=== PATIENT | female | born 1975 | race Caucasian/White ===

== ENCOUNTER 2016-11-14 23:04 | Emergency (ER) | payer MEDICAID, OTHER ==
[2016-11-14] MEDS ORDERED: Sodium Chloride 0.9% 10 ML Syringe FLUSH PRN (23:31)
[2016-11-14] MEDS ORDERED: Sodium Chloride 0.9% 1,000 ML IV ONE (23:31)
[2016-11-14] MEDS ORDERED: Ondansetron 4 MG/2 ML SDV IVPUSH ONE (23:31)
--- NOTE | 2016-11-15 00:52 | EDM.PDOC ---
ED HPI GENERAL MEDICAL PROBLEM - General Chief Complaint: Gastrointestinal Problem Stated Complaint: VOMITING Time Seen by Provider: 11/14/16 23:30 Source of Information: Reports: Patient History Limitations: Reports: No Limitations - History of Present Illness INITIAL COMMENTS - FREE TEXT/NARRATIVE: 41 y/o F with hx prior cholecystectomy with vomiting. Has vomited about six times today. No diarrhea. No abd pain. Vomiting started this afternoon after eating. Still feels nauseated. No fever. No known exposure to contaminated food or water. No recent travel. No ill contacts. No dysuria/hematuria. No respiratory symptoms. - Related Data Allergies Allergy/AdvReac Type Severity Reaction Status Date / Time No Known Allergies Allergy Verified 05/17/16 04:24 Home Meds: Home Meds levETIRAcetam [Keppra] 1,000 mg PO QAM 08/19/13 [History] levETIRAcetam [Keppra] 1,500 mg PO BEDTIME 08/19/13 [History] Amoxicillin/Potassium Clav [Augmentin 875-125 Tablet] 1 each PO BID #14 tablet 05/17/16 [Rx] Benzonatate [Tessalon Perles] 100 mg PO TID PRN #21 cap 05/17/16 [Rx] Ondansetron [Zofran ODT] 4 mg PO Q4H PRN #16 tab.dis 11/15/16 [Rx] Past Medical History HEENT History: Reports: Impaired Vision Other HEENT History: Wears glasses Cardiovascular History: Reports: Hypertension Genitourinary History: Reports: UTI, Recurrent Neurological History: Reports: Headaches, Chronic, Migraines, Seizure Dermatologic History: Reports: Eczema - Infectious Disease History Infectious Disease History: Reports: Chicken Pox, Measles, Mumps - Past Surgical History GI Surgical History: Reports: Cholecystectomy Social & Family History - Family History Family Medical History: Noncontributory - Tobacco Use Smoking Status *Q: Never Smoker Second Hand Smoke Exposure: No - Caffeine Use Caffeine Use: Reports: Soda, Tea - Alcohol Use Days Per Week of Alcohol Use: 0 - Recreational Drug Use Recreational Drug Use: No - Living Situation & Occupation Living situation: Reports: Single Occupation: Unemployed ED ROS GENERAL - Review of Systems Review Of Systems: See Below Constitutional: Denies: Fever HEENT: Reports: No Symptoms Respiratory: Denies: Shortness of Breath Cardiovascular: Denies: Chest Pain GI/Abdominal: Reports: Nausea, Vomiting. Denies: Abdominal Pain : Denies: Dysuria, Flank Pain Musculoskeletal: Reports: No Symptoms Skin: Reports: No Symptoms Neurological: Reports: No Symptoms ED EXAM, GI/ABD - Physical Exam Exam: See Below Exam Limited By: No Limitations General Appearance: Alert, WD/WN, No Apparent Distress Eyes: Bilateral: Normal Appearance Ears: Normal External Exam Nose: Normal Inspection Throat/Mouth: Normal Inspection, Normal Voice, No Airway Compromise Head: Atraumatic, Normocephalic Neck: Normal Inspection, Supple, Non-Tender, Full Range of Motion Respiratory/Chest: No Respiratory Distress, Lungs Clear, Normal Breath Sounds, Chest Non-Tender Cardiovascular: Normal Peripheral Pulses, Regular Rate, Rhythm, No Murmur GI/Abdominal Exam: Soft, Non-Tender, No Distention. No: Rebound Back Exam: No: CVA Tenderness (L), CVA Tenderness (R) Extremities: Normal Inspection Course - Vital Signs Last Recorded V/S: Last Vital Signs Temp 36.2 C 11/14/16 23:21 Pulse 64 11/14/16 23:21 Resp 20 11/14/16 23:21 BP 134/79 11/14/16 23:21 Pulse Ox 96 11/14/16 23:21 - Orders/Labs/Meds Orders: Active Orders 24 hr Category Date Time Status Peripheral IV Care [RC] . DIRECTED Care 11/14/16 23:31 Active Peripheral IV Care [RC] . DIRECTED Care 11/14/16 23:31 Active Sodium Chloride 0.9% [Saline Flush] Med 11/14/16 23:31 Active 10 ml FLUSH ASDIRECTED PRN Peripheral IV Insertion Adult [OM.PC] Routine Oth 11/14/16 23:31 Ordered Medication Orders Sodium Chloride (Saline Flush) 10 ml FLUSH ASDIRECTED PRN PRN Reason: Keep Vein Open Last Admin: 11/15/16 00:15 Dose: 10 ml Labs: Laboratory Tests 11/15/16 11/15/16 Range/Units 00:10 00:10 WBC 12.27 H (3.98-10.04) K/mm3 RBC 4.56 (3.98-5.22) M/mm3 Hgb 13.2 (11.2-15.7) gm/L Hct 38.9 (34.1-44.9) % MCV 85.3 (79.4-94.8) fl MCH 28.9 (25.6-32.2) pg MCHC 33.9 (32.2-35.5) g/dl RDW Std Deviation 39.5 (36.4-46.3) fL Plt Count 312 (182-369) K/mm3 MPV 10.4 (9.4-12.3) fl Neut % (Auto) 80.8 H (34.0-71.1) % Lymph % (Auto) 12.1 L (19.3-51.7) % Curry % (Auto) 5.9 (4.7-12.5) % Eos % (Auto) 0.6 L (0.7-5.8) Baso % (Auto) 0.2 (0.1-1.2) % Neut # (Auto) 9.92 H (1.56-6.13) K/mm3 Lymph # (Auto) 1.48 (1.18-3.74) K/mm3 Curry # (Auto) 0.73 H (0.24-0.36) K/mm3 Eos # (Auto) 0.07 (0.04-0.36) K/mm3 Baso # (Auto) 0.02 (0.01-0.08) K/mm3 Sodium 137 (136-145) mEq/L Potassium 3.9 (3.5-5.1) mEq/L Chloride 100 (98-107) mEq/L Carbon Dioxide 25 (21-32) mEq/L Anion Gap 15.9 H (5-15) BUN 13 (7-18) mg/dL Creatinine 0.8 (0.55-1.02) mg/dL Est Cr Clr Drug Dosing 69.83 mL/min Estimated GFR (MDRD) > 60 (>60) mL/min BUN/Creatinine Ratio 16.3 (14-18) Glucose 126 H (74-106) mg/dL Calcium 8.9 (8.5-10.1) mg/dL Total Bilirubin 0.8 (0.2-1.0) mg/dL AST 25 (15-37) U/L ALT 36 (14-59) U/L Alkaline Phosphatase 105 (46-116) U/L Total Protein 7.9 (6.4-8.2) g/dl Albumin 4.0 (3.4-5.0) g/dl Globulin 3.9 gm/dL Albumin/Globulin Ratio 1.0 (1-2) Lipase 115 (73-393) U/L Meds: Medications Generic Name Dose Route Start Last Admin Trade Name Nai PRN Reason Stop Dose Admin Sodium Chloride 10 ml 11/14/16 23:31 11/15/16 00:15 Saline Flush FLUSH 10 ml ASDIRECTED PRN Administration Keep Vein Open Discontinued Medications Generic Name Dose Route Start Last Admin Trade Name Nai PRN Reason Stop Dose Admin Sodium Chloride 1,000 mls @ 1,000 mls/hr 11/14/16 23:31 11/15/16 00:14 Normal Saline IV 11/15/16 00:30 1,000 mls/hr ONETIME ONE Administration Ondansetron HCl 4 mg 11/14/16 23:31 11/15/16 00:15 Zofran IVPUSH 11/14/16 23:32 4 mg ONETIME ONE Administration - Re-Assessments/Exams Free Text/Narrative Re-Assessment/Exam: 11/15/16 00:49 Feels somewhat better after fluids/zofran. Still mildly queasy but hasn't vomited in the ED. Abd continues to be nontender. Possible gastroeteritis. Rx zofran. Discussed return precautions. Departure - Departure Time of Disposition: 01:16 Disposition: Home, Self-Care 01 Clinical Impression: Vomiting Qualifiers: Vomiting type: unspecified Vomiting Intractability: non-intractable Nausea presence: with nausea Qualified Code(s): R11.2 - Nausea with vomiting, unspecified - Discharge Information Prescriptions: Ondansetron [Zofran ODT] 4 mg PO Q4H PRN #16 tab.dis PRN Reason: Nausea Referrals: Tank Ugalde MD [Primary Care Provider] - Forms: ED Department Discharge Additional Instructions: 1. Take zofran as needed for nausea 2. Drink plenty of fluids. Try to drink frequent sips of clear liquids. Once you can tolerate clear liquids and are feeling better, advance your diet to include bland foods. 3. Follow up with your primary doctor as needed for further care. 4. Return to the ED if you have worsening vomiting, abdominal pain, or other concerning symptoms. - My Orders Last 24 Hours: My Active Orders 11/14/16 23:31 Peripheral IV Care [RC] . DIRECTED Peripheral IV Care [RC] . DIRECTED Sodium Chloride 0.9% [Saline Flush] 10 ml FLUSH ASDIRECTED PRN Peripheral IV Insertion Adult [OM.PC] Routine - Assessment/Plan Last 24 Hours: My Active Orders 11/14/16 23:31 Peripheral IV Care [RC] . DIRECTED Peripheral IV Care [RC] . DIRECTED Sodium Chloride 0.9% [Saline Flush] 10 ml FLUSH ASDIRECTED PRN Peripheral IV Insertion Adult [OM.PC] Routine
[2016-11-15 01:34] VITALS: BP 124/82
== END 2016-11-15 01:28 | disposition home or self-care (01) ==
LOC: JD.ED 23:04
DX: R11.2 Nausea with vomiting, unspecified (principal); I10 Essential (primary) hypertension; Z87.440 Personal history of urinary (tract) infections; Z90.49 Acquired absence of other specified parts of digestive tract
CPT/HCPCS: 36415; 80053; 83690; 85025; 96361; 96374; 99284; J2405; J7040; J7050

== ENCOUNTER 2018-07-25 23:32 | Emergency (ER) | payer MEDICAID ==
[2018-07-25 23:47] VITALS: BP 133/89
--- NOTE | 2018-07-26 00:07 | EDM.PDOC ---
ED HPI GENERAL MEDICAL PROBLEM - General Chief Complaint: Abdominal Pain Stated Complaint: VOMITING/DIARRHEA Time Seen by Provider: 07/26/18 00:02 Source of Information: Reports: Patient History Limitations: Reports: No Limitations - History of Present Illness INITIAL COMMENTS - FREE TEXT/NARRATIVE: 43-year-old female presents the ED with acute onset of diarrhea first about 12 hours before she started to have nausea and vomiting. Diarrhea has been prolific almost every 20-30 minutes. She reports a large volume stool losses of yellowish fluid. No blood. Started vomiting about 1800 hrs. and has continued to vomit almost every half hour. This includes dry heaves with bilious emesis and no blood. Learning large quantities of bilious material when I was in the examining room. Her's is stool smells of rotavirus type infection. No nose at home is ill. Denies fever or chills. Diffuse lower abdominal cramping pain. Onset: Today Onset Date: 07/25/18 Onset Time: 08:00 (Chest with abdominal pain cramping and diarrhea about 8:00 this morning.) Duration: Hour(s):, Getting Worse, Other (Vomiting about 1800 hrs. today. Nothing his stay down) Location: Reports: Abdomen (Nausea vomiting and diarrhea. Diffuse lower abdominal cramping pain), Generalized (Weakness) Quality: Reports: Other Severity: Moderate (Intermittent upper and lower abdominal cramping pain) Improves with: Reports: None ( did attend) Worsens with: Reports: Eating Context: Reports: Other (Continuous occurrence). Denies: Activity, Exercise, Lifting, Sick Contact, Trauma Associated Symptoms: Reports: Loss of Appetite, Malaise, Nausea/Vomiting, Weakness (Generalized.). Denies: Confusion, Chest Pain, Cough, cough w sputum, Diaphoresis, Fever/Chills, Headaches, Rash, Seizure, Shortness of Breath, Syncope Treatments CAR CHASER: Reports: Other (see below) (Nothing will stay down) Abdominal Pain Score (Numeric/FACES): 7 - Related Data Allergies Allergy/AdvReac Type Severity Reaction Status Date / Time No Known Allergies Allergy Verified 07/25/18 23:47 Home Meds: Home Meds levETIRAcetam [Keppra] 1,000 mg PO QAM 08/19/13 [History] levETIRAcetam [Keppra] 1,500 mg PO BEDTIME 08/19/13 [History] Dicyclomine [Bentyl] 20 mg PO Q6H PRN #5 tablet 07/26/18 [Rx] Ondansetron [Zofran] 4 mg BUCCAL Q6H PRN #10 tab 07/26/18 [Rx] Past Medical History HEENT History: Reports: Impaired Vision Other HEENT History: Wears glasses Cardiovascular History: Reports: Hypertension Genitourinary History: Reports: UTI, Recurrent Neurological History: Reports: Headaches, Chronic, Migraines, Seizure Dermatologic History: Reports: Eczema - Infectious Disease History Infectious Disease History: Reports: Chicken Pox, Measles, Mumps - Past Surgical History GI Surgical History: Reports: Cholecystectomy Social & Family History - Family History Family Medical History: Noncontributory - Tobacco Use Smoking Status *Q: Never Smoker - Caffeine Use Caffeine Use: Reports: None - Recreational Drug Use Recreational Drug Use: No - Living Situation & Occupation Living situation: Reports: Single Occupation: Unemployed ED ROS GENERAL - Review of Systems Review Of Systems: See Below Constitutional: Reports: Malaise, Weakness, Fatigue, Decreased Appetite. Denies : Fever, Chills HEENT: Reports: Glasses Respiratory: Reports: No Symptoms Cardiovascular: Reports: No Symptoms Endocrine: Reports: Fatigue GI/Abdominal: Reports: Abdominal Pain (Both upper abdominal pain in epigastrium and lower abdominal cramping pain.), Diarrhea (Fairly large volume yellowish stool.), Nausea, Vomiting (Has vomited about 8 times since 1800 hrs. today. She estimates diarrhea greater than 20 times. Small possibility of foodborne poisoning or toxin exposure by eating out at [facility] 2 days ago) : Reports: Other (Decreased urinary output) Musculoskeletal: Reports: No Symptoms Skin: Reports: No Symptoms Neurological: Reports: No Symptoms, Seizure Psychiatric: Reports: Anxiety Hematologic/Lymphatic: Reports: No Symptoms (Has a seizure disorder taking 1000 mg of Keppra in the morning and 1500 mg at bedtime.) Immunologic: Reports: No Symptoms ED EXAM, GI/ABD - Physical Exam Exam: See Below Exam Limited By: No Limitations General Appearance: Alert, Moderate Distress (She has vomiting large quantities of bilious material him in the room.) Eyes: Bilateral: Normal Appearance (No scleral icterus) Head: Atraumatic, Normocephalic Neck: Normal Inspection, Supple, Non-Tender, Full Range of Motion. No: Lymphadenopathy (L), Lymphadenopathy (R) Respiratory/Chest: No Respiratory Distress, Lungs Clear, Normal Breath Sounds, No Accessory Muscle Use Cardiovascular: Normal Peripheral Pulses, Regular Rate, Rhythm, No Edema, No Gallop, No Murmur, No Rub GI/Abdominal Exam: Tender (Mildly tender to palpation in the epigastrium which appears to be muscular.), Abnormal Bowel Sounds (I'll sounds are hyperactive in all 4 quadrants). No: Guarding, Rigid, Rebound Extremities: Normal Inspection, Normal Range of Motion, Non-Tender Neurological: Alert, Oriented, CN II-XII Intact, Normal Cognition Psychiatric: Anxious Skin Exam: Warm, Dry, Intact, Normal Color, No Rash, Other (Does feel mildly warm to palpation) Course - Vital Signs Last Recorded V/S: Last Vital Signs Temp 37.1 C 07/25/18 23:44 Pulse 88 07/25/18 23:44 Resp 16 07/25/18 23:44 BP 133/89 07/25/18 23:44 Pulse Ox 95 07/25/18 23:44 - Orders/Labs/Meds Orders: Active Orders 24 hr Category Date Time Status C DIFFICILE BY PCR W/NAP1 [MOLEC] Stat Lab 07/26/18 02:06 Received CULTURE STOOL + SHIGATOX [RM] Stat Lab 07/26/18 02:06 Received Dextrose 5%-Lactated Ringers 1,000 ml Med 07/26/18 00:15 Active IV ASDIRECTED Ketorolac [Toradol] Med 07/26/18 00:15 Active 30 mg IVPUSH ONETIME Isolation [COMM] Stat Oth 07/26/18 00:10 Ordered Medication Orders Dextrose/Lactated Ringer's (Dextrose 5%-Lactated Ringers) 1,000 mls @ 999 mls/ hr IV ASDIRECTED ZENA Last Admin: 07/26/18 00:22 Dose: 999 mls/hr Ketorolac Tromethamine (Toradol) 30 mg IVPUSH ONETIME ZENA Last Admin: 07/26/18 00:24 Dose: 30 mg Labs: Laboratory Tests 07/26/18 07/26/18 Range/Units 00:35 00:35 WBC 12.46 H (3.98-10.04) K/mm3 RBC 4.54 (3.98-5.22) M/mm3 Hgb 12.8 (11.2-15.7) gm/L Hct 39.4 (34.1-44.9) % MCV 86.8 (79.4-94.8) fl MCH 28.2 (25.6-32.2) pg MCHC 32.5 (32.2-35.5) g/dl RDW Std Deviation 40.9 (36.4-46.3) fL Plt Count 298 (182-369) K/mm3 MPV 10.5 (9.4-12.3) fl Neutrophils % (Manual) 87 H (40-60) % Band Neutrophils % 4 (0-10) % Lymphocytes % (Manual) 7 L (20-40) % Atypical Lymphs % 0 % Monocytes % (Manual) 1 L (2-10) % Eosinophils % (Manual) 1 (0.7-5.8) % Basophils % (Manual) 0 L (0.1-1.2) Toxic Granulation 1+ slight Platelet Estimate Adequate Plt Morphology Comment Normal RBC Morph Comment Normal Sodium 137 (136-145) mEq/L Potassium 3.8 (3.5-5.1) mEq/L Chloride 102 (98-107) mEq/L Carbon Dioxide 25 (21-32) mEq/L Anion Gap 13.8 (5-15) BUN 11 (7-18) mg/dL Creatinine 0.9 (0.55-1.02) mg/dL Est Cr Clr Drug Dosing 60.82 mL/min Estimated GFR (MDRD) > 60 (>60) mL/min BUN/Creatinine Ratio 12.2 L (14-18) Glucose 189 H (74-106) mg/dL Calcium 9.3 (8.5-10.1) mg/dL Total Bilirubin 0.9 (0.2-1.0) mg/dL AST 22 (15-37) U/L ALT 30 (14-59) U/L Alkaline Phosphatase 100 (46-116) U/L C-Reactive Protein 2.0 H* (<1.0) mg/dL Total Protein 7.3 (6.4-8.2) g/dl Albumin 3.4 (3.4-5.0) g/dl Globulin 3.9 gm/dL Albumin/Globulin Ratio 0.9 L (1-2) Lipase 85 (73-393) U/L Meds: Medications Generic Name Dose Route Start Last Admin Trade Name Freq PRN Reason Stop Dose Admin Dextrose/Lactated Ringer's 1,000 mls @ 999 mls/hr 07/26/18 00:15 07/26/18 00: 22 Dextrose 5%-Lactated Ringers IV 999 mls/hr ASDIRECTED ZENA Administration Ketorolac Tromethamine 30 mg 07/26/18 00:15 07/26/18 00:24 Toradol IVPUSH 30 mg ONETIME ZENA Administration Discontinued Medications Generic Name Dose Route Start Last Admin Trade Name Nai PRN Reason Stop Dose Admin Dicyclomine HCl 20 mg 07/26/18 03:02 07/26/18 03:18 Bentyl PO 07/26/18 03:03 20 mg ONETIME ONE Administration Diphenhydramine HCl 25 mg 07/26/18 00:08 07/26/18 00:23 Benadryl IVPUSH 07/26/18 00:09 25 mg ONETIME ONE Administration Metoclopramide HCl 10 mg 07/26/18 00:08 07/26/18 00:20 Reglan IVPUSH 07/26/18 00:09 10 mg ONETIME ONE Administration Ondansetron HCl 4 mg 07/26/18 03:01 07/26/18 03:18 Zofran IVPUSH 07/26/18 03:02 4 mg ONETIME ONE Administration - Radiology Interpretation Free Text/Narrative:: 43-year-old female presents to the ED with acute onset of nausea vomiting and severe diarrhea. Diarrhea started this morning upon awakening loose watery and yellow large quantities almost every 20 minutes. She denies being on any antibiotics in the last 6 weeks. Small possibility of foodborne illness associated [facility] 2 days ago. She has prolific diarrhea and started vomiting about 1800 hrs. Tends to vomit while in the ED. Grade fever clinically. Plan stool if one becomes available will be checked for C. difficile since her diarrhea so prolific and also for white blood cells. She smells like rotavirus infection however. Plan IV D5 Ringer's lactate at open. Reglan 10 mg IV with Benadryl 25 mg IV for nausea relief. Toradol 30 mg IV for abdominal cramping pain relief. Routine labs ordered. - Re-Assessments/Exams Free Text/Narrative Re-Assessment/Exam: 07/26/18 01:49 Patient reports feeling much better with no further nausea or vomiting. She's had no diarrhea since she's been in the department. Labs are back. White count is elevated at 12.46 with 87 neutrophils and 4% band cells reported. Hemoglobin is 12.8. Hematocrit is 39.4 .Platlet Count 298,000.. Sodium is 137 with a potassium of 3.8. Chloride 102 with a bicarbonate 25. Anion gap is 13.8. BUN is 11 with a creatinine of 0.9. GFR is greater than 60. Glucose is 189. Calcium is 9.3 bilirubin 0.9 with remainder liver function normal C-reactive protein is 2.0. Total protein is 7.3 with an albumin fraction of 3.4. Lipase is normal at 85 07/26/18 02:00 I am going to wait for a stool sample to identify whether or not there is a bacterial component of her illness due to elevated CRP at 2.0 and elevated white count with left shift. 07/26/18 02:53 patient has been able to provide a stool sample and were waiting for the results of this test before discharging her. 07/26/18 03:02 starting to feel mildly nauseated again. We'll give her Zofran 4 mg IV. Will also give her Bentyl 20 mg by mouth. Still awaiting the results of the stool analysis. 07/26/18 03:42 initial stool sample came back negative for any white blood cells. This suggests a viral etiology. Will therefore be discharged to home using Zofran 4 mg every 4 hours when necessary for nausea relief and Bentyl 20 mg every 6 hours needed for control of vomiting and abdominal cramping. Clear fluid diet to slowly be advanced to full fluids over the next day and a half. Departure - Departure Time of Disposition: 03:43 Disposition: Home, Self-Care 01 Condition: Fair Clinical Impression: Gastroenteritis, Vomiting - Discharge Information *PRESCRIPTION DRUG MONITORING PROGRAM REVIEWED*: Not Applicable *COPY OF PRESCRIPTION DRUG MONITORING REPORT IN PATIENT HERMINIA: Not Applicable Prescriptions: Dicyclomine [Bentyl] 20 mg PO Q6H PRN #5 tablet PRN Reason: Abdominal cramps/diarrhea Ondansetron [Zofran] 4 mg BUCCAL Q6H PRN #10 tab PRN Reason: nausea or vomiting Referrals: Tank Ugalde MD [Primary Care Provider] - Forms: ED Department Discharge Additional Instructions: Evaluation the emergency room this morning in regards to development of severe gastroenteritis with nausea vomiting and excessive amount of diarrhea. You're treated in the ER with medications to stop vomiting and intravenous fluid replacement therapy. Tests are suggestive of a possible bacterial source of illness and therefore you're kept in the ED until stool cultures and sampling could be obtained. Treatment at home is clear fluids such as Gatorade/Powerade 5 -6 ounces sipped per hour to maintain hydration. We try soda crackers first that this is tolerated may have Jell-O at any time. Suggest a trial of toast with jam only on it or bread with jam. If this is tolerated may advance to broth soup or turkey rice last chicken noodle soup. Avoid all dairy products and no apple juice or grape juice until stools are formed backup which will usually be 4 days after the diarrhea stops. He was sent home with a prescription for Zofran 4 mg to be taken under the tongue every 4-6 hours necessary to prevent any further nausea or vomiting so that she can keep fluids down. Suggest use of Bentyl 20 mg every 6 hours for 3 doses and then only as needed if you have further diarrhea. - My Orders Last 24 Hours: My Active Orders 07/26/18 00:10 Isolation [COMM] Stat 07/26/18 00:15 Dextrose 5%-Lactated Ringers 1,000 ml IV ASDIRECTED Ketorolac [Toradol] 30 mg IVPUSH ONETIME 07/26/18 02:06 C DIFFICILE BY PCR W/NAP1 [MOLEC] Stat CULTURE STOOL + SHIGATOX [RM] Stat - Assessment/Plan Last 24 Hours: My Active Orders 07/26/18 00:10 Isolation [COMM] Stat 07/26/18 00:15 Dextrose 5%-Lactated Ringers 1,000 ml IV ASDIRECTED Ketorolac [Toradol] 30 mg IVPUSH ONETIME 07/26/18 02:06 C DIFFICILE BY PCR W/NAP1 [MOLEC] Stat CULTURE STOOL + SHIGATOX [RM] Stat
[2018-07-26] MEDS ORDERED: Metoclopramide 10 MG/2 ML SDV IVPUSH ONE (00:08)
[2018-07-26] MEDS ORDERED: diphenhydrAMINE 50 MG/ML SDV IVPUSH ONE (00:08)
[2018-07-26] MEDS ORDERED: Dextrose 5%-Lactated Ringers 1,000 ML IV SCH (00:15)
[2018-07-26] MEDS ORDERED: Ketorolac 30 MG/ML SDV IVPUSH SCH (00:15)
[2018-07-26] MEDS ORDERED: Ondansetron 4 MG/2 ML SDV IVPUSH ONE (03:01)
[2018-07-26] MEDS ORDERED: Dicyclomine 10 MG Cap PO ONE (03:02)
[2018-07-26] MEDS ORDERED: Ondansetron 4 MG Tab.DIS PO ONE (03:53)
== END 2018-07-26 03:58 | disposition home or self-care (01) ==
LOC: JD.ED 23:32
DX: K52.9 Noninfective gastroenteritis and colitis, unspecified (principal); I10 Essential (primary) hypertension; Z79.899 Other long term (current) drug therapy
CPT/HCPCS: 36415; 80053; 83690; 85007; 85027; 86140; 87046; 87427; 87493; 89055; 96361; 96374; 96375; 99284; A9270; J1200; J1885; J2405; J2765; J7042

== ENCOUNTER 2019-01-09 08:53 | Emergency (ER) | payer MEDICAID ==
[2019-01-09 09:10] VITALS: BP 159/107; PULSE 87
--- NOTE | 2019-01-09 10:36 | CR ---
Left shoulder: Three views of the left shoulder were obtained. Comparison: No prior left shoulder exam is available. Small calcifications are seen off the lateral humeral head likely representing changes of calcific tendinitis. Acromioclavicular joint appears within normal limits. No acute fracture or other abnormality is seen. Impression: 1. Calcifications which are felt compatible with calcific tendinitis. Diagnostic code #3
--- NOTE | 2019-01-09 12:11 | EDM.PDOC ---
ED HPI GENERAL MEDICAL PROBLEM - General Chief Complaint: Upper Extremity Injury/Pain Stated Complaint: LT ARM PAIN Time Seen by Provider: 01/09/19 09:27 Source of Information: Reports: Patient, RN Notes Reviewed - History of Present Illness INITIAL COMMENTS - FREE TEXT/NARRATIVE: 43-year-old lady comes in the left shoulder pain. He states the left shoulder started hurting her about 10 days ago. Not aware of any particular injury. Fallen. Eyes history of prior problems with the left shoulder. No other joints giving her trouble at this time. No fever or chills. Left Shoulder Pain Score (Numeric/FACES): 10 - Related Data Allergies Allergy/AdvReac Type Severity Reaction Status Date / Time No Known Allergies Allergy Verified 01/09/19 09:11 Home Meds: Home Meds levETIRAcetam [Keppra] 1,000 mg PO QAM 08/19/13 [History] levETIRAcetam [Keppra] 1,500 mg PO BEDTIME 08/19/13 [History] Naproxen [Naprosyn] 500 mg PO Q12HR #14 tab 01/09/19 [Rx] Past Medical History HEENT History: Reports: Impaired Vision Other HEENT History: Wears glasses Cardiovascular History: Reports: Hypertension Genitourinary History: Reports: UTI, Recurrent Neurological History: Reports: Headaches, Chronic, Migraines, Seizure Dermatologic History: Reports: Eczema - Infectious Disease History Infectious Disease History: Reports: Chicken Pox, Measles, Mumps - Past Surgical History GI Surgical History: Reports: Cholecystectomy Social & Family History - Family History Family Medical History: Noncontributory - Tobacco Use Smoking Status *Q: Never Smoker - Caffeine Use Caffeine Use: Reports: Coffee, Soda - Living Situation & Occupation Living situation: Reports: Single Occupation: Unemployed Review of Systems - Review of Systems Review Of Systems: See Below Constitutional: Denies: Chills, Fever Mouth/Throat: Reports: No Symptoms Respiratory: Denies: Shortness of Breath, Wheezing Cardiovascular: Denies: Chest Pain GI/Abdominal: Denies: Abdominal Pain, Nausea, Vomiting Musculoskeletal: Reports: Shoulder Pain, Other (The pain does have time radiate to her left wrist and hand, the pain is worse with motion). Denies: Neck Pain, Back Pain Skin: Reports: No Symptoms Neurological: Denies: Numbness, Tingling, Weakness ED EXAM, GENERAL - Physical Exam Exam: See Below General Appearance: Alert, Mild Distress Head: Atraumatic Neck: Supple, Non-Tender, Full Range of Motion Respiratory/Chest: No Respiratory Distress, Lungs Clear, Normal Breath Sounds Cardiovascular: Regular Rate, Rhythm Extremities: Other (There is moderate localized tenderness anterior left shoulder, lateral superior posterior shoulder nontender. She does have pain with motion and every direction including abduction. No effusion, no warmth or erythema.) Neurological: Alert, Oriented Skin Exam: Warm, Dry, Normal Color Course - Vital Signs Last Recorded V/S: Last Vital Signs Temp 97.9 F 01/09/19 09:06 Pulse 87 01/09/19 09:06 Resp 18 01/09/19 09:06 BP 159/107 H 01/09/19 09:06 Pulse Ox 97 01/09/19 09:06 - Re-Assessments/Exams Free Text/Narrative Re-Assessment/Exam: 01/09/19 12:21 X-rays of the shoulder do not show acute fracture but do show larger calcification and a couple of smaller calcifications also right off of the proximal humerus. awaiting radiology report. Discharge instructions as documented. Departure - Departure Time of Disposition: 12:09 Disposition: Home, Self-Care 01 Condition: Fair Clinical Impression: Shoulder pain, left Qualifiers: Chronicity: acute Qualified Code(s): M25.512 - Pain in left shoulder - Discharge Information Prescriptions: Naproxen [Naprosyn] 500 mg PO Q12HR #14 tab Instructions: Shoulder Pain, [id number] Referrals: Tank Ugalde MD [Primary Care Provider] - Forms: ED Department Discharge Additional Instructions: Rest left arm and shoulder, alternate ice and heat as needed. Naprosyn 500 mg twice daily for pain and inflammation, see Dr. La, Orthopedist next available appointment.
== END 2019-01-09 12:20 | disposition home or self-care (01) ==
LOC: JD.ED 08:53
DX: M25.512 Pain in left shoulder (principal); I10 Essential (primary) hypertension; Z90.49 Acquired absence of other specified parts of digestive tract
CPT/HCPCS: 73030-26-LT; 73030-LT; 99283; 99283-25

== ENCOUNTER 2019-01-10 19:31 | Emergency (ER) | payer MEDICAID ==
[2019-01-10 20:03] VITALS: BP 157/116; PULSE 86
[2019-01-10] MEDS ORDERED: Ketorolac 60 MG/2 ML SDV IM ONE (22:08)
[2019-01-10] MEDS ORDERED: Ondansetron 4 MG Tab.DIS PO ONE (22:08)
--- NOTE | 2019-01-10 22:22 | EDM.PDOC ---
ED HPI GENERAL MEDICAL PROBLEM - General Chief Complaint: Upper Extremity Injury/Pain Stated Complaint: LEFT SHOULDER PAIN/UPPER ARM Time Seen by Provider: 01/10/19 21:52 Source of Information: Reports: Patient, Old Records, RN Notes Reviewed History Limitations: Reports: No Limitations - History of Present Illness INITIAL COMMENTS - FREE TEXT/NARRATIVE: Patient is a 43-year-old female who presents to the ED for evaluation of left shoulder pain. The patient was evaluated here yesterday by Dr. Perera, and was found to not have any started fracture or bony abnormality in her left shoulder joint. Patient states that she was given naproxen for pain relief, and she did take 2 doses as prescribed however this has not provided much relief. Patient states that she feels quite nervous having to see Dr. La tomorrow, and she is having some subsequent nausea with this. She states that today while she was at a friend's house playing cards she started thinking about seeing the orthopedist, and began to feel hot, nauseous and felt a small headache. Patient states she is not gotten much sleep last night due to the pain in her shoulder. Left Arm Pain Score (Numeric/FACES): 8 - Related Data Allergies Allergy/AdvReac Type Severity Reaction Status Date / Time No Known Allergies Allergy Verified 01/10/19 20:03 Home Meds: Home Meds levETIRAcetam [Keppra] 1,000 mg PO QAM 08/19/13 [History] levETIRAcetam [Keppra] 1,500 mg PO BEDTIME 08/19/13 [History] Naproxen [Naprosyn] 500 mg PO Q12HR #14 tab 01/09/19 [Rx] Ondansetron [Zofran ODT] 4 mg PO Q8H PRN #10 tab.dis 01/10/19 [Rx] Past Medical History HEENT History: Reports: Impaired Vision Other HEENT History: Wears glasses Cardiovascular History: Reports: Hypertension Respiratory History: Reports: None Genitourinary History: Reports: UTI, Recurrent 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 Musculoskeletal History: Reports: Arthritis Neurological History: Reports: Headaches, Chronic, Migraines, Seizure Psychiatric History: Reports: None Endocrine/Metabolic History: Reports: Obesity/BMI 30+ Hematologic History: Reports: None Immunologic History: Reports: None Oncologic (Cancer) History: Reports: None Dermatologic History: Reports: Eczema - Infectious Disease History Infectious Disease History: Reports: Chicken Pox, Measles, Mumps - Past Surgical History Head Surgeries/Procedures: Reports: None GI Surgical History: Reports: Cholecystectomy Social & Family History - Family History Family Medical History: Noncontributory - Tobacco Use Smoking Status *Q: Never Smoker - Caffeine Use Caffeine Use: Reports: Coffee, Soda - Recreational Drug Use Recreational Drug Use: No - Living Situation & Occupation Living situation: Reports: Single Occupation: Unemployed Review of Systems - Review of Systems Review Of Systems: See Below Constitutional: Reports: No Symptoms Eyes: Reports: No Symptoms Ears: Reports: No Symptoms Nose: Reports: No Symptoms Mouth/Throat: Reports: No Symptoms Respiratory: Reports: No Symptoms Cardiovascular: Reports: No Symptoms GI/Abdominal: Reports: Nausea. Denies: Vomiting Genitourinary: Reports: No Symptoms Musculoskeletal: Reports: Shoulder Pain (Left) Skin: Reports: No Symptoms Neurological: Denies: Numbness, Pre-Existing Deficit, Tingling Psychiatric: Reports: No Symptoms ED EXAM, GENERAL - Physical Exam Exam: See Below Exam Limited By: No Limitations General Appearance: Alert, WD/WN, No Apparent Distress, Anxious Throat/Mouth: Normal Inspection, Normal Lips, Normal Teeth, Normal Gums, Normal Oropharynx, Normal Voice, No Airway Compromise Head: Atraumatic, Normocephalic Respiratory/Chest: No Respiratory Distress, Lungs Clear, Normal Breath Sounds, No Accessory Muscle Use, Chest Non-Tender Cardiovascular: Normal Peripheral Pulses, Regular Rate, Rhythm, No Murmur Peripheral Pulses: 3+: Radial (L), Radial (R) GI/Abdominal: Normal Bowel Sounds, Soft, Non-Tender, No Distention, No Mass Extremities: Normal Inspection, Normal Capillary Refill, Limited Range of Motion (of left shoulder d/t pain) Neurological: Alert, Oriented, Normal Cognition, No Motor/Sensory Deficits Psychiatric: Normal Affect, Normal Mood, Anxious Skin Exam: Warm, Dry, Intact, Normal Color, No Rash Course - Vital Signs Last Recorded V/S: Last Vital Signs Temp 98.3 F 01/10/19 20:00 Pulse 86 01/10/19 20:00 Resp 16 01/10/19 20:00 BP 157/116 H 01/10/19 20:00 Pulse Ox 97 01/10/19 20:00 - Orders/Labs/Meds Orders: Active Orders 24 hr Category Date Time Status levETIRAcetam [Keppra] Med 01/11/19 22:08 Once 1,500 mg PO ONETIME ONE Medication Orders Levetiracetam (Keppra) 1,500 mg PO ONETIME ONE Stop: 01/11/19 22:09 Meds: Medications Generic Name Dose Route Start Last Admin Trade Name Freq PRN Reason Stop Dose Admin Levetiracetam 1,500 mg 01/11/19 22:08 Keppra PO 01/11/19 22:09 ONETIME ONE Discontinued Medications Generic Name Dose Route Start Last Admin Trade Name Freq PRN Reason Stop Dose Admin Ketorolac Tromethamine 60 mg 01/10/19 22:08 Toradol IM 01/10/19 22:09 ONETIME ONE Ondansetron HCl 4 mg 01/10/19 22:08 Zofran Odt PO 01/10/19 22:09 ONETIME ONE - Re-Assessments/Exams Free Text/Narrative Re-Assessment/Exam: 01/10/19 22:20 Patient presents to the ED for evaluation of shoulder pain. The patient's last dose approximately this morning, this is not providing much benefit I will give her a injection of Toradol, for milligrams Zofran for nausea relief in the ER, the patient will see Dr. La tomorrow, and they will come up with an appropriate pain control plan. Patient states that she normally takes 1500 mg of Keppra at 9 PM, however due to the long wait time in the ER tonight she was unable to take her home dose, I did order 1 dose of this as well. We'll discharge the patient home with general recommendations Departure - Departure Time of Disposition: 22:20 Disposition: Home, Self-Care 01 Condition: Fair Clinical Impression: Left shoulder pain Qualifiers: Chronicity: acute Qualified Code(s): M25.512 - Pain in left shoulder - Discharge Information *PRESCRIPTION DRUG MONITORING PROGRAM REVIEWED*: No *COPY OF PRESCRIPTION DRUG MONITORING REPORT IN PATIENT HERMINIA: No Prescriptions: Ondansetron [Zofran ODT] 4 mg PO Q8H PRN #10 tab.dis PRN Reason: Nausea Instructions: Shoulder Range of Motion Exercises, Shoulder Pain, [id number] Referrals: Tank Ugalde MD [Primary Care Provider] - Additional Instructions: You have been evaluated in the ED for your left shoulder pain. Please use ice as tolerated to the affected area. You were given a dose of antinausea medication, and an anti-inflammatory injection in management of your pain relief and nausea at [facility]'s ER visit. Follow-up with Dr. La tomorrow for your scheduled appointment for further management of your shoulder pain. Please return to ED if your symptoms should change or worsen. - My Orders Last 24 Hours: My Active Orders 01/11/19 22:08 levETIRAcetam [Keppra] 1,500 mg PO ONETIME ONE - Assessment/Plan Last 24 Hours: My Active Orders 01/11/19 22:08 levETIRAcetam [Keppra] 1,500 mg PO ONETIME ONE
[2019-01-10] MEDS ORDERED: levETIRAcetam 500 MG Tab ONE (22:26)
[2019-01-11] MEDS ORDERED: levETIRAcetam 500 MG Tab PO ONE (22:08)
== END 2019-01-10 22:40 | disposition home or self-care (01) ==
LOC: JD.ED 19:31
DX: M25.512 Pain in left shoulder (principal); I10 Essential (primary) hypertension; E66.9 Obesity, unspecified; Z90.49 Acquired absence of other specified parts of digestive tract; Z68.42 Body mass index [BMI] 45.0-49.9, adult
CPT/HCPCS: 96372; 99282; A9270; J1885; 99283

== ENCOUNTER 2019-05-30 13:14 | Emergency (ER) | payer MEDICAID ==
--- NOTE | 2019-05-30 13:59 | EDM.PDOC ---
<Karley Carrera - Last Filed: 05/30/19 13:51> ED HPI GENERAL MEDICAL PROBLEM - General Chief Complaint: Abdominal Pain Stated Complaint: L SIDE PAIN Time Seen by Provider: 05/30/19 13:35 Source of Information: Reports: Patient History Limitations: Reports: No Limitations - History of Present Illness INITIAL COMMENTS - FREE TEXT/NARRATIVE: Patient is a pleasant 44-year-old female who has a history of epilepsy presents to the ED for intermittent left lower abdominal pain, constipation, and a decreased appetite. She reports the pain started a week ago, lasted for three days, then resolved, where she had no pain for a day, then the pain started again on Wednesday. Today is Wednesday. The pain is intermittent and ranges from a cramping pain to a sharp pain at times. With rest the pain is about a 2/10 but with movement or palpation the pain increases to an 8/10. She occasionally will feel nauseous when the pain comes on. She has not felt like eating for the past week, but has been trying to stay on top of fluids. Normally the patient reports she has a bowel movement 2-3 times per day, but for the past few days she has only gone once each day and it is a small amount of hard stool. She took Ex-Lax and 2 cups of prune juice last night. No results until arrival in the ED today. She reports when she arrived in the ED her lower abdomen cramped and she had two small bowel movements. The first movement was a small amount of hard stool and the second movement was a small amount of watery stool. Denies noting blood in any bowel movements in the past week. Denies nausea, vomiting, shortness of breath, or chest pain. Left Lower Abdominal Pain Score (Numeric/FACES): 2 - Related Data Allergies Allergy/AdvReac Type Severity Reaction Status Date / Time No Known Allergies Allergy Verified 05/30/19 14:50 Home Meds: Home Meds levETIRAcetam [Keppra] 1,000 mg PO QAM 08/19/13 [History] levETIRAcetam [Keppra] 1,500 mg PO BEDTIME 08/19/13 [History] Ondansetron [Zofran ODT] 4 mg PO Q8H PRN #10 tab.dis 01/10/19 [Rx] Amoxicillin/Clavulanate K [Augmentin 875-125 MG] 1 tab PO BID #20 tablet [Rx] Naproxen [Naprosyn] 500 mg PO Q12HR PRN 05/30/19 [History] Past Medical History HEENT History: Reports: Impaired Vision Other HEENT History: Wears glasses Cardiovascular History: Reports: Hypertension Respiratory History: Reports: None Genitourinary History: Reports: UTI, Recurrent 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 Musculoskeletal History: Reports: Arthritis Neurological History: Reports: Headaches, Chronic, Migraines, Seizure Psychiatric History: Reports: None Endocrine/Metabolic History: Reports: Obesity/BMI 30+ Hematologic History: Reports: None Immunologic History: Reports: None Oncologic (Cancer) History: Reports: None Dermatologic History: Reports: Eczema - Infectious Disease History Infectious Disease History: Reports: Chicken Pox, Measles, Mumps - Past Surgical History Head Surgeries/Procedures: Reports: None GI Surgical History: Reports: Cholecystectomy Social & Family History - Family History Family Medical History: Noncontributory - Tobacco Use Smoking Status *Q: Never Smoker Second Hand Smoke Exposure: No - Caffeine Use Caffeine Use: Reports: None - Recreational Drug Use Recreational Drug Use: No - Living Situation & Occupation Living situation: Reports: Single Occupation: Unemployed ED ROS GENERAL - Review of Systems Review Of Systems: See Below Constitutional: Reports: Decreased Appetite. Denies: Fever, Chills, Weakness Respiratory: Reports: No Symptoms. Denies: Shortness of Breath, Cough Cardiovascular: Reports: No Symptoms. Denies: Chest Pain, Edema, Syncope GI/Abdominal: Reports: Abdominal Pain (left lower quadrant that radiates to lower back), Constipation, Decreased Appetite, Nausea (intermittent). Denies: Black Stool, Bloody Stool, Diarrhea, Vomiting : Reports: No Symptoms. Denies: Dysuria Musculoskeletal: Reports: No Symptoms. Denies: Neck Pain, Back Pain Skin: Reports: No Symptoms. Denies: Rash Neurological: Reports: No Symptoms. Denies: Dizziness, Headache, Syncope Psychiatric: Reports: No Symptoms ED EXAM, GI/ABD - Physical Exam Exam: See Below Exam Limited By: No Limitations General Appearance: Alert, WD/WN, No Apparent Distress Head: Atraumatic, Normocephalic Neck: Normal Inspection, Supple, Non-Tender, Full Range of Motion Respiratory/Chest: No Respiratory Distress, Lungs Clear, Normal Breath Sounds, No Accessory Muscle Use, Chest Non-Tender Cardiovascular: Normal Peripheral Pulses, Regular Rate, Rhythm, No Edema, No Gallop, No Murmur, No Rub GI/Abdominal Exam: Soft, No Organomegaly, No Distention, No Mass, Abnormal Bowel Sounds (decreased in all four quadrants), Other (tender with palpation over LUQ ) Back Exam: Normal Inspection, Full Range of Motion, NT Extremities: Normal Inspection, Normal Range of Motion, Non-Tender, Normal Capillary Refill, No Pedal Edema Neurological: Alert, Oriented, Normal Cognition, Normal Gait, No Motor/Sensory Deficits Psychiatric: Normal Affect, Normal Mood Skin Exam: Warm, Dry, Intact, Normal Color, No Rash Course - Vital Signs Last Recorded V/S: Last Vital Signs Temp 97.9 F 05/30/19 13:29 Pulse 80 05/30/19 13:29 Resp 18 05/30/19 13:29 BP 133/85 05/30/19 13:29 Pulse Ox 95 05/30/19 13:29 - Orders/Labs/Meds Orders: Active Orders 24 hr Category Date Time Status Peripheral IV Care [RC] . DIRECTED Care 05/30/19 15:37 Active Sodium Chloride 0.9% [Saline Flush] Med 05/30/19 15:36 Active 10 ml FLUSH ASDIRECTED PRN Peripheral IV Insertion Adult [OM.PC] Routine Oth 05/30/19 15:36 Ordered Medication Orders Sodium Chloride (Saline Flush) 10 ml FLUSH ASDIRECTED PRN PRN Reason: Keep Vein Open Last Admin: 05/30/19 17:22 Dose: 10 ml Admin: 05/30/19 16:04 Dose: 10 ml Labs: Laboratory Tests 05/30/19 05/30/19 05/30/19 Range/Units 14:43 14:43 16:55 WBC 11.74 H (3.98-10.04) K/mm3 RBC 4.62 (3.98-5.22) M/mm3 Hgb 13.0 (11.2-15.7) gm/dl Hct 40.5 (34.1-44.9) % MCV 87.7 (79.4-94.8) fl MCH 28.1 (25.6-32.2) pg MCHC 32.1 L (32.2-35.5) g/dl RDW Std Deviation 41.5 (36.4-46.3) fL Plt Count 363 (182-369) K/mm3 MPV 10.4 (9.4-12.3) fl Neut % (Auto) 81.0 H (34.0-71.1) % Lymph % (Auto) 11.4 L (19.3-51.7) % [place] % (Auto) 6.6 (4.7-12.5) % Eos % (Auto) 0.5 L (0.7-5.8) Baso % (Auto) 0.2 (0.1-1.2) % Neut # (Auto) 9.51 H (1.56-6.13) K/mm3 Lymph # (Auto) 1.34 (1.18-3.74) K/mm3 [place] # (Auto) 0.77 H (0.24-0.36) K/mm3 Eos # (Auto) 0.06 (0.04-0.36) K/mm3 Baso # (Auto) 0.02 (0.01-0.08) K/mm3 Manual Slide Review Normal smear Sodium 138 (136-145) mEq/L Potassium 3.9 (3.5-5.1) mEq/L Chloride 102 (98-107) mEq/L Carbon Dioxide 26 (21-32) mEq/L Anion Gap 13.9 (5-15) BUN 7 (7-18) mg/dL Creatinine 0.8 (0.55-1.02) mg/dL Est Cr Clr Drug Dosing 67.72 mL/min Estimated GFR (MDRD) > 60 (>60) mL/min BUN/Creatinine Ratio 8.8 L (14-18) Glucose 101 (74-106) mg/dL Calcium 9.1 (8.5-10.1) mg/dL Total Bilirubin 1.3 H (0.2-1.0) mg/dL AST 14 L (15-37) U/L ALT 29 (14-59) U/L Alkaline Phosphatase 122 H (46-116) U/L Total Protein 8.0 (6.4-8.2) g/dl Albumin 3.5 (3.4-5.0) g/dl Globulin 4.5 gm/dL Albumin/Globulin Ratio 0.8 L (1-2) Lipase 57 L (73-393) U/L Urine Color Yellow (Yellow) Urine Appearance Slt cloudy H (Clear) Urine pH 6.0 (5.0-8.0) Ur Specific [place] 1.020 (1.005-1.030) Urine Protein Negative (Negative) Urine Glucose (UA) Negative (Negative) Urine Ketones Negative (Negative) Urine Occult Blood Negative (Negative) Urine Nitrite Negative (Negative) Urine Bilirubin Negative (Negative) Urine Urobilinogen 0.2 (0.2-1.0) Ur Leukocyte Esterase Negative (Negative) Meds: Medications Generic Name Dose Route Start Last Admin Trade Name Freq PRN Reason Stop Dose Admin Sodium Chloride 10 ml 05/30/19 15:36 05/30/19 17:22 Saline Flush FLUSH 10 ml ASDIRECTED PRN Administration Keep Vein Open Discontinued Medications Generic Name Dose Route Start Last Admin Trade Name Freq PRN Reason Stop Dose Admin Diatrizoate Meglum/Diatrizoate Sod 120 ml 05/30/19 16:50 05/30/19 17:22 Gastrografin 37% PO 05/30/19 16:51 120 ml ONETIME ONE Administration Sodium Chloride 1,000 mls @ 1,000 mls/hr 05/30/19 15:37 05/30/19 16:04 Normal Saline IV 05/30/19 16:36 1,000 mls/hr ONETIME ONE Administration Iopamidol 100 ml 05/30/19 16:48 05/30/19 17:22 Isovue-300 (61%) IVPUSH 05/30/19 16:49 100 ml ONETIME ONE Administration Departure - Departure Disposition: Home, Self-Care 01 Clinical Impression: Diverticulitis - Discharge Information Prescriptions: Amoxicillin/Clavulanate K [Augmentin 875-125 MG] 1 tab PO BID #20 tablet Referrals: Tank Ugalde MD [Primary Care Provider] - 1 Week Forms: ED Department Discharge Additional Instructions: Drink plenty of fluids. Take tylenol or motrin as needed for pain. Take the Augmenting 2 times per day for 10 days. Please return if you are worse. Sepsis Event Note - Evaluation Sepsis Screening Result: No Definite Risk - Focused Exam Vital Signs: Vital Signs Temp Pulse Resp BP Pulse Ox 05/30/19 13:29 97.9 F 80 18 133/85 95 Date Exam was Performed: 05/30/19 Time Exam was Performed: 13:51 - My Orders Last 24 Hours: My Active Orders 05/30/19 15:36 Sodium Chloride 0.9% [Saline Flush] 10 ml FLUSH ASDIRECTED PRN Peripheral IV Insertion Adult [OM.PC] Routine 05/30/19 15:37 Peripheral IV Care [RC] . DIRECTED - Assessment/Plan Last 24 Hours: My Active Orders 05/30/19 15:36 Sodium Chloride 0.9% [Saline Flush] 10 ml FLUSH ASDIRECTED PRN Peripheral IV Insertion Adult [OM.PC] Routine 05/30/19 15:37 Peripheral IV Care [RC] . DIRECTED <Shelton Anderson - Last Filed: 05/30/19 18:25> Course - Re-Assessments/Exams Free Text/Narrative Re-Assessment/Exam: 05/30/19 18:02 I examined the patient myself and I agree with Karley's assessment and plan. I ordered labs and an x-ray. Her WBC was elevated at 11.74. Her total bilis is elevated at 1.3. Her alk phos is elevated at 122. Her lipase is low. Her UA shows no UTI. Her x-ray shows no constipation. I am worried she has diverticulitis. I ordered an IV saline lock and a CT of her abdomen and pelvis. 05/30/19 18:[address] shows inflammatory change around the sigmoid colon with bowel wall thickening. Findings most likely represent moderately severe diverticulitis. No other acute finding is seen on CT study of the abdomen and pelvis. I will discharge the patient on some augmentin. Departure - Departure Time of Disposition: 18:30 Condition: Good - Discharge Information *PRESCRIPTION DRUG MONITORING PROGRAM REVIEWED*: Not Applicable *COPY OF PRESCRIPTION DRUG MONITORING REPORT IN PATIENT HERMINIA: Not Applicable Sepsis Event Note - Focused Exam Date Exam was Performed: 05/30/19 Time Exam was Performed: 18:22
--- NOTE | 2019-05-30 14:52 | CR ---
Abdomen: Upright views of the abdomen was obtained. Comparison: Prior abdominal x-ray of 08/05/13. Surgical clips are noted from prior cholecystectomy. Bowel gas pattern is normal. No free air is seen. Bony structures appear within normal limits for the patient's age. Impression: 1. Nothing acute is seen on upright abdominal x-ray. Diagnostic code #2 Study was dictated in [place] Standard Time
[2019-05-30] MEDS ORDERED: Sodium Chloride 0.9% 1,000 ML IV ONE (15:37)
[2019-05-30] MEDS: Sodium Chloride 0.9% 10 ML Syringe FLUSH PRN ×2 (16:04→17:22)
[2019-05-30] MEDS ORDERED: Iopamidol 612 MG/ML 100 ML Bottle IVPUSH ONE (16:48)
[2019-05-30] MEDS ORDERED: Diatrizoate Meglumine/Diatrizoate Sodium 37% 120 ML Bottle PO ONE (16:50)
--- NOTE | 2019-05-30 17:49 | CT ---
CT abdomen and pelvis Technique: Multiple axial sections were obtained from above the dome of the diaphragm inferiorly through the pubic symphysis. Intravenous and oral contrast was utilized. Delayed images were obtained through the bladder. Findings: Diffuse inflammatory change is seen around the sigmoid colon. Diffuse bowel wall thickening is noted within the sigmoid colon. Diverticuli are noted within the sigmoid colon which appears to be be the epicenter for the inflammatory change. Findings most likely represent diverticulitis. Visualized lung bases show nothing acute. Liver contains no focal abnormality. Spleen appears within normal limits. Adrenal glands show no nodule. Pancreas is within normal limits. Surgical clips are seen from prior cholecystectomy. Kidneys show symmetric contrast enhancement without hydronephrosis or mass. Aorta shows no aneurysm. No retroperitoneal adenopathy is seen. Appendix is seen which is normal in size. No pelvic mass or adenopathy is seen. Small cyst is noted within the right ovary believed to be physiologic. Delayed images shows contrast within the left ureter as well as contrast within the bladder. Impression: 1. Inflammatory change around the sigmoid colon with bowel wall thickening. Findings most likely represent moderately severe diverticulitis. 2. No other acute finding is seen on CT study of the abdomen and pelvis. Diagnostic code #3 This report was dictated in [place] Standard Time
[2019-05-30 20:22] VITALS: BP 135/85; PULSE 91
== END 2019-05-30 19:05 | disposition home or self-care (01) ==
LOC: JD.ED 13:14
DX: K57.92 Diverticulitis of intestine, part unspecified, without perforation or abscess without bleeding (principal); G40.909 Epilepsy, unspecified, not intractable, without status epilepticus; I10 Essential (primary) hypertension; M19.90 Unspecified osteoarthritis, unspecified site; E66.9 Obesity, unspecified; Z68.41 Body mass index [BMI] 40.0-44.9, adult; Z79.899 Other long term (current) drug therapy
CPT/HCPCS: 36415; 74018; 74177; 80053; 81003; 83690; 85025; 96360; 99284; J7030; Q9963; Q9967

== ENCOUNTER 2019-07-21 09:08 | Emergency (ER) | payer MEDICAID ==
[2019-07-21] MEDS ORDERED: Sodium Chloride 0.9% 10 ML Syringe FLUSH PRN ×2 (09:42→10:10)
[2019-07-21] MEDS ORDERED: Ondansetron 4 MG/2 ML SDV IVPUSH ONE (09:42)
[2019-07-21] MEDS ORDERED: Sodium Chloride 0.9% 1,000 ML IV STA (09:42)
[2019-07-21] MEDS ORDERED: HYDROmorphone 0.5 MG/0.5 ML Syringe IVPUSH ONE (09:43)
[2019-07-21 09:44] VITALS: BP 147/99; PULSE 70
[2019-07-21] MEDS ORDERED: Iopamidol 612 MG/ML 50 ML SDV IVPUSH ONE (10:10)
[2019-07-21] MEDS ORDERED: Iopamidol 612 MG/ML 100 ML Bottle IVPUSH ONE (10:10)
[2019-07-21] MEDS ORDERED: Diatrizoate Meglumine/Diatrizoate Sodium 37% 120 ML Bottle PO ONE (10:10)
--- NOTE | 2019-07-21 10:44 | EDM.PDOC ---
ED HPI GENERAL MEDICAL PROBLEM - General Chief Complaint: Abdominal Pain Stated Complaint: ABDOMINAL PAIN Time Seen by Provider: 07/21/19 09:38 Source of Information: Reports: Patient History Limitations: Reports: No Limitations - History of Present Illness INITIAL COMMENTS - FREE TEXT/NARRATIVE: The patient presents with abdominal pain and nausea. This started about 1 week ago. She did see her doctor Dr Ugalde and he ordered a CT for next week. She says the pain is a little worse. She has no fever, chills, cough, congestion, runny nose, chest pain, or shortness of breath. She has no gallbladder. She still has her appendix. Two months ago she had diverticulitis. Onset: Gradual Duration: Week(s): (1) Location: Reports: Abdomen Quality: Reports: Sharp Severity: Moderate Improves with: Reports: None Worsens with: Reports: None Associated Symptoms: Reports: Nausea/Vomiting. Denies: Chest Pain, Cough, Fever /Chills, Headaches, Shortness of Breath Abdomen Pain Score (Numeric/FACES): 5 - Related Data Allergies Allergy/AdvReac Type Severity Reaction Status Date / Time No Known Allergies Allergy Verified 07/21/19 09:44 Home Meds: Home Meds levETIRAcetam [Keppra] 1,000 mg PO QAM 08/19/13 [History] levETIRAcetam [Keppra] 1,500 mg PO BEDTIME 08/19/13 [History] Ondansetron [Zofran ODT] 4 mg PO Q8H PRN #10 tab.dis 01/10/19 [Rx] Ciprofloxacin HCl [Cipro] 500 mg PO BID #14 tablet 07/21/19 [Rx] metroNIDAZOLE [Flagyl] 500 mg PO Q8H #21 tab 07/21/19 [Rx] Past Medical History HEENT History: Reports: Impaired Vision Other HEENT History: Wears glasses Cardiovascular History: Reports: Hypertension Respiratory History: Reports: None Gastrointestinal History: Reports: Diverticulosis, Other (See Below) Other Gastrointestinal History: diverticulitis Genitourinary History: Reports: UTI, Recurrent C[employer] BU[employer]ER History: Reports: None Musculoskeletal History: Reports: Arthritis, Other (See Below) Other Musculoskeletal History: "calcification tendonitis." Neurological History: Reports: Headaches, Chronic, Migraines, Seizure Psychiatric History: Reports: None Endocrine/Metabolic History: Reports: Obesity/BMI 30+ Hematologic History: Reports: None Immunologic History: Reports: None Oncologic (Cancer) History: Reports: None Dermatologic History: Reports: Eczema - Infectious Disease History Infectious Disease History: Reports: Chicken Pox, Measles, Mumps - Past Surgical History GI Surgical History: Reports: Cholecystectomy Social & Family History - Family History Family Medical History: Noncontributory - Tobacco Use Smoking Status *Q: Never Smoker Second Hand Smoke Exposure: No - Caffeine Use Caffeine Use: Reports: Soda - Recreational Drug Use Recreational Drug Use: No - Living Situation & Occupation Living situation: Reports: Single Occupation: Unemployed ED ROS GENERAL - Review of Systems Review Of Systems: See Below Constitutional: Reports: No Symptoms HEENT: Reports: No Symptoms Respiratory: Reports: No Symptoms Cardiovascular: Reports: No Symptoms Endocrine: Reports: No Symptoms GI/Abdominal: Reports: Abdominal Pain, Nausea. Denies: Diarrhea, Vomiting : Reports: No Symptoms Musculoskeletal: Reports: No Symptoms ED EXAM, GI/ABD - Physical Exam Exam: See Below Exam Limited By: No Limitations General Appearance: Alert, No Apparent Distress Ears: Normal External Exam Nose: Normal Inspection Head: Atraumatic, Normocephalic Neck: Normal Inspection Respiratory/Chest: No Respiratory Distress, Lungs Clear, Normal Breath Sounds Cardiovascular: Regular Rate, Rhythm, No Edema, No Murmur GI/Abdominal Exam: Soft, No Organomegaly, No Mass, Tender (Moderate tenderness to the LLQ) Course - Vital Signs Last Recorded V/S: Last Vital Signs Temp 98.5 F 07/21/19 09:30 Pulse 70 07/21/19 09:30 Resp 18 07/21/19 09:30 BP 147/99 H 07/21/19 09:30 Pulse Ox 97 07/21/19 09:30 - Orders/Labs/Meds Orders: Active Orders 24 hr Category Date Time Status Peripheral IV Care [RC] . DIRECTED Care 07/21/19 09:42 Active Sodium Chloride 0.9% [Saline Flush] Med 07/21/19 09:42 Active 10 ml FLUSH ASDIRECTED PRN Sodium Chloride 0.9% [Saline Flush] Med 07/21/19 10:10 Active 10 ml FLUSH ONETIME PRN ED Antiemetic Medication Reflex [OM.PC] Stat Oth 07/21/19 09:42 Ordered Peripheral IV Insertion Adult [OM.PC] Stat Oth 07/21/19 09:42 Ordered Medication Orders Sodium Chloride (Saline Flush) 10 ml FLUSH ASDIRECTED PRN PRN Reason: Keep Vein Open Last Admin: 07/21/19 10:10 Dose: 10 ml Sodium Chloride (Saline Flush) 10 ml FLUSH ONETIME PRN PRN Reason: IV FLUSH Last Admin: 07/21/19 11:48 Dose: 10 ml Labs: Laboratory Tests 07/21/19 07/21/19 07/21/19 Range/Units 10:08 10:08 10:08 WBC 10.18 H (3.98-10.04) K/mm3 RBC 4.48 (3.98-5.22) M/mm3 Hgb 12.5 (11.2-15.7) gm/dl Hct 38.6 (34.1-44.9) % MCV 86.2 (79.4-94.8) fl MCH 27.9 (25.6-32.2) pg MCHC 32.4 (32.2-35.5) g/dl RDW Std Deviation 41.0 (36.4-46.3) fL Plt Count 381 H (182-369) K/mm3 MPV 10.2 (9.4-12.3) fl Neut % (Auto) 73.8 H (34.0-71.1) % Lymph % (Auto) 18.0 L (19.3-51.7) % [place] % (Auto) 6.4 (4.7-12.5) % Eos % (Auto) 1.2 (0.7-5.8) Baso % (Auto) 0.2 (0.1-1.2) % Neut # (Auto) 7.52 H (1.56-6.13) K/mm3 Lymph # (Auto) 1.83 (1.18-3.74) K/mm3 [place] # (Auto) 0.65 H (0.24-0.36) K/mm3 Eos # (Auto) 0.12 (0.04-0.36) K/mm3 Baso # (Auto) 0.02 (0.01-0.08) K/mm3 Sodium 139 (136-145) mEq/L Potassium 4.4 (3.5-5.1) mEq/L Chloride 104 (98-107) mEq/L Carbon Dioxide 26 (21-32) mEq/L Anion Gap 13.4 (5-15) BUN 9 (7-18) mg/dL Creatinine 0.7 (0.55-1.02) mg/dL Est Cr Clr Drug Dosing 77.39 mL/min Estimated GFR (MDRD) > 60 (>60) mL/min BUN/Creatinine Ratio 12.9 L (14-18) Glucose 109 H (74-106) mg/dL Calcium 8.7 (8.5-10.1) mg/dL Total Bilirubin 0.5 (0.2-1.0) mg/dL AST 19 (15-37) U/L ALT 35 (14-59) U/L Alkaline Phosphatase 118 H (46-116) U/L Total Protein 7.6 (6.4-8.2) g/dl Albumin 3.4 (3.4-5.0) g/dl Globulin 4.2 gm/dL Albumin/Globulin Ratio 0.8 L (1-2) Lipase 107 (73-393) U/L HCG, Qual (NEGATIVE) Urine Color Yellow (Yellow) Urine Appearance Slt cloudy H (Clear) Urine pH 6.5 (5.0-8.0) Ur Specific [place] 1.025 (1.005-1.030) Urine Protein Negative (Negative) Urine Glucose (UA) Negative (Negative) Urine Ketones Negative (Negative) Urine Occult Blood 3+ H (Negative) Urine Nitrite Negative (Negative) Urine Bilirubin Negative (Negative) Urine Urobilinogen 0.2 (0.2-1.0) Ur Leukocyte Esterase 1+ H (Negative) Urine RBC >100 H (0-5) /hpf Urine WBC 5-10 H (0-5) /hpf Ur Squamous Epith Cells 0-5 (0-5) /hpf Urine Bacteria Few (FEW) /hpf Urine Mucus Not seen (FEW) /hpf 07/21/19 Range/Units 10:08 WBC (3.98-10.04) K/mm3 RBC (3.98-5.22) M/mm3 Hgb (11.2-15.7) gm/dl Hct (34.1-44.9) % MCV (79.4-94.8) fl MCH (25.6-32.2) pg MCHC (32.2-35.5) g/dl RDW Std Deviation (36.4-46.3) fL Plt Count (182-369) K/mm3 MPV (9.4-12.3) fl Neut % (Auto) (34.0-71.1) % Lymph % (Auto) (19.3-51.7) % [place] % (Auto) (4.7-12.5) % Eos % (Auto) (0.7-5.8) Baso % (Auto) (0.1-1.2) % Neut # (Auto) (1.56-6.13) K/mm3 Lymph # (Auto) (1.18-3.74) K/mm3 [place] # (Auto) (0.24-0.36) K/mm3 Eos # (Auto) (0.04-0.36) K/mm3 Baso # (Auto) (0.01-0.08) K/mm3 Sodium (136-145) mEq/L Potassium (3.5-5.1) mEq/L Chloride (98-107) mEq/L Carbon Dioxide (21-32) mEq/L Anion Gap (5-15) BUN (7-18) mg/dL Creatinine (0.55-1.02) mg/dL Est Cr Clr Drug Dosing mL/min Estimated GFR (MDRD) (>60) mL/min BUN/Creatinine Ratio (14-18) Glucose (74-106) mg/dL Calcium (8.5-10.1) mg/dL Total Bilirubin (0.2-1.0) mg/dL AST (15-37) U/L ALT (14-59) U/L Alkaline Phosphatase (46-116) U/L Total Protein (6.4-8.2) g/dl Albumin (3.4-5.0) g/dl Globulin gm/dL Albumin/Globulin Ratio (1-2) Lipase (73-393) U/L HCG, Qual Negative (NEGATIVE) Urine Color (Yellow) Urine Appearance (Clear) Urine pH (5.0-8.0) Ur Specific [place] (1.005-1.030) Urine Protein (Negative) Urine Glucose (UA) (Negative) Urine Ketones (Negative) Urine Occult Blood (Negative) Urine Nitrite (Negative) Urine Bilirubin (Negative) Urine Urobilinogen (0.2-1.0) Ur Leukocyte Esterase (Negative) Urine RBC (0-5) /hpf Urine WBC (0-5) /hpf Ur Squamous Epith Cells (0-5) /hpf Urine Bacteria (FEW) /hpf Urine Mucus (FEW) /hpf Meds: Medications Generic Name Dose Route Start Last Admin Trade Name Freq PRN Reason Stop Dose Admin Sodium Chloride 10 ml 07/21/19 09:42 07/21/19 10:10 Saline Flush FLUSH 10 ml ASDIRECTED PRN Administration Keep Vein Open Sodium Chloride 10 ml 07/21/19 10:10 07/21/19 11:48 Saline Flush FLUSH 10 ml ONETIME PRN Administration IV FLUSH Discontinued Medications Generic Name Dose Route Start Last Admin Trade Name Freq PRN Reason Stop Dose Admin Diatrizoate Meglum/Diatrizoate Sod 120 ml 07/21/19 10:10 07/21/19 11:46 Gastrografin 37% PO 07/21/19 10:11 90 ml ONETIME ONE Administration Hydromorphone HCl 0.5 mg 07/21/19 09:43 07/21/19 10:11 Dilaudid IVPUSH 07/21/19 09:44 0.5 mg ONETIME ONE Administration Sodium Chloride 1,000 mls @ 1,000 mls/hr 07/21/19 09:42 07/21/19 10:15 Normal Saline IV 07/21/19 10:41 1,000 mls/hr .BOLUS STA Administration Iopamidol 100 ml 07/21/19 10:10 07/21/19 11:48 Isovue-300 (61%) IVPUSH 07/21/19 10:11 100 ml ONETIME ONE Administration Iopamidol 50 ml 07/21/19 10:10 07/21/19 11:48 Isovue-300 (61%) IVPUSH 07/21/19 10:11 50 ml ONETIME ONE Administration Ondansetron HCl 4 mg 07/21/19 09:42 07/21/19 10:09 Zofran IVPUSH 07/21/19 09:43 4 mg ONETIME ONE Administration - Re-Assessments/Exams Free Text/Narrative Re-Assessment/Exam: 07/21/19 10:43 I ordered an IV NS 1L bolus, zofran 4mg IV, dilaudid 0.5mg IV, labs, UA and a CT of her abdomen and pelvis. 07/21/19 12:26 Her WBC was elevated slightly at 10.18. Her CMP is negative. Her lipase is normal. Her UA shows no UTI. Her CT shows bowel wall thickening with mild surrounding inflammatory change within the sigmoid colon. Uncertain if this represents slowly resolving diverticulitis from prior study or represents recurrence of mild diverticulitis in similar location as previous diverticulitis. No other acute finding is appreciated. She was on augmentin last time. I will put her on come cipro and flagyl. Departure - Departure Time of Disposition: 12:30 Disposition: Home, Self-Care 01 Condition: Good Clinical Impression: Diverticulitis - Discharge Information *PRESCRIPTION DRUG MONITORING PROGRAM REVIEWED*: Not Applicable *COPY OF PRESCRIPTION DRUG MONITORING REPORT IN PATIENT HERMINIA: Not Applicable Prescriptions: Ciprofloxacin HCl [Cipro] 500 mg PO BID #14 tablet metroNIDAZOLE [Flagyl] 500 mg PO Q8H #21 tab Referrals: Tank Ugalde MD [Primary Care Provider] - 1 Week Forms: ED Department Discharge Additional Instructions: Take cipro 2 times per day for 7 days. Take flagyl 3 times per day for 7 days. Drink plenty of fluids. Take motrin or tylenol for pain. Please return if you are worse. Sepsis Event Note - Evaluation Sepsis Screening Result: No Definite Risk - Focused Exam Vital Signs: Vital Signs Temp Pulse Resp BP Pulse Ox 07/21/19 09:30 98.5 F 70 18 147/99 H 97 Date Exam was Performed: 07/21/19 Time Exam was Performed: 12:26 - My Orders Last 24 Hours: My Active Orders 07/21/19 09:42 Peripheral IV Care [RC] . DIRECTED Sodium Chloride 0.9% [Saline Flush] 10 ml FLUSH ASDIRECTED PRN ED Antiemetic Medication Reflex [OM.PC] Stat Peripheral IV Insertion Adult [OM.PC] Stat 07/21/19 10:10 Sodium Chloride 0.9% [Saline Flush] 10 ml FLUSH ONETIME PRN - Assessment/Plan Last 24 Hours: My Active Orders 07/21/19 09:42 Peripheral IV Care [RC] . DIRECTED Sodium Chloride 0.9% [Saline Flush] 10 ml FLUSH ASDIRECTED PRN ED Antiemetic Medication Reflex [OM.PC] Stat Peripheral IV Insertion Adult [OM.PC] Stat 07/21/19 10:10 Sodium Chloride 0.9% [Saline Flush] 10 ml FLUSH ONETIME PRN
--- NOTE | 2019-07-21 12:07 | CT ---
CT abdomen and pelvis Technique: Multiple axial sections were obtained from above the dome of the diaphragm inferiorly through the pubic symphysis. Intravenous contrast was given. Oral contrast is also seen. Delayed images were obtained through the bladder. Comparison: Prior CT abdomen and pelvis exam of 05/30/19. Findings: Bowel wall thickening is seen within the sigmoid colon with mild surrounding inflammatory change. This is the same area of previous diverticulitis on prior CT exam. Uncertain if findings represent slowly improving diverticulitis from prior study or represent mild recurrence of diverticulitis. Visualized lung bases show nothing acute. Liver contains no focal parenchymal abnormality. Spleen appears normal. Surgical clips are seen from prior cholecystectomy. Adrenal glands show no nodule. Kidneys show symmetric contrast enhancement without hydronephrosis or mass. Pancreas is within normal limits. Aorta shows no aneurysm. No retroperitoneal adenopathy or mesenteric abnormalities are seen. Appendix is seen which is normal in size. No pelvic mass or adenopathy is seen. No free fluid is appreciated. Delayed images shows contrast within the distal ureters and within the bladder. Bone window settings were reviewed which shows no acute osseous finding. Impression: 1. Bowel wall thickening with mild surrounding inflammatory change within the sigmoid colon. As mentioned above, uncertain if this represents slowly resolving diverticulitis from prior study or represents recurrence of mild diverticulitis in similar location as previous diverticulitis. 2. No other acute finding is appreciated. Diagnostic code #3 This report was dictated in MDT
== END 2019-07-21 12:51 | disposition home or self-care (01) ==
LOC: JD.ED 09:08
DX: K57.32 Diverticulitis of large intestine without perforation or abscess without bleeding (principal); I10 Essential (primary) hypertension; R56.9 Unspecified convulsions; E66.9 Obesity, unspecified; Z68.41 Body mass index [BMI] 40.0-44.9, adult; Z79.899 Other long term (current) drug therapy
CPT/HCPCS: 36415; 74177; 80053; 81001; 83690; 84703; 85025; 96361; 96374; 96375; 99284; J1170; J2405; J7030; Q9963; Q9967; 99283

== ENCOUNTER 2019-09-18 15:39 | Emergency (ER) | payer MEDICAID ==
[2019-09-18 15:49] VITALS: BP 145/96; PULSE 79
[2019-09-18] MEDS ORDERED: Sodium Chloride 0.9% 10 ML Syringe FLUSH PRN (16:19)
--- NOTE | 2019-09-18 16:21 | EDM.PDOC ---
ED HPI GENERAL MEDICAL PROBLEM - General Chief Complaint: Abdominal Pain Stated Complaint: LOW ABDOMINAL PAIN Time Seen by Provider: 09/18/19 16:08 Source of Information: Reports: Patient History Limitations: Reports: No Limitations - History of Present Illness INITIAL COMMENTS - FREE TEXT/NARRATIVE: 44-year-old female presents to the ED with diffuse left panda-abdominal pain starting about 0400 hrs. this morning. She states it is gradually gotten worse as the day is gone on. She believes she did have a normal bowel movement this morning that contain no blood. She has a history of diverticulitis. Last bout was in July of this year. No associated fever or chills. She has not yet eaten today. Only previous surgery has been that of a laparoscopic cholecystectomy. She is just finishing up her last period which lasted 5 days. Denies any genitourinary complaints. Yin this seem to be a colicky component to the pain but she reports now it is constant worse with movement coughing and certain movements. Onset: Today, Sudden Onset Date: 09/18/19 Onset Time: 04:00 Duration: Hour(s): Location: Reports: Abdomen (Left mid and lower abdomen.). Denies: Radiates to Quality: Reports: Ache Severity: Moderate Improves with: Reports: Rest Worsens with: Reports: Other (Coughing deep breathing laughing) Context: Reports: Other (Spontaneous occurrence). Denies: Activity ( and certain movements make it worse.), Exercise, Lifting, Sick Contact, Trauma Associated Symptoms: Reports: Loss of Appetite, Malaise. Denies: Fever/Chills, Nausea/Vomiting, Rash, Seizure, Shortness of Breath, Syncope, Weakness, Other Treatments CRANK HAND: Reports: Other (see below) (None.) Left Lower Abdominal Pain Score (Numeric/FACES): 8 - Related Data Allergies Allergy/AdvReac Type Severity Reaction Status Date / Time No Known Allergies Allergy Verified 09/18/19 15:49 Home Meds: Home Meds levETIRAcetam [Keppra] 1,000 mg PO QAM 08/19/13 [History] levETIRAcetam [Keppra] 1,500 mg PO BEDTIME 08/19/13 [History] Ciprofloxacin HCl [Cipro] 500 mg PO BID #20 tablet 09/18/19 [Rx] Clindamycin HCl 300 mg PO TID #21 capsule 09/18/19 [Rx] Dicyclomine [Bentyl] 20 mg PO Q6H PRN #8 tablet 09/18/19 [Rx] Past Medical History HEENT History: Reports: Impaired Vision Other HEENT History: Wears glasses Cardiovascular History: Reports: Hypertension Respiratory History: Reports: None Gastrointestinal History: Reports: Diverticulosis, Other (See Below) Other Gastrointestinal History: diverticulitis Genitourinary History: Reports: UTI, Recurrent 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 Musculoskeletal History: Reports: Arthritis, Other (See Below) Other Musculoskeletal History: "calcification tendonitis." Neurological History: Reports: Headaches, Chronic, Migraines, Seizure Psychiatric History: Reports: None Endocrine/Metabolic History: Reports: Obesity/BMI 30+ Hematologic History: Reports: None Immunologic History: Reports: None Oncologic (Cancer) History: Reports: None Dermatologic History: Reports: Eczema - Infectious Disease History Infectious Disease History: Reports: Chicken Pox, Measles, Mumps - Past Surgical History Head Surgeries/Procedures: Reports: None GI Surgical History: Reports: Cholecystectomy Social & Family History - Family History Family Medical History: Noncontributory - Tobacco Use Smoking Status *Q: Never Smoker - Caffeine Use Caffeine Use: Reports: Soda - Recreational Drug Use Recreational Drug Use: No - Living Situation & Occupation Living situation: Reports: Single Occupation: Disabled ED ROS GENERAL - Review of Systems Review Of Systems: See Below Constitutional: Reports: Decreased Appetite. Denies: Fever, Chills, Malaise, Weakness, Fatigue, Weight Loss HEENT: Reports: Glasses Respiratory: Reports: No Symptoms Cardiovascular: Reports: No Symptoms Endocrine: Reports: No Symptoms GI/Abdominal: Reports: Abdominal Pain (See history of present illness.). Denies : Constipation, Diarrhea, Flatus, Hematemesis, Hematochezia, Nausea, Stool Incontinence, Vomiting : Reports: No Symptoms, Other (Just finishing up her..) Musculoskeletal: Reports: No Symptoms Skin: Reports: No Symptoms Neurological: Reports: Dizziness, Other. Denies: Headache, Numbness, Paresthesia (Recent seizures. She is on antiseizure medication.), Pre-Existing Deficit, Seizure, Syncope, Tingling, Tremors, Trouble Speaking, Difficulty Walking, Weakness Psychiatric: Reports: No Symptoms Hematologic/Lymphatic: Reports: No Symptoms Immunologic: Reports: No Symptoms ED EXAM, GI/ABD - Physical Exam Exam: See Below Exam Limited By: No Limitations General Appearance: Alert, WD/WN, No Apparent Distress, Other (Temperature is 37.1 with a heart rate of 79. Respiratory to 16 with O2 sats of 97% on room air BP is 145/96.) Eyes: Bilateral: Normal Appearance (No scleral icterus or blepharal pallor.) Throat/Mouth: Other Head: Atraumatic, Normocephalic (Tongue is mildly dry and coated) Neck: Normal Inspection, Supple, Non-Tender, Full Range of Motion. No: Lymphadenopathy (L), Lymphadenopathy (R) Respiratory/Chest: No Respiratory Distress, Lungs Clear, Normal Breath Sounds, No Accessory Muscle Use Cardiovascular: Normal Peripheral Pulses, Regular Rate, Rhythm, No Edema, No Gallop, No Murmur, No Rub GI/Abdominal Exam: No Organomegaly, No Abnormal Bruit, No Mass, Pelvis Stable, Guarding, Tender (Throughout the distribution of the descending and sigmoid colon.), Abnormal Bowel Sounds (Bowel sounds are fairly quiesced sent in all 4 quadrants.), Other (Scars from laparoscopic cholecystectomy.). No: Rigid, Rebound Back Exam: Normal Inspection, Full Range of Motion. No: CVA Tenderness (L), CVA Tenderness (R) Extremities: Normal Inspection, Normal Range of Motion, Non-Tender Neurological: Alert, Oriented, CN II-XII Intact, Normal Cognition Psychiatric: Normal Affect, Normal Mood Skin Exam: Warm, Dry, Intact, Normal Color, No Rash Course - Vital Signs Last Recorded V/S: Last Vital Signs Temp 37.1 C 09/18/19 15:47 Pulse 79 09/18/19 15:47 Resp 16 09/18/19 15:47 BP 145/96 H 09/18/19 15:47 Pulse Ox 97 09/18/19 15:47 - Orders/Labs/Meds Orders: Active Orders 24 hr Category Date Time Status Peripheral IV Care [RC] . DIRECTED Care 09/18/19 16:19 Active Sodium Chloride 0.9% [Saline Flush] Med 09/18/19 16:19 Active 10 ml FLUSH ASDIRECTED PRN Peripheral IV Insertion Adult [OM.PC] Stat Oth 09/18/19 16:19 Ordered Medication Orders Sodium Chloride (Saline Flush) 10 ml FLUSH ASDIRECTED PRN PRN Reason: Keep Vein Open Last Admin: 09/18/19 16:58 Dose: 10 ml Labs: Laboratory Tests 09/18/19 09/18/19 09/18/19 Range/Units 15:50 15:50 15:58 WBC 12.68 H (3.98-10.04) K/mm3 RBC 4.75 (3.98-5.22) M/mm3 Hgb 13.1 (11.2-15.7) gm/dl Hct 40.3 (34.1-44.9) % MCV 84.8 (79.4-94.8) fl MCH 27.6 (25.6-32.2) pg MCHC 32.5 (32.2-35.5) g/dl RDW Std Deviation 41.8 (36.4-46.3) fL Plt Count 372 H (182-369) K/mm3 MPV 10.4 (9.4-12.3) fl Neut % (Auto) 81.3 H (34.0-71.1) % Lymph % (Auto) 12.2 L (19.3-51.7) % Pendleton % (Auto) 5.6 (4.7-12.5) % Eos % (Auto) 0.5 L (0.7-5.8) Baso % (Auto) 0.2 (0.1-1.2) % Neut # (Auto) 10.31 H (1.56-6.13) K/mm3 Lymph # (Auto) 1.55 (1.18-3.74) K/mm3 Pend[place] # (Auto) 0.71 H (0.24-0.36) K/mm3 Eos # (Auto) 0.06 (0.04-0.36) K/mm3 Baso # (Auto) 0.02 (0.01-0.08) K/mm3 Manual Slide Review Normal smear Sodium (136-145) mEq/L Potassium (3.5-5.1) mEq/L Chloride (98-107) mEq/L Carbon Dioxide (21-32) mEq/L Anion Gap (5-15) BUN (7-18) mg/dL Creatinine (0.55-1.02) mg/dL Est Cr Clr Drug Dosing mL/min Estimated GFR (MDRD) (>60) mL/min BUN/Creatinine Ratio (14-18) Glucose (74-106) mg/dL Calcium (8.5-10.1) mg/dL Total Bilirubin (0.2-1.0) mg/dL AST (15-37) U/L ALT (14-59) U/L Alkaline Phosphatase (46-116) U/L C-Reactive Protein (<1.0) mg/dL Total Protein (6.4-8.2) g/dl Albumin (3.4-5.0) g/dl Globulin gm/dL Albumin/Globulin Ratio (1-2) HCG, Qual (NEGATIVE) Urine Color Cancelled Yellow Urine Appearance Cancelled Clear Urine pH Cancelled 6.0 Ur Specific Dalton Cancelled > or = 1.030 Urine Protein Cancelled Negative Urine Glucose (UA) Cancelled Negative Urine Ketones Cancelled Negative Urine Occult Blood Cancelled 1+ H Urine Nitrite Cancelled Negative Urine Bilirubin Cancelled Negative Urine Urobilinogen Cancelled 0.2 Ur Leukocyte Esterase Cancelled Negative U Hyaline Cast (Auto) Cancelled Urine RBC Cancelled 0-5 Urine WBC Cancelled 0-5 Urine WBC Clumps Cancelled Ur Epithelial Cells Cancelled Ur Squamous Epith Cells Cancelled 5-10 H Ur Transition Epith Cell Cancelled Ur Renal Epithelial Cell Cancelled Bison Biurate Crystals Cancelled Calcium Carbonate Cryst Cancelled Calcium Phosphate Cryst Cancelled Calcium Oxalate Crystal Cancelled Leucine Crystals Cancelled Cystine Crystals Cancelled Uric Acid Crystals Cancelled Triple Phos Crystals Cancelled Sodium Urate Crystals Cancelled Tyrosine Crystals Cancelled Other Crystals Cancelled Amorphous Sediment Cancelled Urine Bacteria Cancelled Rare Epithelial Casts Cancelled Fatty Casts Cancelled Fine Granular Casts Cancelled Coarse Granular Casts Cancelled Waxy Casts Cancelled Broad Casts Cancelled RBC Casts Cancelled WBC Casts Cancelled Urine Mucus Cancelled Few Urine Other Cancelled Urine Trichomonas Cancelled Urine Yeast Cancelled Ur Yeast w Hyphae Cancelled Urine Yeast (Budding) Cancelled Ur Oval Fat Bodies Cancelled Urinalysis Comment Cancelled 09/18/19 09/18/19 Range/Units 15:58 15:58 WBC (3.98-10.04) K/mm3 RBC (3.98-5.22) M/mm3 Hgb (11.2-15.7) gm/dl Hct (34.1-44.9) % MCV (79.4-94.8) fl MCH (25.6-32.2) pg MCHC (32.2-35.5) g/dl RDW Std Deviation (36.4-46.3) fL Plt Count (182-369) K/mm3 MPV (9.4-12.3) fl Neut % (Auto) (34.0-71.1) % Lymph % (Auto) (19.3-51.7) % Pendleton % (Auto) (4.7-12.5) % Eos % (Auto) (0.7-5.8) Baso % (Auto) (0.1-1.2) % Neut # (Auto) (1.56-6.13) K/mm3 Lymph # (Auto) (1.18-3.74) K/mm3 P[place]leton # (Auto) (0.24-0.36) K/mm3 Eos # (Auto) (0.04-0.36) K/mm3 Baso # (Auto) (0.01-0.08) K/mm3 Manual Slide Review Sodium 140 (136-145) mEq/L Potassium 3.6 (3.5-5.1) mEq/L Chloride 102 (98-107) mEq/L Carbon Dioxide 27 (21-32) mEq/L Anion Gap 14.6 (5-15) BUN 9 (7-18) mg/dL Creatinine 0.8 (0.55-1.02) mg/dL Est Cr Clr Drug Dosing 67.72 mL/min Estimated GFR (MDRD) > 60 (>60) mL/min BUN/Creatinine Ratio 11.3 L (14-18) Glucose 108 H (74-106) mg/dL Calcium 8.8 (8.5-10.1) mg/dL Total Bilirubin 1.0 (0.2-1.0) mg/dL AST 17 (15-37) U/L ALT 25 (14-59) U/L Alkaline Phosphatase 111 (46-116) U/L C-Reactive Protein 3.0 H* (<1.0) mg/dL Total Protein 8.0 (6.4-8.2) g/dl Albumin 3.7 (3.4-5.0) g/dl Globulin 4.3 gm/dL Albumin/Globulin Ratio 0.9 L (1-2) HCG, Qual Negative (NEGATIVE) Urine Color Urine Appearance Urine pH Ur Specific Dalton Urine Protein Urine Glucose (UA) Urine Ketones Urine Occult Blood Urine Nitrite Urine Bilirubin Urine Urobilinogen Ur Leukocyte Esterase U Hyaline Cast (Auto) Urine RBC Urine WBC Urine WBC Clumps Ur Epithelial Cells Ur Squamous Epith Cells Ur Transition Epith Cell Ur Renal Epithelial Cell Bison Biurate Crystals Calcium Carbonate Cryst Calcium Phosphate Cryst Calcium Oxalate Crystal Leucine Crystals Cystine Crystals Uric Acid Crystals Triple Phos Crystals Sodium Urate Crystals Tyrosine Crystals Other Crystals Amorphous Sediment Urine Bacteria Epithelial Casts Fatty Casts Fine Granular Casts Coarse Granular Casts Waxy Casts Broad Casts RBC Casts WBC Casts Urine Mucus Urine Other Urine Trichomonas Urine Yeast Ur Yeast w Hyphae Urine Yeast (Budding) Ur Oval Fat Bodies Urinalysis Comment Meds: Medications Generic Name Dose Route Start Last Admin Trade Name Freq PRN Reason Stop Dose Admin Sodium Chloride 10 ml 09/18/19 16:19 09/18/19 16:58 Saline Flush FLUSH 10 ml ASDIRECTED PRN Administration Keep Vein Open - Radiology Interpretation Free Text/Narrative:: 44-year-old female presents to the ED for evaluation of diffuse left lower quadrant abdominal pain that started about 4:00 this morning. Seems to be gradually getting worse as the day is gone on. She is reported history of 3 or 4 bouts of diverticulitis in the past with the last attack being in July of this year. At present she has no associated fever or chills. She does have a problem with intermittent constipation but did have a normal bowel move this morning without blood. She has no associated fever or chills. No genitourinary complaints. On examination she is very tender throughout the distribution of the lower descending and sigmoid colon with guarding. Bowel sounds are fairly quiesced sent throughout the abdomen on exam. Plan KUB. Routine labs to include a manual CBC CMP CRP and a lipase. Urinalysis to be collected. - Re-Assessments/Exams Free Text/Narrative Re-Assessment/Exam: 09/18/19 17:27 White count is elevated at 12.68. Auto differential shows 81% neutrophils. Hemoglobin is 13.1 with hematocrit of 40.3. Platelet count is 372 ,000. No bands cells on the smear. Chemistry shows a sodium 140 with a potassium of 3.6. Chloride is 102 with a bicarb of 27. Anion gap is 14.6. BUN is 9 with a creatinine of 0.8 and GFR greater than 60. Leukos 108 with a calcium of 8.8. Liver function is normal C-reactive protein is mildly elevated at 3.0. Total protein is 8.0 with an albumin fraction of 3.7. hCG was negative. The urinalysis shows 1+ occult blood negative leukocyte esterase. 5- 10 squamous epithelial cells on the slide. He will be reveals increased stool at the hepatic flexure and parts of the transverse colon. However the descending colon and rectal vault are empty of stool. No signs of bowel obstruction no free air. 09/18/19 17:32 discussed the findings with the patient. She is having quite a bit of gas pains. He really did not want anything for pain however. She is feeling nauseated from the intensity of the pain. We will give her Zofran 4 mg IV. Plan will be to discharge her on Bentyl 20 mg by mouth every 6 hours on a as needed basis for pain. She will be started on Cipro 500 twice daily for 10 days and clindamycin 300 mg 3 times daily for 7 days. She cannot tolerate Flagyl. Expect gradual improvement over the next 3 days. If not she needs to return to medical care. Departure - Departure Time of Disposition: 17:33 Disposition: Home, Self-Care 01 Condition: Fair Clinical Impression: Abdominal pain Qualifiers: Abdominal location: left lower quadrant Qualified Code(s): R10.32 - Left lower quadrant pain Diverticulitis large intestine Qualifiers: Diverticulitis bleeding: without bleeding Diverticulitis complication: without perforation or abscess Qualified Code(s): K57.32 - Diverticulitis of large intestine without perforation or abscess without bleeding - Discharge Information *PRESCRIPTION DRUG MONITORING PROGRAM REVIEWED*: Not Applicable *COPY OF PRESCRIPTION DRUG MONITORING REPORT IN PATIENT HERMINIA: Not Applicable Prescriptions: Ciprofloxacin HCl [Cipro] 500 mg PO BID #20 tablet Clindamycin HCl 300 mg PO TID #21 capsule Dicyclomine [Bentyl] 20 mg PO Q6H PRN #8 tablet PRN Reason: Abdominal cramps/diarrhea Instructions: Diverticulitis, [id number] Referrals: Tank Ugalde MD [Primary Care Provider] - Forms: ED Department Discharge Additional Instructions: Evaluation in the emergency room today in regards to sudden onset of development of left lower quadrant nominal pain. As you stated it feels like the diverticulitis that you have had 3 or 4 times in the past. Bowel movements have been normal. No associated fever or chills as of yet. X-ray of the abdomen reveals some increased stool in the right hemicolon along the liver but the left side is empty. Lab markers are positive for elevated white blood cell count and signs of infection. Urinalysis was normal. It therefore does appear clinically that you have diverticulitis recurrence. Treatment is to be antibiotic Cipro 500 mg twice daily for the next 10 days. Use clindamycin 300 mg 3 times daily for 7 days to also clear up diverticulitis. May use Bentyl 20 mg tablet every 6 hours as needed for relief of abdominal cramping pain. Of course it is okay to use Motrin or Tylenol for pain relief as well. Expect gradual improvement over the next 3 days and marked improvement over the next 5 days. You would need to return to medical care if you develop high fever chills or worsening of abdominal pain in the next 72 hours instead of getting better. At some point time you need follow-up with colonoscopy or repeat CT of the abdomen to discern how severe the diverticulitis is since you are young and you have had recurrent bouts in the last year and a half. This may mean that you have to have a section of your bowel removed to prevent recurrence of disease. Suggest follow-up with your personal care physician in this regard. Sepsis Event Note - Evaluation Sepsis Screening Result: No Definite Risk - Focused Exam Vital Signs: Vital Signs Temp Pulse Resp BP Pulse Ox 09/18/19 15:47 37.1 C 79 16 145/96 H 97 Date Exam was Performed: 09/18/19 Time Exam was Performed: 17:48 - My Orders Last 24 Hours: My Active Orders 09/18/19 16:19 Peripheral IV Care [RC] . DIRECTED Sodium Chloride 0.9% [Saline Flush] 10 ml FLUSH ASDIRECTED PRN Peripheral IV Insertion Adult [OM.PC] Stat - Assessment/Plan Last 24 Hours: My Active Orders 09/18/19 16:19 Peripheral IV Care [RC] . DIRECTED Sodium Chloride 0.9% [Saline Flush] 10 ml FLUSH ASDIRECTED PRN Peripheral IV Insertion Adult [OM.PC] Stat
--- NOTE | 2019-09-18 16:37 | CR ---
Abdomen: Supine view of the abdomen was obtained. Comparison: Prior abdominal x-ray of 05/30/19. Bowel gas pattern appears normal. Surgical clips are seen from prior cholecystectomy. Bony structures are unremarkable. Impression: 1. Nothing acute is appreciated on supine abdominal x-ray. Diagnostic code #1 This report was dictated in MDT
[2019-09-18] MEDS ORDERED: Ondansetron 4 MG/2 ML SDV IVPUSH ONE (17:53)
== END 2019-09-18 17:58 | disposition home or self-care (01) ==
LOC: JD.ED 15:39
DX: K57.32 Diverticulitis of large intestine without perforation or abscess without bleeding (principal); I10 Essential (primary) hypertension; R56.9 Unspecified convulsions; Z79.899 Other long term (current) drug therapy; E66.9 Obesity, unspecified; Z68.42 Body mass index [BMI] 45.0-49.9, adult
CPT/HCPCS: 36415; 74018; 80053; 81001; 84703; 85025; 86140; 96374; 99284; J2405; 99283

== ENCOUNTER 2019-09-24 14:49 | Emergency (ER) | payer MEDICAID ==
--- NOTE | 2019-09-24 15:09 | EDM.PDOC ---
ED HPI GENERAL MEDICAL PROBLEM - General Chief Complaint: Abdominal Pain Stated Complaint: LOW ABD PAIN Time Seen by Provider: 09/24/19 15:09 Source of Information: Reports: Patient History Limitations: Reports: No Limitations - History of Present Illness INITIAL COMMENTS - FREE TEXT/NARRATIVE: 44-year-old female presents to the ED with persistent left mid lower abdominal pain. She was seen on 17 September by me and diagnosis was suspect recurrent diverticulitis. This is was confirmed on September [address] Ugalde with CT scan. Had a scheduled appointment with him at that time. It usually takes at least 3 days for the antibiotics to become effective and the pain does start to ease up. Her antibiotics were changed at that time and she still having discomfort and now having diarrhea. She was previously placed on Levaquin 500 twice daily for 10 days and clindamycin 300 mg 3 times daily for 7 days. Currently on Augmentin 875/125mg tabs .She has no fever or chills. She reports her appetite is not all that great. Having about 3 loose stools per day. Being intermittent lower abdominal cramps that spread across to the right lower quadrant of the abdomen. These seem to be worse if she tries to eat solids. Onset Date: 09/16/19 Duration: Day(s):, Waxing/Waning Location: Reports: Abdomen Quality: Reports: Ache (Left lower quadrant abdomen radiating across to the right lower quadrant of the abdomen.), Sharp (Constant mild pain that is worse with deep pushing on the area), Stabbing Severity: Moderate (with occasional colicky component.) Improves with: Reports: None Worsens with: Reports: Eating (Is to make it worse.) Context: Denies: Activity, Exercise, Lifting, Sick Contact, Trauma, Other Associated Symptoms: Reports: Loss of Appetite. 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: Other (see below) Left Lower Abdominal Pain Score (Numeric/FACES): 2 - Related Data Allergies Allergy/AdvReac Type Severity Reaction Status Date / Time No Known Allergies Allergy Verified 09/24/19 15:06 Home Meds: Home Meds levETIRAcetam [Keppra] 1,000 mg PO QAM 08/19/13 [History] levETIRAcetam [Keppra] 1,500 mg PO BEDTIME 08/19/13 [History] Dicyclomine [Bentyl] 20 mg PO Q6H PRN #8 tablet 09/18/19 [Rx] Amoxicillin/Potassium Clav [Augmentin 875-125 Tablet] 1 tab PO BID 09/24/19 [ History] Past Medical History HEENT History: Reports: Impaired Vision Other HEENT History: Wears glasses Cardiovascular History: Reports: Hypertension Respiratory History: Reports: None Gastrointestinal History: Reports: Diverticulosis, Other (See Below) Other Gastrointestinal History: diverticulitis Genitourinary History: Reports: UTI, Recurrent 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 Musculoskeletal History: Reports: Arthritis, Other (See Below) Other Musculoskeletal History: "calcification tendonitis." Neurological History: Reports: Headaches, Chronic, Migraines, Seizure Psychiatric History: Reports: None Endocrine/Metabolic History: Reports: Obesity/BMI 30+ Hematologic History: Reports: None Immunologic History: Reports: None Oncologic (Cancer) History: Reports: None Dermatologic History: Reports: Eczema - Infectious Disease History Infectious Disease History: Reports: Chicken Pox, Measles, Mumps - Past Surgical History Head Surgeries/Procedures: Reports: None GI Surgical History: Reports: Cholecystectomy Social & Family History - Family History Family Medical History: Noncontributory - Tobacco Use Smoking Status *Q: Never Smoker - Caffeine Use Caffeine Use: Reports: Soda, Tea - Recreational Drug Use Recreational Drug Use: No - Living Situation & Occupation Living situation: Reports: Single Occupation: Disabled ED [facility] GENERAL - Review of Systems Review Of Systems: See Below Constitutional: Reports: Fatigue, Decreased Appetite. Denies: Fever, Chills, Malaise, Weakness, Weight Loss HEENT: Reports: Glasses Respiratory: Reports: No Symptoms Cardiovascular: Reports: No Symptoms Endocrine: Reports: No Symptoms GI/Abdominal: Reports: Abdominal Pain, Diarrhea (See history of present illness) , Decreased Appetite ( loose stools 3 times daily). Denies: Hematemesis, Hematochezia, Melena, Stool Incontinence : Reports: No Symptoms Musculoskeletal: Reports: No Symptoms Skin: Reports: No Symptoms Neurological: Reports: Seizure Psychiatric: Reports: No Symptoms Hematologic/Lymphatic: Reports: No Symptoms Immunologic: Reports: No Symptoms ED EXAM, GI/ABD - Physical Exam Exam: See Below Exam Limited By: No Limitations General Appearance: Alert, WD/WN, No Apparent Distress, Other (Temperature is 36.9 with a heart rate of 90 and sinus. Respiratory is 18 with a pulse ox of 96 %.) Eyes: Bilateral: Normal Appearance (No blepharal pallor or scleral icterus.) Throat/Mouth: Normal Inspection, Normal Lips, Other Respiratory/Chest: No Respiratory Distress, Lungs Clear, Normal Breath Sounds, No Accessory Muscle Use (Is moist), Chest Non-Tender Cardiovascular: Normal Peripheral Pulses, Regular Rate, Rhythm, No Edema, No Gallop, No Murmur, No Rub GI/Abdominal Exam: Tender (Very mildly tender and localized to one spot in the mid left lateral abdomen over the distribution of the descending colon.), Abnormal Bowel Sounds (Bowel sounds are slightly hyperactive in all 4 quadrants. ), Other (No peritoneal signs.). No: No Distention, Guarding, Rigid, Rebound Back Exam: Normal Inspection, Full Range of Motion. No: CVA Tenderness (L), CVA Tenderness (R) Extremities: Normal Inspection, Normal Range of Motion, Non-Tender Neurological: Alert, Oriented, CN II-XII Intact, Normal Cognition, Normal Gait, Sensory/Motor Deficit Psychiatric: Normal Affect Skin Exam: Warm, Dry, Intact, Normal Color, No Rash Course - Vital Signs Last Recorded V/S: Last Vital Signs Temp 36.9 C 09/24/19 15:01 Pulse 83 09/24/19 17:00 Resp 18 09/24/19 17:00 BP 139/98 H 09/24/19 17:00 Pulse Ox 95 09/24/19 17:00 - Orders/Labs/Meds Labs: Laboratory Tests 09/24/19 09/24/19 Range/Units 15:40 15:40 WBC 11.10 H (3.98-10.04) K/mm3 RBC 4.34 (3.98-5.22) M/mm3 Hgb 11.9 (11.2-15.7) gm/dl Hct 36.8 (34.1-44.9) % MCV 84.8 (79.4-94.8) fl MCH 27.4 (25.6-32.2) pg MCHC 32.3 (32.2-35.5) g/dl RDW Std Deviation 40.7 (36.4-46.3) fL Plt Count 412 H (182-369) K/mm3 MPV 10.0 (9.4-12.3) fl Neutrophils % (Manual) 83 H (40-60) % Band Neutrophils % 0 (0-10) % Lymphocytes % (Manual) 11 L (20-40) % Atypical Lymphs % 0 % Monocytes % (Manual) 4 (2-10) % Eosinophils % (Manual) 2 (0.7-5.8) % Basophils % (Manual) 0 L (0.1-1.2) Platelet Estimate Increased RBC Morph Comment Normal C-Reactive Protein 8.3 H* (<1.0) mg/dL Meds: Medications Discontinued Medications Generic Name Dose Route Start Last Admin Trade Name Freq PRN Reason Stop Dose Admin Dicyclomine HCl 20 mg 09/24/19 15:16 09/24/19 15:36 Bentyl PO 09/24/19 15:17 20 mg ONETIME ONE Administration - Radiology Interpretation Free Text/Narrative:: 44-year-old female presents to the ED for reevaluation of left lower quadrant left mid abdominal pain that is now radiating across to the right lower quadrant. I had seen her on September 17 after a 2-day history of gradually worsening left lower quadrant abdominal pain and she has a history of diverticulitis. Lab work revealed a mildly elevated white count with left shift and a mildly elevated CRP at 3.1. Suspect diagnosis was diverticulitis as her pain was well localized to the left lower colon. She was treated with clindamycin 300 mg 3 times daily for 7 days and Levaquin 500 mg twice daily for 10 days. She followed up with Dr. Ugalde in the clinic 3 days later as she had an appointment at that time. She is complaining that she was still having pain in the left lower quadrant of the abdomen which would not be on an expected since it takes about 3 days for the antibiotics become effective and start to relieve the discomfort. Apparently her lab work done at that time revealed a lower white count and a CT of the abdomen did confirm a diagnosis of diverticulitis. There was no abscess. Subsequently her antibiotics were changed to Augmentin 8 7 5/125 mg twice daily and now she is developed some loose stools 3 or 4 times daily with increased colicky component pain rating across to the right lower quadrant of the abdomen. Examination of the abdomen shows well localized pain to the mid left colon at the junction of the descending sigmoid colon clinically. There is no peritoneal signs. And a KUB will be done to make sure there is no free air. Repeat white count to be done and a CRP. Given Bentyl 20 mg p.o. at this time - Re-Assessments/Exams Free Text/Narrative Re-Assessment/Exam: 09/24/19 16:00 Count is 11.10. Differential pending. Hemoglobin is 11.9 with hematocrit of 36.8. Platelet count slightly elevated 412,000. 09/24/19 16:17 White Count is 11.10 with 83% neutrophils and no band cells reported. Hemoglobin is 11.9 with hematocrit of 36.8. Platelet count is elevated at 412,000. C-reactive protein is elevated at 8.3. It was previously 3.0 suggesting the infection is not coming under good control bleed due to an underlying anaerobe infection as well. Difficult to manage in terms that she is at high risk of developing C. difficile enteritis after being on so many different antibiotics. She is intolerant to Flagyl as it causes intractable nausea and vomiting. Therefore I made the decision to return her to the clindamycin 300 mg 3 times daily for 4 more days and the Levaquin 500 mg once daily for another 5 days to clear up infection. Continue Bentyl 20 mg every 6 hours as necessary for spastic pain relief. She will be following up with Dr. Ugalde within the next 10 days as we had discussed the possibility of having a lower GI endoscopy performed to see how extensive her diverticular disease is and whether she would benefit from partial colon resection since she seems to be getting so many recurrent infections in this area. Departure - Departure Time of Disposition: 16:30 Disposition: Home, Self-Care 01 Condition: Fair Clinical Impression: Diverticulitis large intestine Qualifiers: Diverticulitis bleeding: without bleeding Diverticulitis complication: without perforation or abscess Qualified Code(s): K57.32 - Diverticulitis of large intestine without perforation or abscess without bleeding - Discharge Information *PRESCRIPTION DRUG MONITORING PROGRAM REVIEWED*: Not Applicable *COPY OF PRESCRIPTION DRUG MONITORING REPORT IN PATIENT HERMINIA: Not Applicable Instructions: Diverticulitis, [id number] Referrals: Tank Ugalde MD [Primary Care Provider] - Forms: ED Department Discharge Additional Instructions: Evaluation in the emergency room today in regards to persistent pain left hemiabdomen where we had diagnosed diverticulitis 6 days ago. History of recurrent diverticulitis. Apparently diverticulitis was proven by CT scan of the colon on with Dr. Bang September 20. However you are finding you are getting increasing abdominal pain with loose stools 3 or 4 times daily on the current Augmentin therapy and the pain is not getting better. Work-up reveals an elevation of your white count up to 11.1 and an elevation of the CRP at 8.3 suggesting the infection is not coming under good control with current antibiotic therapy. Since you already have the antibiotics I am going to suggest she discontinue the Augmentin and return to clindamycin 300 mg 3 times daily to kill anaerobic infection for the next 4 days and the Levaquin 500 mg once daily for another 6 days or what ever days you have left. Gradual improvement over the next 3 days. The back is that changing antibiotics places you at high risk of developing antibiotic induced colitis. This would mean you would develop significant diarrhea such as 10-14 loose stools per day which would demand immediate follow-up with either Dr. Ugalde or return to the ED. Continue use Bentyl 20 mg every 6 hours necessary for relief of strong cramping abdominal pain. Sepsis Event Note (ED) - Evaluation Sepsis Screening Result: No Definite Risk - Focused Exam Vital Signs: Vital Signs Temp Pulse Resp BP Pulse Ox 09/24/19 17:00 83 18 139/98 H 95 09/24/19 15:01 36.9 C 90 18 95
[2019-09-24] MEDS ORDERED: Dicyclomine 10 MG Cap PO ONE (15:16)
--- NOTE | 2019-09-24 15:36 | CR ---
Abdomen: Upright view of the abdomen was obtained. Comparison: Prior abdominal x-ray of 09/18/[address] abdomen and pelvis exam of 09/21/19. Surgical clips are seen from previous cholecystectomy. Bowel gas pattern appears normal. No free air is seen. Bony structures appear within normal limits for the patient's age. Impression: 1. Nothing acute is appreciated on upright abdominal x-ray. Diagnostic code #2 Study was dictated in MDT
[2019-09-24 17:28] VITALS: BP 139/98; PULSE 83
== END 2019-09-24 17:00 | disposition home or self-care (01) ==
LOC: JD.ED 14:49
DX: K57.32 Diverticulitis of large intestine without perforation or abscess without bleeding (principal); I10 Essential (primary) hypertension; E66.9 Obesity, unspecified; Z68.42 Body mass index [BMI] 45.0-49.9, adult
CPT/HCPCS: 36415; 74018; 85007; 85027; 86140; 99284; A9270; 99283

== ENCOUNTER 2019-10-16 16:17 | Emergency (ER) | payer MEDICAID ==
[2019-10-16 16:28] VITALS: BP 103/77; PULSE 71
[2019-10-16] MEDS ORDERED: Sodium Chloride 0.9% 10 ML Syringe FLUSH PRN ×2 (16:32→17:51)
[2019-10-16] MEDS ORDERED: Sodium Chloride 0.9% 1,000 ML IV ONE (16:32)
--- NOTE | 2019-10-16 16:34 | EDM.PDOC ---
ED HPI GENERAL MEDICAL PROBLEM - General Chief Complaint: General Stated Complaint: DIZZY AND HOT FLASHES Time Seen by Provider: 10/16/19 16:31 Source of Information: Reports: Patient History Limitations: Reports: No Limitations - History of Present Illness INITIAL COMMENTS - FREE TEXT/NARRATIVE: Patient is an unfortunate 44-year-old morbidly obese female who presents emergency department today with complaint of dizziness and lightheadedness and feeling hot all over. The patient reports that she was at the chiropractor and the chiropractor was manipulating her neck when she started having symptoms. She reports that she started having numbness and hotness on the right side of her body she did not suffer any visual disturbance has no hemiplegia at this time denies any increase in neck pain she reports that she had sat down for a little while and the symptoms improved so he went to manipulate her neck again the symptoms return so they became concerned and were instructed to come to the emergency department for evaluation - Related Data Allergies Allergy/AdvReac Type Severity Reaction Status Date / Time No Known Allergies Allergy Verified 10/16/19 16:28 Home Meds: Home Meds levETIRAcetam [Keppra] 1,000 mg PO QAM 08/19/13 [History] levETIRAcetam [Keppra] 1,500 mg PO BEDTIME 08/19/13 [History] Dicyclomine [Bentyl] 20 mg PO Q6H PRN #8 tablet 09/18/19 [Rx] Amoxicillin/Potassium Clav [Augmentin 875-125 Tablet] 1 tab PO BID 09/24/19 [History] Past Medical History HEENT History: Reports: Impaired Vision Other HEENT History: Wears glasses Cardiovascular History: Reports: Hypertension Respiratory History: Reports: None Gastrointestinal History: Reports: Diverticulosis, Other (See Below) Other Gastrointestinal History: diverticulitis Genitourinary History: Reports: UTI, Recurrent 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 Musculoskeletal History: Reports: Arthritis, Other (See Below) Other Musculoskeletal History: "calcification tendonitis." Neurological History: Reports: Headaches, Chronic, Migraines, Seizure Psychiatric History: Reports: None Endocrine/Metabolic History: Reports: Obesity/BMI 30+ Hematologic History: Reports: None Immunologic History: Reports: None Oncologic (Cancer) History: Reports: None Dermatologic History: Reports: Eczema - Infectious Disease History Infectious Disease History: Reports: Chicken Pox, Measles, Mumps - Past Surgical History Head Surgeries/Procedures: Reports: None GI Surgical History: Reports: Cholecystectomy Social & Family History - Family History Family Medical History: Noncontributory - Tobacco Use Smoking Status *Q: Never Smoker - Caffeine Use Caffeine Use: Reports: None - Recreational Drug Use Recreational Drug Use: No - Living Situation & Occupation Living situation: Reports: Single Occupation: Disabled ED ROS GENERAL - Review of Systems Review Of Systems: See Below Constitutional: Denies: Fever, Diaphoresis Neurological: Reports: Dizziness, Numbness, Paresthesia, Tingling ED EXAM, GENERAL - Physical Exam Exam: See Below Exam Limited By: No Limitations General Appearance: Alert, WD/WN, Anxious, Mild Distress, Obese Eye Exam: Bilateral Eye: PERRL Throat/Mouth: Normal Inspection, Normal Lips, Normal Teeth, Normal Gums, Normal Oropharynx, Normal Voice, No Airway Compromise Head: Atraumatic, Normocephalic Neck: Normal Inspection, Supple, Non-Tender, Full Range of Motion Respiratory/Chest: No Respiratory Distress, Lungs Clear, Normal Breath Sounds, No Accessory Muscle Use, Chest Non-Tender Cardiovascular: Normal Peripheral Pulses, Regular Rate, Rhythm, No Edema, No Gallop, No JVD, No Murmur, No Rub GI/Abdominal: Normal Bowel Sounds, Soft, Non-Tender, No Organomegaly, No Distention, No Abnormal Bruit, No Mass Back Exam: Normal Inspection, Full Range of Motion, NT Extremities: Normal Inspection, Normal Range of Motion, Non-Tender, Normal Capillary Refill, No Pedal Edema Neurological: Alert, Oriented, CN II-XII Intact, Normal Cognition, Normal Gait, Normal Reflexes, No Motor/Sensory Deficits Skin Exam: Warm, Dry Course - Vital Signs Text/Narrative:: CTA of neck shows "impression: No stenosis. No acute dissection." Last Recorded V/S: Last Vital Signs Temp 97.5 F 10/16/19 16:24 Pulse 71 10/16/19 16:24 Resp 16 10/16/19 16:24 BP 103/77 10/16/19 16:24 Pulse Ox 96 10/16/19 16:24 - Orders/Labs/Meds Orders: Active Orders 24 hr Category Date Time Status CTA Neck W & W/O Contrast [Ang Neck] [CT] Stat Exams 10/16/19 16:32 Taken Sodium Chloride 0.9% [Normal Saline] 100 ml Med 10/16/19 18:00 Active IV ASDIRECTED Sodium Chloride 0.9% [Saline Flush] Med 10/16/19 16:32 Active 10 ml FLUSH ASDIRECTED PRN Sodium Chloride 0.9% [Saline Flush] Med 10/16/19 17:51 Active 10 ml FLUSH ONETIME PRN Saline Lock Insert [OM.PC] Stat Oth 10/16/19 16:32 Ordered Medication Orders Sodium Chloride (Normal Saline) 100 mls @ 75 mls/hr IV ASDIRECTED ZENA Last Admin: 10/16/19 18:11 Dose: 75 mls/hr Documented by: VIOLETA Sodium Chloride (Saline Flush) 10 ml FLUSH ASDIRECTED PRN PRN Reason: Keep Vein Open Last Admin: 10/16/19 16:48 Dose: 10 ml Documented by: JONAS Sodium Chloride (Saline Flush) 10 ml FLUSH ONETIME PRN PRN Reason: IV FLUSH Last Admin: 10/16/19 18:11 Dose: 10 ml Documented by: VIOLETA Labs: Laboratory Tests 10/16/19 10/16/19 10/16/19 Range/Units 16:45 16:50 16:50 WBC 10.45 H (3.98-10.04) K/mm3 RBC 4.75 (3.98-5.22) M/mm3 Hgb 12.9 (11.2-15.7) gm/dl Hct 40.6 (34.1-44.9) % MCV 85.5 (79.4-94.8) fl MCH 27.2 (25.6-32.2) pg MCHC 31.8 L (32.2-35.5) g/dl RDW Std Deviation 43.7 (36.4-46.3) fL Plt Count 337 D (182-369) K/mm3 MPV 10.4 (9.4-12.3) fl Neut % (Auto) 76.9 H (34.0-71.1) % Lymph % (Auto) 15.6 L (19.3-51.7) % Overton % (Auto) 6.0 (4.7-12.5) % Eos % (Auto) 0.9 (0.7-5.8) Baso % (Auto) 0.4 (0.1-1.2) % Neut # (Auto) 8.04 H (1.56-6.13) K/mm3 Lymph # (Auto) 1.63 (1.18-3.74) K/mm3 Overton # (Auto) 0.63 H (0.24-0.36) K/mm3 Eos # (Auto) 0.09 (0.04-0.36) K/mm3 Baso # (Auto) 0.04 (0.01-0.08) K/mm3 Manual Slide Review Abnormal smear Sodium 139 (136-145) mEq/L Potassium 4.2 (3.5-5.1) mEq/L Chloride 101 (98-107) mEq/L Carbon Dioxide 27 (21-32) mEq/L Anion Gap 15.2 H (5-15) BUN 10 (7-18) mg/dL Creatinine 0.8 (0.55-1.02) mg/dL Est Cr Clr Drug Dosing 67.72 mL/min Estimated GFR (MDRD) > 60 (>60) mL/min BUN/Creatinine Ratio 12.5 L (14-18) Glucose 101 (74-106) mg/dL Calcium 9.1 (8.5-10.1) mg/dL Total Bilirubin 1.1 H (0.2-1.0) mg/dL AST 28 (15-37) U/L ALT 35 (14-59) U/L Alkaline Phosphatase 95 (46-116) U/L Total Protein 8.3 H (6.4-8.2) g/dl Albumin 3.8 (3.4-5.0) g/dl Globulin 4.5 gm/dL Albumin/Globulin Ratio 0.8 L (1-2) Urine Color Dark yellow (Yellow) Urine Appearance Clear (Clear) Urine pH 6.5 (5.0-8.0) Ur Specific Russell 1.025 (1.005-1.030) Urine Protein 1+ H (Negative) Urine Glucose (UA) Negative (Negative) Urine Ketones Negative (Negative) Urine Occult Blood Trace-intact H (Negative) Urine Nitrite Negative (Negative) Urine Bilirubin Negative (Negative) Urine Urobilinogen 0.2 (0.2-1.0) Ur Leukocyte Esterase Negative (Negative) U Hyaline Cast (Auto) 30-40 H (0-5) /lpf Urine RBC 5-10 H (0-5) /hpf Urine WBC 5-10 H (0-5) /hpf Ur Squamous Epith Cells 5-10 H (0-5) /hpf Amorphous Sediment Few H (NOT SEEN) /hpf Urine Bacteria Many H (FEW) /hpf Urine Mucus Many H (FEW) /hpf Meds: Medications Generic Name Dose Route Start Last Admin Trade Name Freq PRN Reason Stop Dose Admin Sodium Chloride 100 mls @ 75 mls/hr 10/16/19 18:00 10/16/19 18:11 Normal Saline IV 75 mls/hr ASDIRECTED ZENA Administration Sodium Chloride 10 ml 10/16/19 16:32 10/16/19 16:48 Saline Flush FLUSH 10 ml ASDIRECTED PRN Administration Keep Vein Open Sodium Chloride 10 ml 10/16/19 17:51 10/16/19 18:11 Saline Flush FLUSH 10 ml ONETIME PRN Administration IV FLUSH Discontinued Medications Generic Name Dose Route Start Last Admin Trade Name Darnellq PRN Reason Stop Dose Admin Sodium Chloride 1,000 mls @ 1,000 mls/hr 10/16/19 16:32 10/16/19 16:49 Normal Saline IV 10/16/19 17:31 1,000 mls/hr ONETIME ONE Administration Iopamidol 100 ml 10/16/19 17:51 10/16/19 18:11 [id number] (76%) IVPUSH 10/16/19 17:52 100 ml ONETIME ONE Administration Departure - Departure Time of Disposition: 19:10 Disposition: Home, Self-Care 01 Clinical Impression: Dizziness - Discharge Information Referrals: Tank Ugalde MD [Primary Care Provider] - Forms: ED Department Discharge Additional Instructions: Home, rest, return as needed for worsening condition Sepsis Event Note (ED) - Evaluation Sepsis Screening Result: No Definite Risk - Focused Exam Vital Signs: Vital Signs Temp Pulse Resp BP Pulse Ox 10/16/19 16:24 97.5 F 71 16 103/77 96 - My Orders Last 24 Hours: My Active Orders 10/16/19 16:32 CTA Neck W & W/O Contrast [Ang Neck] [CT] Stat Sodium Chloride 0.9% [Saline Flush] 10 ml FLUSH ASDIRECTED PRN Saline Lock Insert [OM.PC] Stat 10/16/19 17:51 Sodium Chloride 0.9% [Saline Flush] 10 ml FLUSH ONETIME PRN 10/16/19 18:00 Sodium Chloride 0.9% [Normal Saline] 100 ml IV ASDIRECTED - Assessment/Plan Last 24 Hours: My Active Orders 10/16/19 16:32 CTA Neck W & W/O Contrast [Ang Neck] [CT] Stat Sodium Chloride 0.9% [Saline Flush] 10 ml FLUSH ASDIRECTED PRN Saline Lock Insert [OM.PC] Stat 10/16/19 17:51 Sodium Chloride 0.9% [Saline Flush] 10 ml FLUSH ONETIME PRN 10/16/19 18:00 Sodium Chloride 0.9% [Normal Saline] 100 ml IV ASDIRECTED
[2019-10-16] MEDS ORDERED: Iopamidol 755 Mg/ML 100 ML Bottle IVPUSH ONE (17:51)
[2019-10-16] MEDS ORDERED: Sodium Chloride 0.9% 100 ML IV SCH (18:00)
--- NOTE | 2019-10-17 06:38 | CT ---
CT angiogram of neck Technique: Multiple axial sections through the neck were obtained. Intravenous contrast initially not utilized. Intravenous contrast then given an image obtained during the arterial phase. Multiple MIP images were obtained. Comparison: No prior neck arterial imaging is available. Findings: Aberrant right subclavian artery is seen which extends posterior to the esophagus which is usually considered a normal variant. Vertebral arteries are patent into the basilar artery. Common carotid arteries are patent. Proximal external carotid arteries are patent. Internal arteries appear patent. No occlusion or dissection is appreciated. Impression: 1. Aberrant right subclavian artery which is considered a normal variant. 2. CT angiogram of the neck is otherwise unremarkable. No arterial occlusion or stenosis is seen. Diagnostic code #2 This report was dictated in MDT I agree with preliminary report from [facility], finalized on 10/16/19, 7:29 PM Central Daylight Time
== END 2019-10-16 19:25 | disposition home or self-care (01) ==
LOC: JD.ED 16:17
DX: R42 Dizziness and giddiness (principal); I10 Essential (primary) hypertension; E66.9 Obesity, unspecified; Z68.41 Body mass index [BMI] 40.0-44.9, adult
CPT/HCPCS: 36415; 70498; 80053; 81001; 85025; 96360; 99284; J7030; J7050; Q9967; 99283

== ENCOUNTER 2019-10-16 21:40 | Observation (INO) | payer MEDICAID ==
--- NOTE | 2019-10-16 22:31 | EDM.PDOC ---
ED HPI GENERAL MEDICAL PROBLEM - General Chief Complaint: Syncope Stated Complaint: [facility] Time Seen by Provider: 10/16/19 21:54 Source of Information: Reports: Patient, Family (Brother) History Limitations: Reports: No Limitations - History of Present Illness INITIAL COMMENTS - FREE TEXT/NARRATIVE: Ms. Morrell is a very pleasant 44-year-old woman with a past medical history significant for epileptic seizures, who, medical records indicate, was seen in this ED earlier this afternoon with a complaint at that time of lightheadedness and feeling hot all over. She reported that she had been at the chiropractor, and when he was adjusting her neck, she developed the hot feeling all over as well as some numbness to the right side of her body. She went and sat down for a little while, her symptoms resolved, so her chiropractor resumed the adjustment, causing the symptoms to return. She was therefore sent to the ED for evaluation. Here in the ED, she was found to be hemodynamically stable, afebrile, saturating 96% on room air. No abnormalities were found on physical exam. A work-up included a CBC, CMP, a urinalysis, and a CT angiogram of her neck. Her work-up was negative, with the exception of a possible UTI. She was discharged home. She now returns to the ED stating that after she left the ED, she went to [facility], but again started feeling hot all over. She went home, but as she was looking for her keys to open her front door, she again felt hot and suffered a syncopal episode, finding herself on the ground. She had abraded her face and l ower lip and injured one of her teeth. No seizure-like activity was observed by her family, and paramedics reported that she was not postictal. The patient expressly denies that she had any preceding chest pain or palpitations. Here in the ED, the patient's initial BP is found to be slightly elevated at 125/93, otherwise, she is hemodynamically stable, afebrile, saturating 95% on room air. Other than today's symptoms, the patient reports that she suffered an episode of diverticulitis about 2 to 3 weeks ago, successfully treated with antibiotics. Other than that, however, the patient denies recent fever, chills, sore throat, ear pain, nasal or sinus congestion, cough, dyspnea, chest pain, palpitations, nausea, vomiting, constipation, diarrhea, urinary symptoms, recent weight gain or weight loss, recent bloody bowel movements or black bowel movements, recent joint aches, headaches, or rashes. The patient states that the last imaging of her head was more than 3 years ago. The patient's PCP is Dr. Tank Ugalde. Oral/Mouth Pain Score (Numeric/FACES): 2 - Related Data Allergies Allergy/AdvReac Type Severity Reaction Status Date / Time No Known Allergies Allergy Verified 10/16/19 21:49 Home Meds: Home Meds levETIRAcetam [Keppra] 1,000 mg PO QAM 08/19/13 [History] levETIRAcetam [Keppra] 1,500 mg PO BEDTIME 08/19/13 [History] Dicyclomine [Bentyl] 20 mg PO Q6H PRN #8 tablet 09/18/19 [Rx] Amoxicillin/Potassium Clav [Augmentin 875-125 Tablet] 1 tab PO BID 09/24/19 [History] Past Medical History HEENT History: Reports: Impaired Vision (wears glasses) Cardiovascular History: Reports: Hypertension Gastrointestinal History: Reports: Diverticulosis (diverticulitis) Musculoskeletal History: Reports: Arthritis Neurological History: Reports: Seizure Endocrine/Metabolic History: Reports: Obesity/BMI 30+ Dermatologic History: Reports: Eczema - Infectious Disease History Infectious Disease History: Reports: Chicken Pox, Measles, Mumps - Past Surgical History HEENT Surgical History: Reports: Oral Surgery (wisdom teeth extraction) GI Surgical History: Reports: Cholecystectomy (around 2002) Social & Family History - Family History Family Medical History: Noncontributory - Tobacco Use Smoking Status *Q: Never Smoker Second Hand Smoke Exposure: No - Caffeine Use Caffeine Use: Reports: None - Alcohol Use Alcohol Use History: No - Recreational Drug Use Recreational Drug Use: No - Living Situation & Occupation Living situation: Reports: Single, with Family (Mother) Occupation: Disabled ED ROS GENERAL - Review of Systems Review Of Systems: Comprehensive ROS is negative, except as noted in HPI. Neurological: Reports: Headache (frequent) - Physical Exam Exam: See Below Exam Limited By: No Limitations General Appearance: Alert, WD/WN, No Apparent Distress Eye Exam: Bilateral Eye: EOMI, Normal Inspection, PERRL Ears: Normal External Exam, Normal Canal, Hearing Grossly Normal, Normal TMs Nose: Normal Inspection, Normal Mucosa, No Blood Throat/Mouth: Normal Inspection, Normal Gums, Normal Oropharynx, Normal Voice, No Airway Compromise, Other (Abrasions to the patient's lower lip, and her tooth #9 appears to be angled inward) Head Exam: Normocephalic, Other (Left facial abrasion) Neck: Normal Inspection, Limited Range of Motion, Other (The patient reports the same neck pain that prompted her to go to the chiropractor earlier today) Respiratory/Chest: No Respiratory Distress, Lungs Clear, Normal Breath Sounds, No Accessory Muscle Use Cardiovascular: Normal Peripheral Pulses, Regular Rate, Rhythm, No Edema, No Gallop, No JVD, No Murmur, No Rub GI/Abdominal: Normal Bowel Sounds, Soft, Non-Tender, No Organomegaly, No Distention, No Abnormal Bruit, No Mass (Female) Exam: Deferred Rectal (Female) Exam: Deferred Neuro Exam (Abbreviated): Alert, Oriented, CN II-XII Intact, Normal Cognition, No Motor/Sensory Deficits Back Exam: Normal Inspection, Full Range of Motion, NT Extremities: Normal Inspection, Normal Range of Motion, No Pedal Edema, Normal Capillary Refill Psychiatric: Normal Affect Skin Exam: Warm, Dry, Intact, Normal Color, No Rash EKG INTERPRETATION EKG Date: 10/16/19 Time: 22:37 Rhythm: NSR Rate (Beats/Min): 77 Kimball: Normal P-Wave: Enlarged (LAE) QRS: Other (Late transition) ST-T: Normal QT: Normal Comparison: No Change (08/20/2013) Course - Vital Signs Last Recorded V/S: Last Vital Signs Temp 36.9 C 10/17/19 01:37 Pulse 75 10/17/19 01:37 Resp 20 10/17/19 01:37 BP 117/68 10/17/19 01:37 Pulse Ox 97 10/17/19 01:37 Orthostatic Blood Pressure [ 161/101 Standing] Orthostatic Blood Pressure [ 168/125 Sitting] Orthostatic Blood Pressure [ 150/101 Supine] - Orders/Labs/Meds Orders: Active Orders 24 hr Category Date Time Status EKG Documentation Completion [RC] STAT Care 10/16/19 22:21 Active Orthostatic Vital Signs [RC] STAT Care 10/16/19 22:22 Active Ang Chest [CT] Stat Exams 10/17/19 00:06 Taken Head wo Cont [CT] Stat Exams 10/16/19 22:21 Taken CULTURE URINE [RM] Stat Lab 10/16/19 16:45 Received Sodium Chloride 0.9% [Normal Saline] 1,000 ml Med 10/17/19 00:15 Active IV ASDIRECTED Medication Orders Sodium Chloride (Normal Saline) 1,000 mls @ 150 mls/hr IV ASDIRECTED ZENA Last Admin: 10/17/19 01:34 Dose: 150 mls/hr Documented by: IBETH Labs: Laboratory Tests 10/16/19 10/16/19 Range/Units 23:15 23:15 D-Dimer, Quantitative 0.85 H (0.19-0.50) mg/L Magnesium 2.0 (1.8-2.4) mg/dl Troponin I < 0.017 (0.00-0.056) ng/mL Meds: Medications Generic Name Dose Route Start Last Admin Trade Name Freq PRN Reason Stop Dose Admin Sodium Chloride 1,000 mls @ 150 mls/hr 10/17/19 00:15 10/17/19 01:34 Normal Saline IV 150 mls/hr ASDIRECTED ZENA Administration Discontinued Medications Generic Name Dose Route Start Last Admin Trade Name Freq PRN Reason Stop Dose Admin Sodium Chloride 100 mls @ 4 mls/sec 10/17/19 01:46 10/17/19 01:47 Normal Saline IV 10/17/19 01:47 4 mls/sec ONETIME ONE Administration Iopamidol 100 ml 10/17/19 01:46 10/17/19 01:48 Isovue-370 (76%) IVPUSH 10/17/19 01:47 100 ml ONETIME ONE Administration Nitrofurantoin Macrocrystals 100 mg 10/16/19 23:33 10/16/19 23:41 Macrobid PO 10/16/19 23:34 100 mg ONETIME STA Administration - Re-Assessments/Exams Free Text/Narrative Re-Assessment/Exam: 10/16/19 22:24 As above, the patient was seen in this ED this afternoon for lightheadedness and feeling hot all over, and now returns to the ED after suffering a syncopal episode at home. No seizure-like activity was witnessed, and the patient was not postictal for EMS. We do not need to repeat a CBC or CMP, since they were just completed a few hours ago, however, I have added a magnesium level, a troponin, and a D-dimer. In addition, I have ordered orthostatics, a CT scan of her head without contrast, and an ECG. As I was examining the patient, her brother entered the room. When I explained to the patient what I intended to order, he stated that he wanted the patient to be transferred. I attempted to explain that before I can transfer her, I need a medical reason to do so, that I cannot simply put her into an ambulance and send her to [facility], at which point he got onto his cellphone and complained to someone on the other end that I was not willing to transfer the patient because I needed a medical reason to do so, which is not an accurate reflection of what I said; I did not refuse to transfer the patient, but before I attempt to do so, I need to find a medical reason to do so. 10/16/19 22:35 The patient is not orthostatic. 10/16/19 23:49 The patient's magnesium is within normal limits at 2.0. Her troponin is undetectably low. Her D-dimer is mildly elevated at 0.85. Note that the patient's BUN/Cr were normal at 10/0.8 this afternoon. 10/17/19 00:01 CT of the head without contrast is read by [facility] as "No acute intracranial process." 10/17/19 00:06 Test results discussed with the patient and her mother. As above, today's work- up is unremarkable, with exception of a mildly elevated D-dimer. I explained that I doubt that a D-dimer of 0.85 is consistent with a PE, particularly one large enough to cause the patient to have a syncopal episode, however, if the patient wanted to be more certain, then a CT angiogram of the chest would need to be performed. I did not push for the study, and I explained to the patient t lisa that the study would require an additional dose of iodinated contrast, as well as an additional dose of radiation. Both the patient and her mother would like us to proceed with that CT. The patient also mentioned that she would like to be admitted to this hospital, if possible. She does not want to be transferred to [facility]. 10/17/19 02:14 CT angiogram of the chest is read by [facility] as: 1. No acute abnormality. 2. No evidence for pulmonary embolic disease. 10/17/19 02:20 CT results discussed with the patient and her mother. I will place the patient into observation with a diagnosis of syncope, and allow Dr. Whiting to evaluate her in the morning. The patient is aware that there is a good chance that he will discharge her after she is seen. In order to allow Dr. Whiting to get some rest, I will notify him in the morning of the patient's admission. I will write some bridge orders at this time. Departure - Departure Time of Disposition: 02:21 Disposition: Refer to Observation Condition: Good Clinical Impression: Syncope - Discharge Information *PRESCRIPTION DRUG MONITORING PROGRAM REVIEWED*: Not Applicable *COPY OF PRESCRIPTION DRUG MONITORING REPORT IN PATIENT HERMINIA: Not Applicable Referrals: Tank Ugalde MD [Primary Care Provider] - Forms: ED Department Discharge Sepsis Event Note (ED) - Evaluation Sepsis Screening Result: No Definite Risk - Focused Exam Vital Signs: Vital Signs Temp Pulse Resp BP Pulse Ox 10/17/19 01:37 36.9 C 75 20 117/68 97 10/16/19 21:46 36.3 C 80 16 125/93 H 95 - My Orders Last 24 Hours: My Active Orders 10/16/19 16:45 CULTURE URINE [RM] Stat 10/16/19 22:21 EKG Documentation Completion [RC] STAT Head wo Cont [CT] Stat 10/16/19 22:22 Orthostatic Vital Signs [RC] STAT 10/17/19 00:06 Ang Chest [CT] Stat 10/17/19 00:15 Sodium Chloride 0.9% [Normal Saline] 1,000 ml IV ASDIRECTED - Assessment/Plan Last 24 Hours: My Active Orders 10/16/19 16:45 CULTURE URINE [RM] Stat 10/16/19 22:21 EKG Documentation Completion [RC] STAT Head wo Cont [CT] Stat 10/16/19 22:22 Orthostatic Vital Signs [RC] STAT 10/17/19 00:06 Ang Chest [CT] Stat 10/17/19 00:15 Sodium Chloride 0.9% [Normal Saline] 1,000 ml IV ASDIRECTED
[2019-10-16] MEDS ORDERED: Nitrofurantoin Monohydrate/Macrocrystalline 100 MG Cap PO STA (23:33)
[2019-10-17] MEDS ORDERED: Sodium Chloride 0.9% 1,000 ML IV SCH (00:15)
[2019-10-17] MEDS ORDERED: Sodium Chloride 0.9% 100 ML IV ONE (01:46)
[2019-10-17] MEDS ORDERED: Iopamidol 755 Mg/ML 100 ML Bottle IVPUSH ONE (01:46)
[2019-10-17] MEDS ORDERED: Ondansetron 4 MG/2 ML SDV IVPUSH PRN (04:41)
--- NOTE | 2019-10-17 06:40 | CT ---
Head CT Technique: Multiple axial sections through the brain were obtained. Intravenous contrast was not utilized. Comparison: Prior head CT study of 06/01/13 is available. Findings: Ventricles along with basal cisterns and sulci over the convexities are within normal limits for the patient's age. No abnormal parenchymal densities are seen. No evidence of intracranial hemorrhage. No midline shift or mass-effect is seen. Bone window settings were reviewed. Visualized paranasal sinuses and visualized mastoid sinuses show nothing acute. No acute calvarial finding is seen. Impression: 1. Nothing acute is identified on noncontrast head CT exam. Diagnostic code #1 This report was dictated in MDT I agree with preliminary report from [facility], finalized on 10/17/19, 12:44 AM Central Daylight Time
--- NOTE | 2019-10-17 06:41 | CT ---
CT chest Technique: Multiple axial sections through the chest were obtained. Intravenous contrast was utilized. Study performed as a pulmonary angiogram protocol. Comparison: No prior chest imaging is available. Findings: Pulmonary arteries are moderately well opacified. No filling defects are seen to indicate pulmonary embolism. Aorta shows no aneurysm. No mediastinal mass or adenopathy is seen. No axillary adenopathy is seen. Visualized upper abdominal structures shows previous cholecystectomy. Small hiatal hernia is noted. Lungs are clear with no acute parenchymal change. Bone window settings were reviewed. Minimal degenerative endplate spurring scattered within the spine. No acute osseous finding is appreciated. Impression: 1. No findings of pulmonary embolism. Other findings believed to be incidental as noted above. 2. Nothing acute is seen on CT study of the chest. Diagnostic code #1 This report was dictated in MDT I agree with preliminary report from [facility], finalized on 10/17/19, 3:12 AM Central Daylight Time
[2019-10-17 08:12] VITALS: BP 134/78; PULSE 81
[2019-10-17] MEDS ORDERED: LEVETIRACETAM 1000 MG PO SCH ×2 (09:15→21:00)
--- NOTE | 2019-10-17 09:50 | PCM.HP.2 ---
H&P History of Present Illness - General Date of Service: 10/17/19 Admit Problem/Dx: Admission Diagnosis/Problem Admission Diagnosis/Problem Syncope Source of Information: Patient, Provider, RN, RN Notes Reviewed History Limitations: Reports: No Limitations - History of Present Illness Initial Comments - Free Text/Narative: Farideh Morrell is a 44 yo female who presents to ED in the evening of 10/16/2019 via [facility] after a syncopal event. She had been seen in the ED earlier in the afternoon for "lightheadedness and a hot feeling all over." Reports her symptoms had started earlier in the day she went to her chiropractor who attempted to adjust her neck. She continued to have symptoms and now reported a numbness the right side of her body. Her chiropractor sent her to the emergency room. CT angiogram of the neck was performed and was negative. UA was obtained and look like it was contaminated. At that time her work-up was unremarkable and she was discharged. She reports she went to [facility] and then came home. She reports she was not feeling well on the ride home and while attempting to find her keys and her door she passed out. This led to her knocking a tooth out of place and a facial abrasion. Family summoned an ambulance. No seizure-like activity was noted by family or paramedics. Denied any chest pain or palpitations. Denies any recent fever, chills, sore throat, ear pain, nasal pain, sinus congestion, cough, dyspnea, nausea, vomiting, constipation, diarrhea, urinary symptoms, recent weight gain or recent weight loss, joint aches, headache, or rashes. She reports she had a episode of diverticulitis about 2 or 3 weeks ago and was prescribed antibiotics, which led to its resolution. In the ED she was afebrile with a pulse of 75 respirations were 20. Blood pressure 117/68. Twelve-lead EKG was obtained showing sinus rhythm at 77 bpm with enlarged P waves and late transition noted. There is no significant change from 08/20/2013. She is not orthostatic. D-dimer was obtained and was elevated at 0.85. Magnesium was 2.0. Troponin was negative. Labs from prior visit were reviewed. CT of the head was obtained and showed no acute intracranial process. Due to the elevated d-dimer a CTA of the chest was obtained showing no's findings of pulmonary embolism. Other incidental findings were noted. Patient was in agreement to be admitted overnight for observation. She was given a dose of nitrofurantoin for a questionable UTI. She was started on IV fluids. She carries a history of hypertension, diverticulosis, arthritis, seizure, obesity, eczema. She is on Keppra for her seizures and reports that her dosing was changed about 3 weeks ago. PCP is Dr. Ugalde. She does not see a neurologist. She is a full code. She subsequently admitted to the medical floor observation status for syncopal work-up. Oral/Mouth Pain Score (Numeric/FACES): 2 - Related Data Allergies/Adverse Reactions: Allergies Allergy/AdvReac Type Severity Reaction Status Date / Time No Known Allergies Allergy Verified 10/16/19 21:49 Home Medications: Home Meds levETIRAcetam [Keppra] 1,000 mg PO QAM 08/19/13 [History] levETIRAcetam [Keppra] 1,500 mg PO BEDTIME 08/19/13 [History] Sennosides [Senna] 2 tab PO DAILY PRN #10 tab 10/17/19 [Rx] Past Medical History HEENT History: Reports: Impaired Vision (wears glasses) Other HEENT History: Wears glasses Cardiovascular History: Reports: Hypertension Respiratory History: Reports: None Gastrointestinal History: Reports: Diverticulosis (diverticulitis) Other Gastrointestinal History: diverticulitis Genitourinary History: Reports: UTI, Recurrent [employer] History: Reports: None Musculoskeletal History: Reports: Arthritis Other Musculoskeletal History: "calcification tendonitis." Neurological History: Reports: Seizure Other Neuro History: Seizure-2 weeks ago. Psychiatric History: Reports: None Endocrine/Metabolic History: Reports: Obesity/BMI 30+ Hematologic History: Reports: None Immunologic History: Reports: None Oncologic (Cancer) History: Reports: None Dermatologic History: Reports: Eczema - Infectious Disease History Infectious Disease History: Reports: Chicken Pox, Measles, Mumps - Past Surgical History HEENT Surgical History: Reports: Oral Surgery (wisdom teeth extraction) GI Surgical History: Reports: Cholecystectomy (around 2002) Social & Family History - Family History Family Medical History: Noncontributory - Tobacco Use Smoking Status *Q: Never Smoker Second Hand Smoke Exposure: No - Caffeine Use Caffeine Use: Reports: None - Recreational Drug Use Recreational Drug Use: No - Living Situation & Occupation Living situation: Reports: Single, with Family (Mother) Occupation: Disabled H&P Review of Systems - Review of Systems: Review Of Systems: See Below General: Reports: No Symptoms. Denies: Fever, Chills, Malaise, Weakness, Fatigue HEENT: Reports: No Symptoms, Other (Tooth pain with crooked tooth from fall. Abrasion to lip and chin. ). Denies: Headaches, Sore Throat Pulmonary: Reports: No Symptoms. Denies: Shortness of Breath, Wheezing, Pleuritic Chest Pain, Cough, Sputum Cardiovascular: Reports: No Symptoms. Denies: Chest Pain, Palpitations, Edema Gastrointestinal: Reports: Constipation. Denies: Abdominal Pain, Diarrhea, Nausea, Vomiting Genitourinary: Reports: No Symptoms. Denies: Dysuria, Frequency, Burning, Pain, Urgency, Incontinence Musculoskeletal: Reports: No Symptoms Skin: Reports: No Symptoms. Denies: Cyanosis Psychiatric: Reports: No Symptoms. Denies: Confusion Neurological: Reports: Syncope. Denies: Confusion, Dizziness, Headache, Numbness, Tingling, Difficulty Walking, Weakness, Gait Disturbance Hematologic/Lymphatic: Reports: No Symptoms Immunologic: Reports: No Symptoms Exam - Exam Exam: See Below - Vital Signs Vital Signs: Last Vital Signs Temp 96.6 F L 10/17/19 07:33 Pulse 81 10/17/19 07:33 Resp 18 10/17/19 07:33 BP 134/78 10/17/19 07:33 Pulse Ox 94 L 10/17/19 07:33 Orthostatic Blood Pressure [ 161/101 Standing] Orthostatic Blood Pressure [ 168/125 Sitting] Orthostatic Blood Pressure [ 150/101 Supine] Weight: 235 lb 12.8 oz - Exam Quality Assessment: DVT Prophylaxis. No: Supplemental Oxygen, Urinary Catheter General: Alert, Oriented, Cooperative. No: Mild Distress HEENT: Conjunctiva Clear, EACs Clear, Posterior Pharynx Clear, PERRLA. No: Mucosa Moist & [place] (Looks dry) Neck: Supple, Trachea Midline Lungs: Clear to Auscultation, Normal Respiratory Effort Cardiovascular: Regular Rate, Regular Rhythm GI/Abdominal Exam: Normal Bowel Sounds, Soft, Non-Tender, No Distention (Female) Exam: Deferred Rectal (Female) Exam: Deferred Back Exam: Normal Inspection, Full Range of Motion Extremities: Normal Inspection, Normal Range of Motion, Non-Tender, No Pedal Edema, Normal Capillary Refill Peripheral Pulses: 2+: Dorsalis Pedis (L), Dorsalis Pedis (R), 3+: Radial (L), Radial (R) Skin: Warm, Dry, Intact Neurological: Cranial Nerves Intact Neuro Extensive - Mental Status: Alert, Oriented x3, Normal Mood/Affect - Patient Data Lab Results Last 24 hrs: Laboratory Results - last 24 hr 10/16/19 10/16/19 10/17/19 Range/Units 23:15 23:15 02:45 D-Dimer, Quantitative 0.85 H (0.19-0.50) mg/L Magnesium 2.0 (1.8-2.4) mg/dl Troponin I < 0.017 (0.00-0.056) ng/mL COVID-19 (ARMANDO) Negative (NEGATIVE) Sepsis Event Note - Evaluation Sepsis Screening Result: No Definite Risk - Focused Exam Vital Signs: Vital Signs Temp Temp Pulse Pulse Resp BP BP 10/17/19 07:33 96.6 F L 81 18 134/78 10/17/19 03:38 97.5 F 78 18 120/88 10/17/19 02:32 97.9 F 77 17 125/74 10/17/19 01:37 98.5 F 75 20 117/68 Pulse Ox 10/17/19 07:33 94 L 10/17/19 03:38 96 10/17/19 02:32 95 10/17/19 01:37 97 Date Exam was Performed: 10/17/19 Time Exam was Performed: 11:51 - Problem List (1) Syncope SNOMED Code(s): 776075367 ICD Code: R55 - SYNCOPE AND COLLAPSE Status: Acute Priority: High Current Visit: Yes Qualifiers: Syncope type: unspecified Qualified Code(s): R55 - Syncope and collapse (2) Status post fall SNOMED Code(s): 924061799 ICD Code: Z91.81 - HISTORY OF FALLING Status: Acute Priority: High Current Visit: Yes (3) HTN (hypertension) SNOMED Code(s): 28385990 ICD Code: I10 - ESSENTIAL (PRIMARY) HYPERTENSION Status: Chronic Priority: Low Current Visit: No Qualifiers: Hypertension type: unspecified Qualified Code(s): I10 - Essential (primary) hypertension (4) Diverticulosis SNOMED Code(s): 562899035 ICD Code: K57.90 - DVRTCLOS OF INTEST, PART UNSP, W/O PERF OR ABSCESS W/O BLEED Status: Chronic Priority: Low Current Visit: No (5) History of seizures SNOMED Code(s): 969142955 ICD Code: Z87.898 - PERSONAL HISTORY OF OTHER SPECIFIED CONDITIONS Status: Chronic Priority: Medium Current Visit: No (6) Arthritis SNOMED Code(s): 4973504 ICD Code: M19.90 - UNSPECIFIED OSTEOARTHRITIS, UNSPECIFIED SITE Status: Chronic Priority: Low Current Visit: No (7) Obesity SNOMED Code(s): 893112686, 472465586 ICD Code: E66.9 - OBESITY, UNSPECIFIED Status: Chronic Priority: Low Current Visit: No Qualifiers: Obesity type: unspecified obesity type Obesity classification: adult class 3 (BMI >= 40) Body mass index: BMI 40.0-44.9 (8) Chronic eczema SNOMED Code(s): 31322524 ICD Code: L30.9 - DERMATITIS, UNSPECIFIED Status: Chronic Priority: Low Current Visit: No Problem List Initiated/Reviewed/Updated: Yes Orders Last 24hrs: Active Orders 24 hr Category Date Time Status Admission Status [Patient Status] [ADT] Routine ADT 10/17/19 02:28 Active Holter Monitor 48 Hours [RC] .PRN Care 10/17/19 08:48 Active Up With Assistance [RC] DAILY Care 10/17/19 04:58 Active Regular Diet [DIET] Diet 10/17/19 Breakfast Active CULTURE URINE [RM] Stat Lab 10/16/19 16:45 Received LEVETIRACETAM, S [REF] Stat Lab 10/17/19 08:52 Ordered UA W/MICROSCOPIC [URIN] Stat Lab 10/17/19 08:48 Ordered Non-Formulary Medication [NF Drug] Med 10/17/19 21:00 Active 0 each PO BEDTIME Ondansetron [Zofran] Med 10/17/19 04:41 Active 4 mg IVPUSH Q6HR PRN levETIRAcetam [Keppra] Med 10/17/19 09:15 Active 1,000 mg PO QAM Resuscitation Status Routine Resus Stat 10/17/19 04:54 Ordered Medication Orders Levetiracetam 1,000 (Mg Tab Ptom) 1,000 mg PO QAM [facility] Last Admin: 10/17/19 09:20 Dose: 1,000 mg Documented by: MAI Levetiracetam 1000 (Mg Tab Ptom) 0 each PO BEDTIME ZENA Ondansetron HCl (Zofran) 4 mg IVPUSH Q6HR PRN PRN Reason: Nausea Assessment/Plan Comment:: Syncope Status post fall HTN (hypertension) History of seizures Seen twice in ED on 10/16/19 - once for lightheadedness and "warm feeling" and once for syncope and fall Family and paramedics deny seizure activity or postictal state Labs grossly normal UA questionable but looks like contaminant History of seizures with Keppra adjustment 2-3 weeks ago (increased) Has been taking her medications Fell while attempting to open door leading to facial abrasions and loose tooth No current infectious symptoms Head CT shows nothing acute CTA shows no PE and incidental findings Given one dose of nitrofurantoin BP has been normal on floor Clinically looked a bit dry Unfortunately telemetry was not ordered overnight PLAN - Admit to floor observation status - Repeat UA - Check keppra level - DC IV fluids - received overnight with good urine output now - Holter monitor at discharge - Suggest loop recorder arranged by PCP if continued symptoms - PCP follow-up regarding Holter results and Keppra level (send out lab) Constipation Reports worsening constipation for since Keppra dosing change PLAN - Start daily senna Diverticulosis Arthritis Obesity Chronic eczema No current concerns PLAN - Monitor DVT Prophylaxis: None - discharging today GI Prophylaxis: Not indicated Code Status: Full code PCP: Dr. Ugalde Disposition: Patient admitted overnight for observation with syncopal episode. Will discharge today pending resolution of symptoms and lab work. - Mortality Measure Prognosis:: Good
[2019-10-17] MEDS ORDERED: Sennosides 8.6 MG Tab PO SCH ×2 (10:30)
--- NOTE | 2019-10-17 12:00 | PCM.DCSUM1 ---
Discharge Summary - Hospital Course HPI Initial Comments: Farideh Morrell is a 44 yo female who presents to ED in the evening of 10/16/2019 via [facility] after a syncopal event. She had been seen in the ED earlier in the afternoon for "lightheadedness and a hot feeling all over." Reports her symptoms had started earlier in the day she went to her chiropractor who attempted to adjust her neck. She continued to have symptoms and now reported a numbness the right side of her body. Her chiropractor sent her to the emergency room. CT angiogram of the neck was performed and was negative. UA was obtained and look like it was contaminated. At that time her work-up was unremarkable and she was discharged. She reports she went to [facility] and then came home. She reports she was not feeling well on the ride home and while attempting to find her keys and her door she passed out. This led to her knock ing a tooth out of place and a facial abrasion. Family summoned an ambulance. No seizure-like activity was noted by family or paramedics. Denied any chest pain or palpitations. Denies any recent fever, chills, sore throat, ear pain, nasal pain, sinus congestion, cough, dyspnea, nausea, vomiting, constipation, diarrhea, urinary symptoms, recent weight gain or recent weight loss, joint aches, headache, or rashes. She reports she had a episode of diverticulitis about 2 or 3 weeks ago and was prescribed antibiotics, which led to its resolution. In the ED she was afebrile with a pulse of 75 respirations were 20. Blood pressure 117/68. Twelve-lead EKG was obtained showing sinus rhythm at 77 bpm with enlarged P waves and late transition noted. There is no significant change from 08/20/2013. She is not orthostatic. D-dimer was obtained and was elevated at 0.85. Magnesium was 2.0. Troponin was negative. Labs from prior visit were reviewed. CT of the head was obtained and showed no acute intracranial process. Due to the elevated d-dimer a CTA of the chest was obtained showing no's findings of pulmonary embolism. Other incidental findings were noted. Patient was in agreement to be admitted overnight for observation. She was given a dose of nitrofurantoin for a questionable UTI. She was started on IV fluids. She carries a history of hypertension, diverticulosis, arthritis, seizure, obesity, eczema. She is on Keppra for her seizures and reports that her dosing was changed about 3 weeks ago[address] PCP is Dr. Ugalde. She does not see a neurologist. She is a full code. She subsequently admitted to the medical floor observation status for syncopal work-up. Diagnosis: Stroke: No - Discharge Data Discharge Date: 10/17/19 (Admit date: 10/16/19) Discharge Disposition: Home, Self-Care 01 Condition: Good - Referral to Home Health Primary Care Physician: Tank Ugalde MD - Discharge Diagnosis/Problem(s) (1) Syncope SNOMED Code(s): 322315687 ICD Code: R55 - SYNCOPE AND COLLAPSE Status: Acute Priority: High Current Visit: Yes Qualifiers: Syncope type: unspecified Qualified Code(s): R55 - Syncope and collapse (2) Status post fall SNOMED Code(s): 556534686 ICD Code: Z91.81 - HISTORY OF FALLING Status: Acute Priority: High Current Visit: Yes (3) HTN (hypertension) SNOMED Code(s): 32185669 ICD Code: I10 - ESSENTIAL (PRIMARY) HYPERTENSION Status: Chronic Priority: Low Current Visit: No Qualifiers: Hypertension type: unspecified Qualified Code(s): I10 - Essential (primary) hypertension (4) Diverticulosis SNOMED Code(s): 313616855 ICD Code: K57.90 - DVRTCLOS OF INTEST, PART UNSP, W/O PERF OR ABSCESS W/O BLEED Status: Chronic Priority: Low Current Visit: No (5) History of seizures SNOMED Code(s): 200667049 ICD Code: Z87.898 - PERSONAL HISTORY OF OTHER SPECIFIED CONDITIONS Status: Chronic Priority: Medium Current Visit: No (6) Arthritis SNOMED Code(s): 8023409 ICD Code: M19.90 - UNSPECIFIED OSTEOARTHRITIS, UNSPECIFIED SITE Status: Chronic Priority: Low Current Visit: No (7) Obesity SNOMED Code(s): 637583547, 305584373 ICD Code: E66.9 - OBESITY, UNSPECIFIED Status: Chronic Priority: Low Current Visit: No Qualifiers: Obesity type: unspecified obesity type Obesity classification: adult class 3 (BMI >= 40) Body mass index: BMI 40.0-44.9 (8) Chronic eczema SNOMED Code(s): 72446146 ICD Code: L30.9 - DERMATITIS, UNSPECIFIED Status: Chronic Priority: Low Current Visit: No - Patient Summary/Data Labs Pending at D/C: Keppra level Holter monitor applied at discharge Recommended Follow-up Testing/Procedures: Follow-up with primary care provider within 5-7 days of discharge, sooner if needed. -PCP will need to review Keppra level and Holter Monitor report with patient at that time. Consider neurology follow-up if symptoms continue. Consider loop recorder should symptoms continue. Hospital Course: Farideh was admitted to the hospital floor observation status after a syncopal episode. Family is questioning a seizure as the patient does have a history and is on Keppra. Per the patient's report her Keppra levels were increased about 2 to 3 weeks prior. She is not had any concerns until now. According to the ED note, family denied any seizure activity, as did the paramedics and no postictal state was noted. Labs were reviewed from her prior visit earlier in the day and this visit. UA at that time looked like it was mostly contaminants and a repeat UA was obtained which was negative. Anion gap was elevated and she did look slightly dry clinically so she was given IV fluids overnight which increased her urine output. She denied any urinary symptoms. Denied any dizziness or presyncopal episodes while here. We discussed staying hydrated and avoiding the heat as she reports she is quite sensitive to it. Unfortunately on admission she was now placed on telemetry. Twelve-lead EKG showed nothing acute and no change from 2014. Will order a Holter monitor on discharge for 48 hours. This will need to be reviewed by her primary care provider. We will also check a Keppra level which will need to be reviewed at her follow-up appointment. Home medications were continued and unchanged. She did report occasional constipation. She states that it had been present but resolved prior to discharge. She requested something for this. We will send PRN jimena. Should symptoms continue can follow-up with neurology or consider a loop recorder. She was instructed to follow-up with her primary care provider within 5 to 7 days. Was instructed not to drive today and to relax. She was instructed to immediately sit down if she feels symptoms again or to irrigation equipment remover if she is driving. We discussed her neck pain and she was advised to use heat for this. She had no other concerns. She will be discharged home today. - Patient Instructions Diet: Usual Diet as Tolerated Activity: As Tolerated, Rest and Relax Today Driving: Do Not Drive (today ) Showering/Bathing: May Shower Notify Provider of: Fever, Increased Pain, Nausea and/or Vomiting Other/Special Instructions: Follow-up with Dr. Ugalde within 5-7 days of discharge, sooner if needed. Stay hydrated. Drink plenty of fluid. Avoid alcohol, caffeine, soda, or energy drinks. Follow directions given to you for your Holter (cardiac) Monitor and when to return it, etc. We checked your Keppra (seizure medication) level here. It is a send out lab and will take a few days to get back. Dr. Ugalde can update you on this. You were started on a constipation medication at your request. You may stop this and talk with Dr. Ugalde should you notice diarrhea. Resume home medications as directed. You likely experienced a vaso-vagal syncpal episode (fainting spell) due to multiple factors, including the heat and humidity. If you start to feel these symptoms again make sure you sit down immediately. If you are driving irrigation equipment remover immediately. Should symptoms return or worsen contact Dr. Ugalde's office or return to the Emergency Department. - Discharge Plan *PRESCRIPTION DRUG MONITORING PROGRAM REVIEWED*: Not Applicable *COPY OF PRESCRIPTION DRUG MONITORING REPORT IN PATIENT HERMINIA: Not Applicable Prescriptions/Med Rec: Sennosides [Senna] 2 tab PO DAILY PRN #10 tab PRN Reason: Constipation Home Medications: Home Meds levETIRAcetam [Keppra] 1,000 mg PO QAM 08/19/13 [History] levETIRAcetam [Keppra] 1,500 mg PO BEDTIME 08/19/13 [History] Sennosides [Senna] 2 tab PO DAILY PRN #10 tab 10/17/19 [Rx] Oxygen Therapy Mode: Room Air Patient Handouts: Sepsis, Diagnosis, Adult, Urinary Tract Infection, Adult, Syncope Referrals: Tank Ugalde MD [Primary Care Provider] - 10/20/19 1:00 pm (Please follow up with Dr. Ugalde October 19 at 1pm.) - Discharge Summary/Plan Comment DC Time >30 min.: No - General Info Date of Service: 10/17/19 Admission Dx/Problem (Free Text: Admission Diagnosis/Problem Admission Diagnosis/Problem Syncope Functional Status: Reports: Pain Controlled, Tolerating Diet, Ambulating, Urinating. Denies: New Symptoms - Review of Systems General: Reports: No Symptoms. Denies: Fever, Weakness, Fatigue, Malaise, Chills HEENT: Reports: No Symptoms. Denies: Headaches, Sore Throat Pulmonary: Reports: No Symptoms. Denies: Shortness of Breath, Pleuritic Chest Pain, Cough, Sputum, Hemoptysis, Wheezing Cardiovascular: Reports: No Symptoms. Denies: Chest Pain, Palpitations, Edema Gastrointestinal: Reports: No Symptoms. Denies: Abdominal Pain, Constipation, Diarrhea, Nausea, Vomiting Genitourinary: Reports: No Symptoms. Denies: Pain Musculoskeletal: Reports: No Symptoms Skin: Reports: No Symptoms. Denies: Cyanosis Neurological: Reports: No Symptoms. Denies: Confusion, Dizziness, Headache, Numbness, Tingling, Tremors, Trouble Speaking, Difficulty Walking, Weakness, Gait Disturbance Psychiatric: Reports: No Symptoms - Patient Data Vitals - Most Recent: Last Vital Signs Temp 96.6 F L 10/17/19 07:33 Pulse 81 10/17/19 07:33 Resp 18 10/17/19 07:33 BP 134/78 10/17/19 07:33 Pulse Ox 94 L 10/17/19 07:33 Orthostatic Blood Pressure [ 161/101 Standing] Orthostatic Blood Pressure [ 168/125 Sitting] Orthostatic Blood Pressure [ 150/101 Supine] Weight - Most Recent: 235 lb 12.8 oz I&O - Last 24 hours: Intake & Output 10/16/19 10/17/19 10/17/19 22:59 06:59 14:59 Intake Total 360 Balance 360 Lab Results - Last 24 hrs: Laboratory Results - last 24 hr 10/16/19 10/16/19 10/17/19 Range/Units 23:15 23:15 02:45 D-Dimer, Quantitative 0.85 H (0.19-0.50) mg/L Magnesium 2.0 (1.8-2.4) mg/dl Troponin I < 0.017 (0.00-0.056) ng/mL Urine Color (Yellow) Urine Appearance (Clear) Urine pH (5.0-8.0) Ur Specific [place] (1.005-1.030) Urine Protein (Negative) Urine Glucose (UA) (Negative) Urine Ketones (Negative) Urine Occult Blood (Negative) Urine Nitrite (Negative) Urine Bilirubin (Negative) Urine Urobilinogen (0.2-1.0) Ur Leukocyte Esterase (Negative) Urine RBC (0-5) /hpf Urine WBC (0-5) /hpf Ur Squamous Epith Cells (0-5) /hpf Urine Bacteria (FEW) /hpf Urine Mucus (FEW) /hpf COVID-19 (ARMANDO) Negative (NEGATIVE) 10/17/19 Range/Units 10:05 D-Dimer, Quantitative (0.19-0.50) mg/L Magnesium (1.8-2.4) mg/dl Troponin I (0.00-0.056) ng/mL Urine Color Light yellow (Yellow) Urine Appearance Clear (Clear) Urine pH 7.5 (5.0-8.0) Ur Specific [place] 1.020 (1.005-1.030) Urine Protein Negative (Negative) Urine Glucose (UA) Negative (Negative) Urine Ketones Negative (Negative) Urine Occult Blood Negative (Negative) Urine Nitrite Negative (Negative) Urine Bilirubin Negative (Negative) Urine Urobilinogen 1.0 (0.2-1.0) Ur Leukocyte Esterase Negative (Negative) Urine RBC Not seen (0-5) /hpf Urine WBC 0-5 (0-5) /hpf Ur Squamous Epith Cells 0-5 (0-5) /hpf Urine Bacteria Rare (FEW) /hpf Urine Mucus Rare (FEW) /hpf COVID-19 (ARMANDO) (NEGATIVE) Med Orders - Current: Current Medications Levetiracetam 1,000 (Mg Tab Ptom) 1,000 mg PO QAM [facility] Last Admin: 10/17/19 09:20 Dose: 1,000 mg Documented by: Levetiracetam 1000 (Mg Tab Ptom) 0 each PO BEDTIME [facility] Ondansetron HCl (Zofran) 4 mg IVPUSH Q6HR PRN PRN Reason: Nausea Senna (Senna) 17.2 mg PO DAILY [facility] Last Admin: 10/17/19 11:14 Dose: 17.2 mg Documented by: Discontinued Medications Sodium Chloride (Normal Saline) 1,000 mls @ 150 mls/hr IV ASDIRECTED [facility] Last Admin: 10/17/19 01:34 Dose: 150 mls/hr Documented by: Sodium Chloride (Normal Saline) 100 mls @ 4 mls/sec IV ONETIME ONE Stop: 10/17/19 01:47 Last Admin: 10/17/19 01:47 Dose: 4 mls/sec Documented by: Iopamidol (Isovue-370 (76%)) 100 ml IVPUSH ONETIME ONE Stop: 10/17/19 01:47 Last Admin: 10/17/19 01:48 Dose: 100 ml Documented by: Nitrofurantoin Macrocrystals (Macrobid) 100 mg PO ONETIME STA Stop: 10/16/19 23:34 Last Admin: 10/16/19 23:41 Dose: 100 mg Documented by: Senna (Senna) 8.6 mg PO DAILY ZENA - Exam Quality Assessment: Reports: DVT Prophylaxis General: Reports: Alert, Oriented, Cooperative, No Acute Distress HEENT: Reports: Pupils Equal, Pupils Reactive, Mucous Membr. Moist/[place] Neck: Reports: Supple, Trachea Midline Lungs: Reports: Clear to Auscultation, Normal Respiratory Effort Cardiovascular: Reports: Regular Rate, Regular Rhythm GI/Abdominal Exam: Normal Bowel Sounds, Soft, Non-Tender, No Distention (Female) Exam: Deferred Rectal (Female) Exam: Deferred Back Exam: Reports: Normal Inspection, Full Range of Motion. Denies: CVA Tenderness (L), CVA Tenderness (R) Extremities: Normal Inspection, Normal Range of Motion, Non-Tender, No Pedal Edema, Normal Capillary Refill Skin: Reports: Warm, Dry, Intact Wound/Incisions: Reports: Other (Abrasion to face and lip. Not actively bleeding.) Neurological: Reports: No New Focal Deficit Psy/Mental Status: Reports: Alert, Normal Affect, Normal Mood
== END 2019-10-17 13:04 | disposition home or self-care (01) ==
LOC: JD.ED 21:40 → JD.MS 10-17 02:31
PROVIDERS: ADMIT Pediatrics; ATTEND Pediatrics
DX: R55 Syncope and collapse (principal); I10 Essential (primary) hypertension; M19.90 Unspecified osteoarthritis, unspecified site; E66.9 Obesity, unspecified; R56.9 Unspecified convulsions; K57.90 Diverticulosis of intestine, part unspecified, without perforation or abscess without bleeding; L30.9 Dermatitis, unspecified; Z20.828 Contact with and (suspected) exposure to other viral communicable diseases; Z79.899 Other long term (current) drug therapy; Z91.81 History of falling; Z68.41 Body mass index [BMI] 40.0-44.9, adult
CPT/HCPCS: 36415; 70450; 71275; 80177; 81001; 83735; 84484; 85379; 87086; 87635; 93005; 96360; 96361; 99285; A9270; J7030; J7050; Q9967; G0378; U0002

== ENCOUNTER 2020-01-25 08:40 | Emergency (ER) | payer MEDICAID ==
[2020-01-25 08:54] VITALS: BP 125/86
--- NOTE | 2020-01-25 11:31 | EDM.PDOC ---
ED HPI GENERAL MEDICAL PROBLEM - General Chief Complaint: Abdominal Pain Stated Complaint: LOW ABDOMINAL PAIN Time Seen by Provider: 01/25/20 09:21 Source of Information: Reports: Patient, RN Notes Reviewed - History of Present Illness INITIAL COMMENTS - FREE TEXT/NARRATIVE: 45 yr old female comes in with LLQ pain. This started yesterday, continues today. Hx of diverticulitis, states the discomfort does feel like that. No diarrhea. No fever or chills. She has not been vomiting. Left Lower Abdomen Pain Score (Numeric/FACES): 5 - Related Data Allergies Allergy/AdvReac Type Severity Reaction Status Date / Time No Known Allergies Allergy Verified 01/25/20 08:54 Home Meds: Home Meds levETIRAcetam [Keppra] 1,000 mg PO BEDTIME 08/19/13 [History] levETIRAcetam [Keppra] 1,000 mg PO QAM 08/19/13 [History] Sennosides [Senna] 2 tab PO DAILY PRN #10 tab 10/17/19 [Rx] Levofloxacin [Levaquin] 500 mg PO DAILY #10 tablet 01/25/20 [Rx] metroNIDAZOLE [Flagyl] 500 mg PO Q8H #20 tab 01/25/20 [Rx] Past Medical History HEENT History: Reports: Impaired Vision Other HEENT History: Wears glasses Cardiovascular History: Reports: Hypertension Respiratory History: Reports: None Gastrointestinal History: Reports: Diverticulosis Other Gastrointestinal History: diverticulitis Genitourinary History: Reports: UTI, Recurrent CASER IN History: Reports: None Musculoskeletal History: Reports: Arthritis Other Musculoskeletal History: "calcification tendonitis." Neurological History: Reports: Seizure Other Neuro History: Seizure-2 weeks ago. Psychiatric History: Reports: None Endocrine/Metabolic History: Reports: Obesity/BMI 30+ Hematologic History: Reports: None Immunologic History: Reports: None Oncologic (Cancer) History: Reports: None Dermatologic History: Reports: Eczema - Infectious Disease History Infectious Disease History: Reports: Chicken Pox, Measles, Mumps - Past Surgical History HEENT Surgical History: Reports: Oral Surgery GI Surgical History: Reports: Cholecystectomy Social & Family History - Family History Family Medical History: Noncontributory - Tobacco Use Tobacco Use Status *Q: Never Tobacco User - Caffeine Use Caffeine Use: Reports: Soda - Recreational Drug Use Recreational Drug Use: No - Living Situation & Occupation Living situation: Reports: Single, with Family (Mother) Occupation: Disabled ED ROS GENERAL - Review of Systems Review Of Systems: See Below Constitutional: Denies: Fever, Chills HEENT: Reports: No Symptoms Respiratory: Denies: Shortness of Breath Cardiovascular: Denies: Chest Pain GI/Abdominal: Reports: Abdominal Pain. Denies: Diarrhea, Nausea, Vomiting Musculoskeletal: Reports: No Symptoms Skin: Denies: Rash Neurological: Reports: No Symptoms ED EXAM, GI/ABD - Physical Exam Exam: See Below General Appearance: Alert, No Apparent Distress Head: Atraumatic Neck: Supple Respiratory/Chest: No Respiratory Distress, Lungs Clear, Normal Breath Sounds Cardiovascular: Regular Rate, Rhythm Extremities: Normal Inspection Neurological: Alert, No Motor/Sensory Deficits Skin Exam: Dry, Normal Color Course - Vital Signs Last Recorded V/S: Last Vital Signs Temp 97.9 F 01/25/20 08:51 Pulse 87 01/25/20 11:44 Resp 18 01/25/20 11:44 BP 125/86 01/25/20 08:51 Pulse Ox 96 01/25/20 11:44 - Orders/Labs/Meds Labs: Laboratory Tests 01/25/20 01/25/20 01/25/20 Range/Units 09:48 09:48 09:48 WBC 12.89 H (3.98-10.04) K/mm3 RBC 4.49 (3.98-5.22) M/mm3 Hgb 12.4 (11.2-15.7) gm/dl Hct 38.1 (34.1-44.9) % MCV 84.9 (79.4-94.8) fl MCH 27.6 (25.6-32.2) pg MCHC 32.5 (32.2-35.5) g/dl RDW Std Deviation 43.2 (36.4-46.3) fL Plt Count 350 (182-369) K/mm3 MPV 10.3 (9.4-12.3) fl Neut % (Auto) 81.1 H (34.0-71.1) % Lymph % (Auto) 10.8 L (19.3-51.7) % [place] % (Auto) 7.1 (4.7-12.5) % Eos % (Auto) 0.4 L (0.7-5.8) Baso % (Auto) 0.2 (0.1-1.2) % Neut # (Auto) 10.47 H (1.56-6.13) K/mm3 Lymph # (Auto) 1.39 (1.18-3.74) K/mm3 [place] # (Auto) 0.91 H (0.24-0.36) K/mm3 Eos # (Auto) 0.05 (0.04-0.36) K/mm3 Baso # (Auto) 0.02 (0.01-0.08) K/mm3 Manual Slide Review Normal smear Sodium 137 (136-145) mEq/L Potassium 3.5 (3.5-5.1) mEq/L Chloride 101 (98-107) mEq/L Carbon Dioxide 25 (21-32) mEq/L Anion Gap 14.5 (5-15) BUN 12 (7-18) mg/dL Creatinine 0.7 (0.55-1.02) mg/dL Est Cr Clr Drug Dosing 76.58 mL/min Estimated GFR (MDRD) > 60 (>60) mL/min BUN/Creatinine Ratio 17.1 (14-18) Glucose 112 H (74-106) mg/dL Calcium 8.5 (8.5-10.1) mg/dL Total Bilirubin 1.3 H (0.2-1.0) mg/dL AST 13 L (15-37) U/L ALT 25 (14-59) U/L Alkaline Phosphatase 91 (46-116) U/L C-Reactive Protein 7.3 H* (<1.0) mg/dL Total Protein 7.5 (6.4-8.2) g/dl Albumin 3.3 L (3.4-5.0) g/dl Globulin 4.2 gm/dL Albumin/Globulin Ratio 0.8 L (1-2) - Re-Assessments/Exams Free Text/Narrative Re-Assessment/Exam: 01/27/20 07:23 WBC, CRP mildly elevated, will start on levaquin and flagyl. Departure - Departure Time of Disposition: 11:29 Disposition: Home, Self-Care 01 Condition: Fair Clinical Impression: Diverticulitis - Discharge Information Prescriptions: metroNIDAZOLE [Flagyl] 500 mg PO Q8H #20 tab Levofloxacin [Levaquin] 500 mg PO DAILY #10 tablet Instructions: Abdominal Pain, Adult, [id number] Referrals: Tank Ugalde MD [Primary Care Provider] - Forms: ED Department Discharge Additional Instructions: Clear liquids and bland diet as tolerated. Levaquin 500 mg daily for 10 days. Flagyl 500 mg 3 times daily for 1 week. Follow up clinic next week for recheck. Return to ED as needed. Sepsis Event Note (ED) - Evaluation Sepsis Screening Result: No Definite Risk
[2020-01-25 11:52] VITALS: PULSE 87
== END 2020-01-25 11:44 | disposition home or self-care (01) ==
LOC: JD.ED 08:40
DX: K57.92 Diverticulitis of intestine, part unspecified, without perforation or abscess without bleeding (principal); I10 Essential (primary) hypertension; E66.9 Obesity, unspecified; R56.9 Unspecified convulsions; Z68.41 Body mass index [BMI] 40.0-44.9, adult; Z90.49 Acquired absence of other specified parts of digestive tract; Z79.899 Other long term (current) drug therapy
CPT/HCPCS: 36415; 74019; 80053; 85025; 86140; 99283; 99284-25

== ENCOUNTER 2020-01-30 23:32 | Emergency (ER) | payer MEDICAID ==
[2020-01-30 23:43] VITALS: BP 136/98; PULSE 80
[2020-01-30] MEDS ORDERED: Sodium Chloride 0.9% 10 ML Syringe FLUSH PRN (23:55)
[2020-01-30] MEDS ORDERED: methylPREDNISolone Sodium Succinate 125 MG/2 ML SDV IVPUSH ONE (23:56)
[2020-01-30] MEDS ORDERED: diphenhydrAMINE 50 MG/ML SDV IVPUSH ONE (23:56)
[2020-01-30] MEDS ORDERED: Famotidine 20 MG/2 ML SDV IVPUSH ONE (23:56)
--- NOTE | 2020-01-31 00:01 | EDM.PDOC ---
ED HPI GENERAL MEDICAL PROBLEM - General Chief Complaint: Skin Complaint Stated Complaint: RASH Time Seen by Provider: 01/30/20 23:50 Source of Information: Reports: Patient History Limitations: Reports: No Limitations - History of Present Illness INITIAL COMMENTS - FREE TEXT/NARRATIVE: The patient presents with a rash and an allergic reaction. The patient is on levaquin and flagly for diverticulitis. She said tonight she started to itch so she took a warm bath and when she came out she had hives to her arms, abdomen, chest and back. She has no swelling in her mouth. She has no trouble breathing. She has no abdominal pain, nausea or vomiting. Onset: Gradual Duration: Hour(s): Location: Reports: Chest, Back, Upper Extremity, Left, Upper Extremity, Right Quality: Reports: Burning Severity: Moderate Improves with: Reports: None Worsens with: Reports: None Associated Symptoms: Reports: Rash. Denies: Chest Pain, Cough, Fever/Chills, Headaches, Nausea/Vomiting, Shortness of Breath - Related Data Allergies Allergy/AdvReac Type Severity Reaction Status Date / Time No Known Allergies Allergy Verified 01/30/20 23:43 Home Meds: Home Meds levETIRAcetam [Keppra] 1,000 mg PO BEDTIME 08/19/13 [History] levETIRAcetam [Keppra] 1,000 mg PO QAM 08/19/13 [History] Sennosides [Senna] 2 tab PO DAILY PRN #10 tab 10/17/19 [Rx] Levofloxacin [Levaquin] 500 mg PO DAILY #10 tablet 01/25/20 [Rx] metroNIDAZOLE [Flagyl] 500 mg PO Q8H #20 tab 01/25/20 [Rx] predniSONE [Prednisone] 40 mg PO DAILY #10 tablet 01/31/20 [Rx] Past Medical History HEENT History: Reports: Impaired Vision Other HEENT History: Wears glasses Cardiovascular History: Reports: Hypertension Respiratory History: Reports: None Gastrointestinal History: Reports: Diverticulosis Other Gastrointestinal History: diverticulitis Genitourinary History: Reports: UTI, Recurrent 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 Psychiatric History: Reports: None Endocrine/Metabolic History: Reports: Obesity/BMI 30+ Hematologic History: Reports: None Immunologic History: Reports: None Oncologic (Cancer) History: Reports: None Dermatologic History: Reports: Eczema - Infectious Disease History Infectious Disease History: Reports: Chicken Pox, Measles, Mumps - Past Surgical History Head Surgeries/Procedures: Reports: None HEENT Surgical History: Reports: Oral Surgery GI Surgical History: Reports: Cholecystectomy Social & Family History - Family History Family Medical History: Noncontributory - Tobacco Use Tobacco Use Status *Q: Never Tobacco User Second Hand Smoke Exposure: No - Caffeine Use Caffeine Use: Reports: None - Recreational Drug Use Recreational Drug Use: No - Living Situation & Occupation Living situation: Reports: Single, with Family (Mother) Occupation: Disabled ED ROS GENERAL - Review of Systems Review Of Systems: See Below Constitutional: Reports: No Symptoms HEENT: Reports: No Symptoms Respiratory: Reports: No Symptoms Cardiovascular: Reports: No Symptoms Endocrine: Reports: No Symptoms GI/Abdominal: Reports: No Symptoms : Reports: No Symptoms Musculoskeletal: Reports: No Symptoms Skin: Reports: Rash, Urticaria ED EXAM, SKIN/RASH Exam: See Below Exam Limited By: No Limitations General Appearance: Alert, No Apparent Distress Ears: Normal External Exam Nose: Normal Inspection Head: Atraumatic, Normocephalic Neck: Normal Inspection Respiratory/Chest: No Respiratory Distress, Lungs Clear, Normal Breath Sounds Cardiovascular: Regular Rate, Rhythm, No Edema, No Murmur GI/Abdominal: Soft, Non-Tender, No Organomegaly, No Mass Neurological: Alert, Oriented, No Motor/Sensory Deficits Skin: Rash (Urticaria to both arms, chest, abdomen and back) Course - Vital Signs Last Recorded V/S: Last Vital Signs Temp 97.9 F 01/30/20 23:40 Pulse 80 01/30/20 23:40 Resp 20 01/30/20 23:40 BP 136/98 H 01/30/20 23:40 Pulse Ox 98 01/30/20 23:40 - Orders/Labs/Meds Orders: Active Orders 24 hr Category Date Time Status Peripheral IV Care [RC] . DIRECTED Care 01/30/20 23:55 Active Sodium Chloride 0.9% [Saline Flush] Med 01/30/20 23:55 Active 10 ml FLUSH ASDIRECTED PRN Peripheral IV Insertion Adult [OM.PC] Routine Oth 01/30/20 23:55 Ordered Medication Orders Sodium Chloride (Saline Flush) 10 ml FLUSH ASDIRECTED PRN PRN Reason: Keep Vein Open Last Admin: 01/31/20 00:05 Dose: 10 ml Documented by: MARLENE Meds: Medications Generic Name Dose Route Start Last Admin Trade Name Nai PRN Reason Stop Dose Admin Sodium Chloride 10 ml 01/30/20 23:55 01/31/20 00:05 Saline Flush FLUSH 10 ml ASDIRECTED PRN Administration Keep Vein Open Discontinued Medications Generic Name Dose Route Start Last Admin Trade Name Freq PRN Reason Stop Dose Admin Diphenhydramine HCl 50 mg 01/30/20 23:56 01/31/20 00:05 Benadryl IVPUSH 01/30/20 23:57 50 mg ONETIME ONE Administration Famotidine 20 mg 01/30/20 23:56 01/31/20 00:05 Pepcid IVPUSH 01/30/20 23:57 20 mg ONETIME ONE Administration Methylprednisolone Sodium Succinate 125 mg 01/30/20 23:56 01/31/20 00:05 Solu-Medrol IVPUSH 01/30/20 23:57 125 mg ONETIME ONE Administration - Re-Assessments/Exams Free Text/Narrative Re-Assessment/Exam: 01/31/20 00:00 I ordered an IV saline lock, solu-medrol 125mg IV, pepcid 20mg IV and benadryl 50mg IV. Departure - Departure Time of Disposition: 00:35 Disposition: Home, Self-Care 01 Condition: Good Clinical Impression: Allergic drug reaction Qualifiers: Encounter type: initial encounter Qualified Code(s): T78.40XA - Allergy, unspecified, initial encounter - Discharge Information *PRESCRIPTION DRUG MONITORING PROGRAM REVIEWED*: Not Applicable *COPY OF PRESCRIPTION DRUG MONITORING REPORT IN PATIENT HERMINIA: Not Applicable Prescriptions: predniSONE [Prednisone] 40 mg PO DAILY #10 tablet Referrals: Tank Ugalde MD [Primary Care Provider] - 2 Days Forms: ED Department Discharge Additional Instructions: Do not take the flagyl or levaquin. You reacted to one of them. Take the prednisone daily for 5 days. Take pepcid daily for 5 days. Take benadryl 50mg every 6 hours as needed for allergy symptoms. Call your doctor tomorrow and let him know what happened and see if he wants a different antibiotic for your diverticulitis. Please return if you are worse. Sepsis Event Note (ED) - Evaluation Sepsis Screening Result: No Definite Risk - Focused Exam Vital Signs: Vital Signs Temp Pulse Resp BP Pulse Ox 01/30/20 23:40 97.9 F 80 20 136/98 H 98 - My Orders Last 24 Hours: My Active Orders 01/30/20 23:55 Peripheral IV Care [RC] . DIRECTED Sodium Chloride 0.9% [Saline Flush] 10 ml FLUSH ASDIRECTED PRN Peripheral IV Insertion Adult [OM.PC] Routine - Assessment/Plan Last 24 Hours: My Active Orders 01/30/20 23:55 Peripheral IV Care [RC] . DIRECTED Sodium Chloride 0.9% [Saline Flush] 10 ml FLUSH ASDIRECTED PRN Peripheral IV Insertion Adult [OM.PC] Routine
== END 2020-01-31 00:50 | disposition home or self-care (01) ==
LOC: JD.ED 23:32
DX: L50.0 Allergic urticaria (principal); T36.8X5A Adverse effect of other systemic antibiotics, initial encounter; T37.3X5A Adverse effect of other antiprotozoal drugs, initial encounter; I10 Essential (primary) hypertension; R56.9 Unspecified convulsions; E66.9 Obesity, unspecified; Z79.899 Other long term (current) drug therapy
CPT/HCPCS: 96374; 96375; 99283; 99283-25; J1200; J2930; J3490

== ENCOUNTER 2020-01-31 19:30 | Emergency (ER) | payer MEDICAID ==
[2020-01-31 20:14] VITALS: BP 153/95; PULSE 89
[2020-01-31] MEDS ORDERED: diphenhydrAMINE 50 MG/ML SDV IM ONE (21:48)
--- NOTE | 2020-01-31 21:55 | EDM.PDOC ---
ED HPI GENERAL MEDICAL PROBLEM - General Chief Complaint: Skin Complaint Stated Complaint: BODY RASH Time Seen by Provider: 01/31/20 21:31 Source of Information: Reports: Patient, RN Notes Reviewed History Limitations: Reports: No Limitations - History of Present Illness INITIAL COMMENTS - FREE TEXT/NARRATIVE: Patient is a 45-year-old female who presents to the ED for evaluation of her allover body rash. She was seen in this ER yesterday, treated with IV Solu- Medrol, Benadryl, Pepcid for management. And sent home with prednisone. She states that she was unable to fill prednisone until later this afternoon, she was use only subsequently taken 1 dose of this. She is still complaining of a rash that is all over her body, that is very itchy. She is not taken any other medications for this. She is not having any difficulty breathing. Patient denies any other sick-like symptoms, fever/chills, cough, nausea/vomiting/diarrhea. - Related Data Allergies Allergy/AdvReac Type Severity Reaction Status Date / Time No Known Allergies Allergy Verified 01/31/20 20:14 Home Meds: Home Meds levETIRAcetam [Keppra] 1,000 mg PO BEDTIME 08/19/13 [History] levETIRAcetam [Keppra] 1,000 mg PO QAM 08/19/13 [History] Sennosides [Senna] 2 tab PO DAILY PRN #10 tab 10/17/19 [Rx] Levofloxacin [Levaquin] 500 mg PO DAILY #10 tablet 01/25/20 [Rx] metroNIDAZOLE [Flagyl] 500 mg PO Q8H #20 tab 01/25/20 [Rx] predniSONE [Prednisone] 40 mg PO DAILY #10 tablet 01/31/20 [Rx] Past Medical History HEENT History: Reports: Impaired Vision Other HEENT History: Wears glasses Cardiovascular History: Reports: Hypertension Respiratory History: Reports: None Gastrointestinal History: Reports: Diverticulosis Other Gastrointestinal History: diverticulitis Genitourinary History: Reports: UTI, Recurrent 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 Psychiatric History: Reports: None Endocrine/Metabolic History: Reports: Obesity/BMI 30+ Hematologic History: Reports: None Immunologic History: Reports: None Oncologic (Cancer) History: Reports: None Dermatologic History: Reports: Eczema - Infectious Disease History Infectious Disease History: Reports: Chicken Pox, Measles, Mumps - Past Surgical History Head Surgeries/Procedures: Reports: None HEENT Surgical History: Reports: Oral Surgery GI Surgical History: Reports: Cholecystectomy Social & Family History - Family History Family Medical History: Noncontributory - Tobacco Use Tobacco Use Status *Q: Never Tobacco User - Caffeine Use Caffeine Use: Reports: Soda - Recreational Drug Use Recreational Drug Use: No - Living Situation & Occupation Living situation: Reports: Single, with Family (Mother) Occupation: Disabled ED ROS GENERAL - Review of Systems Review Of Systems: Comprehensive ROS is negative, except as noted in HPI. ED EXAM, SKIN/RASH Exam: See Below Exam Limited By: No Limitations General Appearance: Alert, WD/WN, No Apparent Distress Respiratory/Chest: No Respiratory Distress, Lungs Clear, Normal Breath Sounds, No Accessory Muscle Use, Chest Non-Tender Cardiovascular: Normal Peripheral Pulses, Regular Rate, Rhythm, No Murmur Peripheral Pulses: 2+: Radial (L), Radial (R) GI/Abdominal: Normal Bowel Sounds, Soft, Non-Tender, No Distention, No Mass Extremities: Normal Inspection, Normal Capillary Refill Neurological: Alert, Oriented, Normal Cognition, No Motor/Sensory Deficits Psychiatric: Normal Affect, Normal Mood Skin: Warm, Dry, Intact, Normal Color, Erythema (Multiple raised, erythematous hive-like lesions throughout the entire body corporis.) Course - Vital Signs Last Recorded V/S: Last Vital Signs Temp 98.6 F 01/31/20 20:06 Pulse 89 01/31/20 20:06 Resp 20 01/31/20 20:06 BP 153/95 H 01/31/20 20:06 Pulse Ox 97 01/31/20 20:06 - Orders/Labs/Meds Meds: Medications Discontinued Medications Generic Name Dose Route Start Last Admin Trade Name Nai PRN Reason Stop Dose Admin Diphenhydramine HCl 50 mg 01/31/20 21:48 Benadryl IM 01/31/20 21:49 ONETIME ONE - Re-Assessments/Exams Free Text/Narrative Re-Assessment/Exam: 01/31/20 21:53 Patient presents to the ED for her skin rash, for tonight's purposes she will get a repeat injection of IM Benadryl, with strict recommendations to continue her prednisone as prescribed. Patient is okay with this plan. Departure - Departure Time of Disposition: 21:53 Disposition: Home, Self-Care 01 Condition: Good Clinical Impression: Allergic reaction Qualifiers: Encounter type: initial encounter Qualified Code(s): T78.40XA - Allergy, unspecified, initial encounter - Discharge Information *PRESCRIPTION DRUG MONITORING PROGRAM REVIEWED*: No *COPY OF PRESCRIPTION DRUG MONITORING REPORT IN PATIENT HERMINIA: No Instructions: Hives, [id number] Referrals: Tank Ugalde MD [Primary Care Provider] - Additional Instructions: You were seen in the ER today for your continuing body rash. You were given a injection of IM Benadryl for further symptomatic relief. You will need to continue your prednisone as previously prescribed. You may take 25 mg or 1 tablet of Benadryl every 4 hours as needed for further symptomatic relief. You may also cut this dose in half if you feel that the full tablet of Benadryl makes you too tired. You may use ice packs to the areas to help relieve some of the swelling. Please return to the ER at any time if your symptoms change or worsen. Sepsis Event Note (ED) - Evaluation Sepsis Screening Result: No Definite Risk - Focused Exam Vital Signs: Vital Signs Temp Pulse Resp BP Pulse Ox 01/31/20 20:06 98.6 F 89 20 153/95 H 97
== END 2020-01-31 22:30 | disposition home or self-care (01) ==
LOC: JD.ED 19:30
DX: T78.40XA Allergy, unspecified, initial encounter (principal); I10 Essential (primary) hypertension; R56.9 Unspecified convulsions; E66.9 Obesity, unspecified; Z79.899 Other long term (current) drug therapy
CPT/HCPCS: 96372; 99283; J1200; 99282

== ENCOUNTER 2020-03-01 19:12 | Emergency (ER) | payer MEDICAID ==
--- NOTE | 2020-03-01 19:55 | EDM.PDOC ---
ED HPI GENERAL MEDICAL PROBLEM - General Chief Complaint: Abdominal Pain Stated Complaint: ABDOMINAL PAIN Time Seen by Provider: 03/01/20 19:19 Source of Information: Reports: Patient History Limitations: Reports: No Limitations - History of Present Illness INITIAL COMMENTS - FREE TEXT/NARRATIVE: This is a 45-year-old female. She felt like she has been constipated all day but she says she knows she is not and she actually had a bowel movement this afternoon and no blood or dark looking stool or black stool was noted. Around 8:30 PM she started having some left lower quadrant abdominal pain. She says she has diverticulitis. She has had 8-9 episodes of diverticulitis just this year. So she knows this diverticulitis. Any urinary symptoms. She denies any fever or chills. The pain is confined to the left lower quadrant. She denies any exposure to Covid she has had no cough no nausea no vomiting no headache no congestion no body aches no shortness of breath. Did let me know that she had an allergic reaction to either Flagyl or levofloxacin the last time she had diverticulitis it included a rash all over her body that was very itchy. She has no penicillin allergies. Abdominal Pain Score (Numeric/FACES): 3 - Related Data Allergies Allergy/AdvReac Type Severity Reaction Status Date / Time levofloxacin Allergy Hives Verified 03/01/20 19:28 metronidazole Allergy Hives Verified 03/01/20 19:28 Home Meds: Home Meds levETIRAcetam [Keppra] 1,000 mg PO BID 08/19/13 [History] Amoxicillin/Potassium Clav [Augmentin 875-125 Tablet] 1 each PO BID #20 tablet 03/01/20 [Rx] Hydrocodone/Acetaminophen [Hydrocodon-Acetaminophen 5-325] 1 each PO Q6H PRN #15 tablet 03/01/20 [Rx] Ondansetron [Zofran] 4 mg PO Q6H PRN #15 tab 03/01/20 [Rx] Past Medical History HEENT History: Reports: Impaired Vision Other HEENT History: Wears glasses Cardiovascular History: Reports: Hypertension Respiratory History: Reports: None Gastrointestinal History: Reports: Diverticulosis Other Gastrointestinal History: diverticulitis Genitourinary History: Reports: UTI, Recurrent DELICATESSEN MANAGER History: Reports: None Musculoskeletal History: Reports: Arthritis Other Musculoskeletal History: "calcification tendonitis." Neurological History: Reports: Seizure Other Neuro History: Seizure-2 weeks ago. Psychiatric History: Reports: None Endocrine/Metabolic History: Reports: Obesity/BMI 30+ Hematologic History: Reports: None Immunologic History: Reports: None Oncologic (Cancer) History: Reports: None Dermatologic History: Reports: Eczema - Infectious Disease History Infectious Disease History: Reports: Chicken Pox, Measles, Mumps - Past Surgical History Head Surgeries/Procedures: Reports: None HEENT Surgical History: Reports: Oral Surgery Cardiovascular Surgical History: Reports: None GI Surgical History: Reports: Cholecystectomy Female Surgical History: Reports: None Endocrine Surgical History: Reports: None Neurological Surgical History: Reports: None Social & Family History - Family History Family Medical History: No Pertinent Family History - Caffeine Use Caffeine Use: Reports: Soda - Recreational Drug Use Recreational Drug Use: No - Living Situation & Occupation Living situation: Reports: Single, with Family (Mother) Occupation: Disabled ED ROS GENERAL - Review of Systems Review Of Systems: See Below Constitutional: Denies: Fever, Chills, Fatigue HEENT: Reports: No Symptoms Respiratory: Denies: Shortness of Breath, Cough Cardiovascular: Denies: Chest Pain Endocrine: Reports: No Symptoms GI/Abdominal: Reports: Abdominal Pain. Denies: Black Stool, Bloody Stool, Constipation, Diarrhea, Nausea, Vomiting : Denies: Dysuria Musculoskeletal: Reports: Back Pain Skin: Reports: No Symptoms Neurological: Reports: No Symptoms Psychiatric: Reports: No Symptoms Hematologic/Lymphatic: Reports: No Symptoms ED EXAM, GI/ABD - Physical Exam Exam: See Below Exam Limited By: No Limitations General Appearance: Alert, WD/WN, No Apparent Distress Eyes: Bilateral: Normal Appearance Ears: Normal External Exam Nose: Other (He denies any symptoms) Throat/Mouth: Normal Voice, No Airway Compromise Head: Normocephalic Neck: Supple Respiratory/Chest: No Respiratory Distress, Lungs Clear, Normal Breath Sounds Cardiovascular: Regular Rate, Rhythm, No Murmur GI/Abdominal Exam: Soft, No Distention, Other (Is no tenderness in the right lower quadrant right upper quadrant and left upper quadrant but she is tender deep in the left lower quadrant. There is no masses no rebound no peritoneal signs. Bowel sounds are decreased. The patient has an elevated BMI) Back Exam: Full Range of Motion Extremities: Normal Inspection, Normal Range of Motion Neurological: Alert, Oriented Psychiatric: Normal Affect, Normal Mood Skin Exam: Warm, Dry Course - Vital Signs Last Recorded V/S: Last Vital Signs Temp 98.1 F 03/01/20 19:24 Pulse Resp 18 03/01/20 19:24 BP 145/90 H 03/01/20 19:24 Pulse Ox 100 03/01/20 19:24 - Orders/Labs/Meds Orders: Active Orders 24 hr Category Date Time Status Abdomen 2V AP Flat Upright [CR] Stat Exams 03/01/20 19:50 Taken Abdomen Pelvis w Cont [CT] Stat Exams 03/01/20 21:05 Ordered Acetaminophen/HYDROcodone [Clinton 325-5 MG] Med 03/01/20 23:50 Once 2 tab PO ONETIME ONE Sodium Chloride 0.9% [Normal Saline] 1,000 ml Med 03/01/20 20:00 Active IV ASDIRECTED cefTRIAXone [Rocephin] 1 gm Med 03/01/20 23:48 Ordered Sodium Chloride 0.9% [Normal Saline] 100 ml IV ONETIME Medication Orders Sodium Chloride (Normal Saline) 1,000 mls @ 1,000 mls/hr IV ASDIRECTED ZENA Last Admin: 03/01/20 20:11 Dose: 1,000 mls/hr Documented by: IBETH Ceftriaxone Sodium 1 gm/ (Sodium Chloride) 100 mls @ 200 mls/hr IV ONETIME ONE Stop: 03/02/20 00:17 Labs: Laboratory Tests 03/01/20 03/01/20 03/01/20 Range/Units 20:01 20:05 20:05 WBC 10.45 H (3.98-10.04) K/mm3 RBC 4.46 (3.98-5.22) M/mm3 Hgb 12.4 (11.2-15.7) gm/dl Hct 38.9 (34.1-44.9) % MCV 87.2 (79.4-94.8) fl MCH 27.8 (25.6-32.2) pg MCHC 31.9 L (32.2-35.5) g/dl RDW Std Deviation 43.5 (36.4-46.3) fL Plt Count 380 H (182-369) K/mm3 MPV 10.1 (9.4-12.3) fl Neut % (Auto) 75.9 H (34.0-71.1) % Lymph % (Auto) 15.1 L (19.3-51.7) % [place] % (Auto) 7.4 (4.7-12.5) % Eos % (Auto) 1.2 (0.7-5.8) Baso % (Auto) 0.2 (0.1-1.2) % Neut # (Auto) 7.93 H (1.56-6.13) K/mm3 Lymph # (Auto) 1.58 (1.18-3.74) K/mm3 [place] # (Auto) 0.77 H (0.24-0.36) K/mm3 Eos # (Auto) 0.13 (0.04-0.36) K/mm3 Baso # (Auto) 0.02 (0.01-0.08) K/mm3 Manual Slide Review Normal smear Sodium 140 (136-145) mEq/L Potassium 3.6 (3.5-5.1) mEq/L Chloride 102 (98-107) mEq/L Carbon Dioxide 28 (21-32) mEq/L Anion Gap 13.6 (5-15) BUN 11 (7-18) mg/dL Creatinine 0.8 (0.55-1.02) mg/dL Est Cr Clr Drug Dosing 67.01 mL/min Estimated GFR (MDRD) > 60 (>60) mL/min BUN/Creatinine Ratio 13.8 L (14-18) Glucose 97 (74-106) mg/dL Calcium 8.9 (8.5-10.1) mg/dL Total Bilirubin 0.5 (0.2-1.0) mg/dL AST 14 L (15-37) U/L ALT 25 (14-59) U/L Alkaline Phosphatase 87 (46-116) U/L C-Reactive Protein 1.6 H* (<1.0) mg/dL Total Protein 7.6 (6.4-8.2) g/dl Albumin 3.6 (3.4-5.0) g/dl Globulin 4.0 gm/dL Albumin/Globulin Ratio 0.9 L (1-2) Urine Color Yellow (Yellow) Urine Appearance Clear (Clear) Urine pH 6.0 (5.0-8.0) Ur Specific Manning > or = 1.030 (1.005-1.030) Urine Protein Negative (Negative) Urine Glucose (UA) Negative (Negative) Urine Ketones Negative (Negative) Urine Occult Blood 1+ H (Negative) Urine Nitrite Negative (Negative) Urine Bilirubin Negative (Negative) Urine Urobilinogen 0.2 (0.2-1.0) Ur Leukocyte Esterase Negative (Negative) Urine RBC 0-5 (0-5) /hpf Urine WBC 0-5 (0-5) /hpf Ur Squamous Epith Cells 5-10 H (0-5) /hpf Urine Bacteria Few (FEW) /hpf Urine Mucus Few (FEW) /hpf Meds: Medications Generic Name Dose Route Start Last Admin Trade Name Freq PRN Reason Stop Dose Admin Sodium Chloride 1,000 mls @ 1,000 mls/hr 03/01/20 20:00 03/01/20 20:11 Normal Saline IV 1,000 mls/hr ASDIRECTED ZENA Administration Ceftriaxone Sodium 1 gm/ 100 mls @ 200 mls/hr 03/01/20 23:48 Sodium Chloride IV 03/02/20 00:17 ONETIME ONE Discontinued Medications Generic Name Dose Route Start Last Admin Trade Name Freq PRN Reason Stop Dose Admin Amoxicillin/Clavulanate Potassium 1 tab 03/01/20 23:49 Augmentin 875 Mg/125 Mg PO 03/01/20 23:50 ONETIME ONE - Radiology Interpretation Free Text/Narrative:: X-Rays of the abdomen do not show any acute intra-abdominal pathology. I spoke to the patient regarding her CT scan of her abdomen she does have a thickened sigmoid colon with suggestion of diverticulitis at the acute proximal sigmoid colon. There does not appear to be any other acute findings. - Re-Assessments/Exams Free Text/Narrative Re-Assessment/Exam: 03/01/20 21:09 Spoke to the patient regarding getting a CT scan of her abdomen with oral contrast to be absolutely certain this is diverticulitis. Her lab work would suggest that is what is going on. Want to get a CT scan her lab work is not so out of control that I believe will be able to treat her at home with antibiotics and something for pain. 03/01/20 23:51 I spoke to the patient regarding her CT scan findings. Since she appears to have a reaction to Flagyl and levofloxacin we will put her on some Augmentin and I will give her some Rocephin IV in the ER. She is to stay on a bland diet with lots of fluids and take probiotics and lots of fiber. Patient states she understands. Departure - Departure Time of Disposition: 23:52 Disposition: Home, Self-Care 01 Condition: Fair Clinical Impression: Acute diverticulitis, Left lower quadrant abdominal pain - Discharge Information *PRESCRIPTION DRUG MONITORING PROGRAM REVIEWED*: Yes *COPY OF PRESCRIPTION DRUG MONITORING REPORT IN PATIENT HERMINIA: No Prescriptions: Amoxicillin/Potassium Clav [Augmentin 875-125 Tablet] 1 each PO BID #20 tablet Hydrocodone/Acetaminophen [Hydrocodon-Acetaminophen 5-325] 1 each PO Q6H PRN #15 tablet PRN Reason: Pain Ondansetron [Zofran] 4 mg PO Q6H PRN #15 tab PRN Reason: Nausea Instructions: Diverticulitis, [id number] Referrals: Tank Ugalde MD [Primary Care Provider] - Forms: ED Department Discharge Additional Instructions: You were seen in the ER for left lower quadrant abdominal pain and found to have diverticulitis, we are going to place you on some Augmentin that you take twice a day and some medication to help with the pain, you need to drink lots of fluids stay on a bland diet with lots of fiber and get some probiotics to help with the antibiotics, you need to follow-up with your family doctor this coming week for recheck or return to the ER if your symptoms worsen you develop a fever or you have blood in your stool. Sepsis Event Note (ED) - Evaluation Sepsis Screening Result: No Definite Risk - Focused Exam Vital Signs: Vital Signs Temp Resp BP Pulse Ox 03/01/20 19:24 98.1 F 18 145/90 H 100 - My Orders Last 24 Hours: My Active Orders 03/01/20 19:50 Abdomen 2V AP Flat Upright [CR] Stat 03/01/20 20:00 Sodium Chloride 0.9% [Normal Saline] 1,000 ml IV ASDIRECTED 03/01/20 21:05 Abdomen Pelvis w Cont [CT] Stat 03/01/20 23:48 cefTRIAXone [Rocephin] 1 gm Sodium Chloride 0.9% [Normal Saline] 100 ml IV ONETIME 03/01/20 23:50 Acetaminophen/HYDROcodone [Clinton 325-5 MG] 2 tab PO ONETIME ONE - Assessment/Plan Last 24 Hours: My Active Orders 03/01/20 19:50 Abdomen 2V AP Flat Upright [CR] Stat 03/01/20 20:00 Sodium Chloride 0.9% [Normal Saline] 1,000 ml IV ASDIRECTED 03/01/20 21:05 Abdomen Pelvis w Cont [CT] Stat 03/01/20 23:48 cefTRIAXone [Rocephin] 1 gm Sodium Chloride 0.9% [Normal Saline] 100 ml IV ONETIME 03/01/20 23:50 Acetaminophen/HYDROcodone [Clinton 325-5 MG] 2 tab PO ONETIME ONE
[2020-03-01] MEDS ORDERED: Sodium Chloride 0.9% 1,000 ML IV SCH (20:00)
[2020-03-01] MEDS ORDERED: cefTRIAXone 1 GM in Sodium Chloride 0.9% 100 ML IV ONE (23:48)
[2020-03-01] MEDS ORDERED: Amoxicillin/Clavulanate K 875-125 MG Tab PO ONE (23:49)
[2020-03-01] MEDS ORDERED: Acetaminophen/HYDROcodone 325-5 MG Tab PO ONE (23:50)
[2020-03-02 00:40] VITALS: BP 141/88; PULSE 82
--- NOTE | 2020-03-04 08:52 | CR ---
PROCEDURE INFORMATION: Exam: XR Abdomen, 3 or More Views Exam date and time: 03/01/2020 8:15 PM Age: 45 years old Clinical indication: Patient HX: SX HX, rahel. Abdominal pain onset 1829 today; Additional info: Prior exams scanned for your review TECHNIQUE: Imaging protocol: XR of the abdomen. Views: 3 or more views. COMPARISON: DX Abdomen 2V AP Flat Upright 01/25/2020 9:49 AM FINDINGS: Tubes, catheters and devices: There are surgical clips projecting over gallbladder fossa. Gastrointestinal tract: Gas and stool are present in the colon. No dilated bowel loops. Intraperitoneal space: Normal. No free air. Bones/joints: Unremarkable for age. IMPRESSION: 1. No sign of acute intra-abdominal pathology. 2. No significant interval change when compared to the DX Abdomen 2V AP Flat Upright 01/25/2020 9:49 AM. Thank you for allowing us to participate in the care of your patient. Dictated and Authenticated by: Felix Conrad MD 03/01/2020 9:52 PM Central Time ([place] & [place]) NICOLETTE
--- NOTE | 2020-03-04 08:55 | CT ---
PROCEDURE INFORMATION: Exam: CT Abdomen And Pelvis Without Contrast Exam date and time: 03/01/2020 10:42 PM Age: 45 years old Clinical indication: Patient HX: Patient only had oral contrast, finished 200cc out of 400cc of breeza could not tolerate the rest, no iv contrast as per Doctor Lang. Abdominal pain SX: Cholecystectomy HX diverticulitis; Additional info: Prior reports scanned in for your review TECHNIQUE: Imaging protocol: Computed tomography of the abdomen and pelvis without contrast. Radiation optimization: All CT scans at this facility use at least one of these dose optimization techniques: automated exposure control; mA and/or kV adjustment per patient size (includes targeted exams where dose is matched to clinical indication); or iterative reconstruction. Other contrast: Oral, GASTROGRAFIN, PATIENT ONLY DRANK 200CC NOT THE FULL 400CC AMOUNT OF BREEZA; COMPARISON: CT Abdomen Pelvis w Cont 09/21/2019 5:04 PM FINDINGS: Lungs: No acute pathologic findings at lung bases. Liver: Liver is normal. Gallbladder and bile ducts: Gallbladder is surgically absent. No biliary ductal dilation. Pancreas: Pancreas is normal. Spleen: Spleen is normal. Adrenal glands: No adrenal mass. Kidneys and ureters: No ureteral calculus. Right kidney is normal. Left kidney is normal. No hydronephrosis. Stomach and bowel: Distal small bowel loops and colon are unopacified with enteric contrast. No bowel obstruction. There is acute inflammatory stranding/fluid in the pericolic fat adjacent to the thickened proximal sigmoid colonic wall in region of diverticulosis, and prominent dense diverticula, without evidence of colonic perforation or pericolonic abscess. Colonic diverticulosis. Appendix: No evidence of acute appendicitis.Unremarkable appendix. Intraperitoneal space: No pneumoperitoneum. Minimal lower abdominal and pelvic free intraperitoneal fluid. Vasculature: No aortic aneurysm. Lymph nodes: Shotty nonspecific mesenteric, retroperitoneal, and bilateral inguinal lymph nodes present. Urinary bladder: Unremarkable urinary bladder. Reproductive: Unremarkable uterus and bilateral adnexae. Bones/joints: No acute displaced fracture or osseous neoplastic lesion. Soft tissues: Unremarkable. Other findings: Absence of intravenous contrast present decreases exam sensitivity and specificity. Obesity streak artifacts present. IMPRESSION: 1. Acute proximal sigmoid colonic diverticulitis. 2. Remainder of findings described as above. Thank you for allowing us to participate in the care of your patient. Dictated and Authenticated by: Henri Mooney MD 03/02/2020 12:35 AM Central Time ([place]) [place]TTE
== END 2020-03-02 00:44 | disposition home or self-care (01) ==
LOC: JD.ED 19:12
DX: K57.32 Diverticulitis of large intestine without perforation or abscess without bleeding (principal); I10 Essential (primary) hypertension; R56.9 Unspecified convulsions; E66.9 Obesity, unspecified; Z68.41 Body mass index [BMI] 40.0-44.9, adult; Z88.1 Allergy status to other antibiotic agents
CPT/HCPCS: 36415; 74019; 74177; 80053; 81001; 85025; 86140; 96365; 99284; A9270; J0696; J7030; J7050

== ENCOUNTER 2020-04-06 18:10 | Emergency (ER) | payer MEDICAID ==
[2020-04-06 18:17] VITALS: BP 145/72; PULSE 100
[2020-04-06] MEDS ORDERED: Ondansetron 4 MG Tab.DIS PO ONE (19:16)
--- NOTE | 2020-04-06 19:28 | EDM.PDOC ---
ED HPI GENERAL MEDICAL PROBLEM - General Chief Complaint: Respiratory Problem Stated Complaint: [facility] Time Seen by Provider: 04/06/20 18:12 Source of Information: Reports: Patient, RN Notes Reviewed History Limitations: Reports: No Limitations - History of Present Illness INITIAL COMMENTS - FREE TEXT/NARRATIVE: Patient is a 45-year-old female presenting to the emergency department with complaints of an episode of "feeling hot "as well as emesis x1. She was diagnosed with Covid on of last week. States she has had a mild cough since Wednesday of last week. She has felt nauseous for a few days but has had no vomiting. She complains of some intermittent body aches. Denies shortness of breath. States she has not been eating well due to lack of appetite. She has had no known fevers. She is taken no [id number] Tylenol or ibuprofen. Patient is afebrile on triage. Oxygen saturations have been 94 to 95%. She does have a pulse oximeter at home which they just got today as her mom also has Covid. - Related Data Allergies Allergy/AdvReac Type Severity Reaction Status Date / Time levofloxacin Allergy Hives Verified 04/06/20 18:17 metronidazole Allergy Hives Verified 04/06/20 18:17 Home Meds: Home Meds levETIRAcetam [Keppra] 1,000 mg PO BID 08/19/13 [History] Past Medical History HEENT History: Reports: Impaired Vision Other HEENT History: Wears glasses Cardiovascular History: Reports: Hypertension Respiratory History: Reports: None Gastrointestinal History: Reports: Diverticulosis Other Gastrointestinal History: diverticulitis Genitourinary History: Reports: UTI, Recurrent [employer] History: Reports: None Musculoskeletal History: Reports: Arthritis Other Musculoskeletal History: "calcification tendonitis." Neurological History: Reports: Seizure Other Neuro History: Seizure-2 weeks ago. Psychiatric History: Reports: None Endocrine/Metabolic History: Reports: Obesity/BMI 30+ Hematologic History: Reports: None Immunologic History: Reports: None Oncologic (Cancer) History: Reports: None Dermatologic History: Reports: Eczema - Infectious Disease History Infectious Disease History: Reports: Chicken Pox, Measles, Mumps, Novel Coronavirus - Past Surgical History Head Surgeries/Procedures: Reports: None HEENT Surgical History: Reports: Oral Surgery Cardiovascular Surgical History: Reports: None GI Surgical History: Reports: Cholecystectomy Female Surgical History: Reports: None Endocrine Surgical History: Reports: None Neurological Surgical History: Reports: None Social & Family History - Family History Family Medical History: No Pertinent Family History - Tobacco Use Tobacco Use Status *Q: Never Tobacco User Second Hand Smoke Exposure: No - Caffeine Use Caffeine Use: Reports: None - Recreational Drug Use Recreational Drug Use: No - Living Situation & Occupation Living situation: Reports: Single, with Family (Mother) Occupation: Disabled ED ROS GENERAL - Review of Systems Review Of Systems: See Below Constitutional: Denies: Fever, Chills HEENT: Reports: No Symptoms Respiratory: Reports: Cough. Denies: Shortness of Breath, Wheezing, Pleuritic Chest Pain Cardiovascular: Denies: Chest Pain, Lightheadedness, Syncope Endocrine: Reports: No Symptoms GI/Abdominal: Reports: Nausea, Vomiting. Denies: Abdominal Pain, Diarrhea : Reports: No Symptoms Musculoskeletal: Reports: Other (generalized body aches) Skin: Reports: No Symptoms Neurological: Reports: No Symptoms. Denies: Dizziness, Headache Psychiatric: Reports: No Symptoms Hematologic/Lymphatic: Reports: No Symptoms Immunologic: Reports: No Symptoms ED EXAM, GENERAL - Physical Exam Exam: See Below General Appearance: Alert, WD/WN, No Apparent Distress Respiratory/Chest: No Respiratory Distress, Lungs Clear, Normal Breath Sounds, No Accessory Muscle Use, Chest Non-Tender Cardiovascular: Normal Peripheral Pulses, Regular Rate, Rhythm, No Edema, No Gallop, No JVD, No Murmur, No Rub GI/Abdominal: Normal Bowel Sounds, Soft, Non-Tender, No Organomegaly, No Distention, No Abnormal Bruit, No Mass Neurological: Alert, Oriented, CN II-XII Intact, Normal Cognition, Normal Gait, Normal Reflexes, No Motor/Sensory Deficits Psychiatric: Normal Affect, Normal Mood Skin Exam: Warm, Dry, Intact, Normal Color, No Rash Course - Vital Signs Last Recorded V/S: Last Vital Signs Temp 97 F 04/06/20 18:14 Pulse 100 04/06/20 18:14 Resp 18 04/06/20 18:14 BP 145/72 H 04/06/20 18:14 Pulse Ox - Orders/Labs/Meds Orders: Active Orders 24 hr Category Date Time Status Chest 1V Frontal [CR] Stat Exams 04/06/20 19:10 Taken Meds: Medications Discontinued Medications Generic Name Dose Route Start Last Admin Trade Name Freq PRN Reason Stop Dose Admin Ondansetron HCl 4 mg 04/06/20 19:16 04/06/20 19:38 Zofran Odt PO 04/06/20 19:17 4 mg ONETIME ONE Administration - Re-Assessments/Exams Free Text/Narrative Re-Assessment/Exam: Patient is a 45-year-old female presenting to the emergency department with complaints of having a "hot flash "and emesis x1 with a known diagnosis of Covid. She states she has had a mild cough since Wednesday of last week. Has some mild body aches. She has been nauseous but up until today has had no vomiting. She denies shortness of breath. Vital signs in triage are stable. I have ordered a 1 view chest and Zofran 4 mg ODT. Discussed possibility of monoclonal antibody treatment and she declined. 04/06/20 19:56 Chest x-ray shows no acute abnormalities. Patient has been drinking liquids in the ER without difficulty. She states she does have Zofran at home that she can use for nausea. Discussed that she should try to take an adequate amount of fluid. She does have a pulse ox at home so I recommend monitoring her oxygen saturations. Discussed return precautions. Discharge instructions as documented. Departure - Departure Time of Disposition: 19:57 Disposition: Home, Self-Care 01 Condition: Good Clinical Impression: COVID-19 - Discharge Information *PRESCRIPTION DRUG MONITORING PROGRAM REVIEWED*: No *COPY OF PRESCRIPTION DRUG MONITORING REPORT IN PATIENT HERMINIA: No Instructions: COVID-19 Frequently Asked Questions, COVID-19 Referrals: PCP,None [Primary Care Provider] - Forms: ED Department Discharge Additional Instructions: You were seen in the emergency department for evaluation after having an episode of vomiting as well as feeling hot. Chest x-rays were completed in the ER and was found to be normal. While in the ER, you received a dose of Zofran for nausea. Recommend that you ensure you taking an adequate amount of fluid. You may use the Zofran that you have at home as needed every 6 hours for nausea. Monitor your oxygen saturations at home. If you are maintaining an oxygen saturation of 90 or below, you should return to the emergency department for reevaluation. Sepsis Event Note (ED) - Evaluation Sepsis Screening Result: No Definite Risk - Focused Exam Vital Signs: Vital Signs Temp Pulse Resp BP 04/06/20 18:14 97 F 100 18 145/72 H - My Orders Last 24 Hours: My Active Orders 04/06/20 19:10 Chest 1V Frontal [CR] Stat - Assessment/Plan Last 24 Hours: My Active Orders 04/06/20 19:10 Chest 1V Frontal [CR] Stat
--- NOTE | 2020-04-07 10:21 | CR ---
Chest: Portable view of the chest was obtained. Comparison: Previous chest x-ray of 08/20/13. Findings: Heart size and mediastinum are normal. Lungs are clear with no acute parenchymal change. Bony structures are grossly intact. Impression: 1. Nothing acute is seen on portable chest x-ray. Diagnostic code #1
== END 2020-04-06 20:10 | disposition home or self-care (01) ==
LOC: JD.ED 18:10
DX: U07.1 COVID-19 (principal); I10 Essential (primary) hypertension; R56.9 Unspecified convulsions; E66.9 Obesity, unspecified; Z68.42 Body mass index [BMI] 45.0-49.9, adult; Z88.1 Allergy status to other antibiotic agents; Z79.899 Other long term (current) drug therapy
CPT/HCPCS: 71045; 99284; A9270

== ENCOUNTER 2020-06-26 14:48 | Emergency (ER) | payer MEDICAID ==
[2020-06-26 15:11] VITALS: BP 133/87; PULSE 71
[2020-06-26] MEDS ORDERED: Sodium Chloride 0.9% 1,000 ML IV STA (15:19)
[2020-06-26] MEDS ORDERED: Ondansetron 4 MG/2 ML SDV IVPUSH ONE (15:19)
[2020-06-26] MEDS ORDERED: Sodium Chloride 0.9% 10 ML Syringe FLUSH PRN (15:19)
--- NOTE | 2020-06-26 15:28 | EDM.PDOC ---
ED HPI GENERAL MEDICAL PROBLEM - General Chief Complaint: Gastrointestinal Problem Stated Complaint: DIZZY/NAUSEA Time Seen by Provider: 06/26/20 15:07 Source of Information: Reports: Patient History Limitations: Reports: No Limitations - History of Present Illness INITIAL COMMENTS - FREE TEXT/NARRATIVE: The patient presents with nausea and dizziness. This started this morning. She recently got over an episode of diverticulitis. She took her last antibiotic dose a couple days ago. She has no abdominal pain now. She has no fever or chills. She has no cough, chest pain or shortness of breath. She did have some diarrhea. She has no dysuria. Onset: Gradual Duration: Hour(s): Severity: Moderate Improves with: Reports: None Worsens with: Reports: None Associated Symptoms: Reports: Nausea/Vomiting. Denies: Chest Pain, Cough, Fever/Chills, Headaches, Shortness of Breath Lower Abdominal Pain Score (Numeric/FACES): 5 - Related Data Allergies Allergy/AdvReac Type Severity Reaction Status Date / Time levofloxacin Allergy Hives Verified 06/26/20 15:11 metronidazole Allergy Hives Verified 06/26/20 15:11 Home Meds: Home Meds levETIRAcetam [Keppra] 1,000 mg PO BID 08/19/13 [History] Meclizine [Antivert] 25 mg PO Q6H PRN #30 tab 06/26/20 [Rx] Ondansetron [Zofran ODT] 4 mg PO Q6H PRN #20 tab.dis 06/26/20 [Rx] Past Medical History HEENT History: Reports: Impaired Vision Other HEENT History: Wears glasses Cardiovascular History: Reports: Hypertension Respiratory History: Reports: None Gastrointestinal History: Reports: Diverticulosis Other Gastrointestinal History: diverticulitis Genitourinary History: Reports: UTI, Recurrent VISUAL DISPLAY ASSOCIATE History: Reports: None Musculoskeletal History: Reports: Arthritis Other Musculoskeletal History: "calcification tendonitis." Neurological History: Reports: Seizure Other Neuro History: Seizure-2 weeks ago. Psychiatric History: Reports: None Endocrine/Metabolic History: Reports: Obesity/BMI 30+ Hematologic History: Reports: None Immunologic History: Reports: None Oncologic (Cancer) History: Reports: None Dermatologic History: Reports: Eczema - Infectious Disease History Infectious Disease History: Reports: Chicken Pox, Measles, Mumps, Novel Coronavirus - Past Surgical History Head Surgeries/Procedures: Reports: None HEENT Surgical History: Reports: Oral Surgery Cardiovascular Surgical History: Reports: None GI Surgical History: Reports: Cholecystectomy Female Surgical History: Reports: None Endocrine Surgical History: Reports: None Neurological Surgical History: Reports: None Social & Family History - Family History Family Medical History: No Pertinent Family History - Tobacco Use Tobacco Use Status *Q: Never Tobacco User - Caffeine Use Caffeine Use: Reports: None - Recreational Drug Use Recreational Drug Use: No - Living Situation & Occupation Living situation: Reports: Single, with Family (Mother) Occupation: Disabled ED ROS GENERAL - Review of Systems Review Of Systems: See Below Constitutional: Reports: No Symptoms HEENT: Reports: No Symptoms Respiratory: Reports: No Symptoms Cardiovascular: Reports: No Symptoms Endocrine: Reports: No Symptoms GI/Abdominal: Reports: Diarrhea, Nausea. Denies: Abdominal Pain, Vomiting : Reports: No Symptoms Musculoskeletal: Reports: No Symptoms ED EXAM, GI/ABD - Physical Exam Exam: See Below Exam Limited By: No Limitations General Appearance: Alert, No Apparent Distress Ears: Normal External Exam Nose: Normal Inspection Head: Atraumatic, Normocephalic Neck: Normal Inspection Respiratory/Chest: No Respiratory Distress, Lungs Clear, Normal Breath Sounds Cardiovascular: Regular Rate, Rhythm, No Edema, No Murmur GI/Abdominal Exam: Soft, Non-Tender, No Organomegaly, No Mass Back Exam: Normal Inspection Extremities: Normal Inspection #1 Interpretation EKG Date: 06/26/20 Time: 15:29 Rhythm: NSR Rate (Beats/Min): 70 [place]: Normal P-Wave: Present QRS: Normal ST-T: Normal QT: Normal Course - Vital Signs Last Recorded V/S: Last Vital Signs Temp 97.8 F 06/26/20 15:06 Pulse 71 06/26/20 15:06 Resp 16 06/26/20 15:06 BP 133/87 06/26/20 15:06 Pulse Ox 97 06/26/20 15:06 Orthostatic Blood Pressure [ 126/97 Standing] Orthostatic Blood Pressure [ 128/91 Sitting] Orthostatic Blood Pressure [ 129/79 Supine] - Orders/Labs/Meds Orders: Active Orders 24 hr Category Date Time Status EKG Documentation Completion [RC] ASDIRECTED Care 06/26/20 15:20 Active Peripheral IV Care [RC] . DIRECTED Care 06/26/20 15:19 Active Sodium Chloride 0.9% [Saline Flush] Med 06/26/20 15:19 Active 10 ml FLUSH ASDIRECTED PRN ED Antiemetic Medication Reflex [OM.PC] Stat Oth 06/26/20 15:19 Ordered Peripheral IV Insertion Adult [OM.PC] Stat Oth 06/26/20 15:19 Ordered EKG 12 Lead [EK] Stat Ther 06/26/20 15:20 Ordered Medication Orders Sodium Chloride (Sodium Chloride 0.9% 10 Ml Syringe) 10 ml FLUSH ASDIRECTED PRN PRN Reason: Keep Vein Open Last Admin: 06/26/20 15:29 Dose: 10 ml Documented by: JONAS Labs: Laboratory Tests 06/26/20 06/26/20 06/26/20 Range/Units 15:28 15:28 15:45 WBC 6.93 (3.98-10.04) K/mm3 RBC 4.65 (3.98-5.22) M/mm3 Hgb 13.2 (11.2-15.7) gm/dl Hct 40.0 (34.1-44.9) % MCV 86.0 (79.4-94.8) fl MCH 28.4 (25.6-32.2) pg MCHC 33.0 (32.2-35.5) g/dl RDW Std Deviation 42.6 (36.4-46.3) fL Plt Count 371 H (182-369) K/mm3 MPV 10.0 (9.4-12.3) fl Neut % (Auto) 70.2 (34.0-71.1) % Lymph % (Auto) 21.9 (19.3-51.7) % [place] % (Auto) 6.2 (4.7-12.5) % Eos % (Auto) 1.3 (0.7-5.8) Baso % (Auto) 0.1 (0.1-1.2) % Neut # (Auto) 4.86 (1.56-6.13) K/mm3 Lymph # (Auto) 1.52 (1.18-3.74) K/mm3 [place] # (Auto) 0.43 H (0.24-0.36) K/mm3 Eos # (Auto) 0.09 (0.04-0.36) K/mm3 Baso # (Auto) 0.01 (0.01-0.08) K/mm3 Sodium 141 (136-145) mEq/L Potassium 3.9 (3.5-5.1) mEq/L Chloride 104 (98-107) mEq/L Carbon Dioxide 29 (21-32) mEq/L Anion Gap 11.9 (5-15) BUN 9 (7-18) mg/dL Creatinine 0.8 (0.55-1.02) mg/dL Est Cr Clr Drug Dosing 70.24 mL/min Estimated GFR (MDRD) > 60 (>60) mL/min BUN/Creatinine Ratio 11.3 L (14-18) Glucose 99 (74-106) mg/dL Calcium 9.0 (8.5-10.1) mg/dL Total Bilirubin 0.7 (0.2-1.0) mg/dL AST 15 (15-37) U/L ALT 27 (14-59) U/L Alkaline Phosphatase 96 (46-116) U/L Troponin I < 0.017 (0.00-0.056) ng/mL C-Reactive Protein 1.8 H* (<1.0) mg/dL Total Protein 7.7 (6.4-8.2) g/dl Albumin 3.5 (3.4-5.0) g/dl Globulin 4.2 gm/dL Albumin/Globulin Ratio 0.8 L (1-2) Urine Color Yellow (Yellow) Urine Appearance Clear (Clear) Urine pH 6.0 (5.0-8.0) Ur Specific [place] 1.025 (1.005-1.030) Urine Protein Negative (Negative) Urine Glucose (UA) Negative (Negative) Urine Ketones Negative (Negative) Urine Occult Blood 1+ H (Negative) Urine Nitrite Negative (Negative) Urine Bilirubin Negative (Negative) Urine Urobilinogen 0.2 (0.2-1.0) Ur Leukocyte Esterase Negative (Negative) Urine RBC 0-5 (0-5) /hpf Urine WBC 0-5 (0-5) /hpf Ur Squamous Epith Cells 0-5 (0-5) /hpf Urine Bacteria Few (FEW) /hpf Urine Mucus Moderate H (FEW) /hpf Meds: Medications Generic Name Dose Route Start Last Admin Trade Name Freq PRN Reason Stop Dose Admin Sodium Chloride 10 ml 06/26/20 15:19 06/26/20 15:29 Sodium Chloride 0.9% 10 Ml Syringe FLUSH 10 ml ASDIRECTED PRN Administration Keep Vein Open Discontinued Medications Generic Name Dose Route Start Last Admin Trade Name Nai PRN Reason Stop Dose Admin Sodium Chloride 1,000 mls @ 1,000 mls/hr 06/26/20 15:19 06/26/20 15:29 Normal Saline IV 06/26/20 16:18 1,000 mls/hr .BOLUS STA Administration Ondansetron HCl 4 mg 06/26/20 15:19 06/26/20 15:29 Ondansetron 4 Mg/2 Ml Sdv IVPUSH 06/26/20 15:20 4 mg ONETIME ONE Administration - Re-Assessments/Exams Free Text/Narrative Re-Assessment/Exam: 06/26/20 15:26 I ordered an IV NS 1L bolus, zofran 4mg IV, labs and UA. 06/26/20 16:48 Her EKG looks good. Her CBC and CMP look good. Her troponin is negative. Her CRP was slightly elevated at 1.8. Her UA shows no UTI. I feel this is some vertigo. I will get her zofran and some antivert. Departure - Departure Time of Disposition: 16:50 Disposition: Home, Self-Care 01 Condition: Good Clinical Impression: Vertigo - Discharge Information *PRESCRIPTION DRUG MONITORING PROGRAM REVIEWED*: Not Applicable *COPY OF PRESCRIPTION DRUG MONITORING REPORT IN PATIENT HERMINIA: Not Applicable Prescriptions: Meclizine [Antivert] 25 mg PO Q6H PRN #30 tab PRN Reason: Dizziness Ondansetron [Zofran ODT] 4 mg PO Q6H PRN #20 tab.dis PRN Reason: Nausea\\vomiting Referrals: Tank Ugalde MD [Primary Care Provider] - 1 Week Forms: ED Department Discharge Additional Instructions: Drink plenty of fluids. Take zofran every 6 hours as needed for nausea and vomiting. Take antivert every 6 hours as needed for dizziness. Follow up with Dr Ugalde within a week. Please return if you are worse. Sepsis Event Note (ED) - Evaluation Sepsis Screening Result: No Definite Risk - Focused Exam Vital Signs: Vital Signs Temp Pulse Resp BP Pulse Ox 06/26/20 15:06 97.8 F 71 16 133/87 97 - My Orders Last 24 Hours: My Active Orders 06/26/20 15:19 Peripheral IV Care [RC] . DIRECTED Sodium Chloride 0.9% [Saline Flush] 10 ml FLUSH ASDIRECTED PRN ED Antiemetic Medication Reflex [OM.PC] Stat Peripheral IV Insertion Adult [OM.PC] Stat 06/26/20 15:20 EKG Documentation Completion [RC] ASDIRECTED EKG 12 Lead [EK] Stat - Assessment/Plan Last 24 Hours: My Active Orders 06/26/20 15:19 Peripheral IV Care [RC] . DIRECTED Sodium Chloride 0.9% [Saline Flush] 10 ml FLUSH ASDIRECTED PRN ED Antiemetic Medication Reflex [OM.PC] Stat Peripheral IV Insertion Adult [OM.PC] Stat 06/26/20 15:20 EKG Documentation Completion [RC] ASDIRECTED EKG 12 Lead [EK] Stat
== END 2020-06-26 17:10 | disposition home or self-care (01) ==
LOC: JD.ED 14:48
DX: R42 Dizziness and giddiness (principal); R79.82 Elevated C-reactive protein (CRP); R19.7 Diarrhea, unspecified; R11.0 Nausea; I10 Essential (primary) hypertension; R56.9 Unspecified convulsions; E66.9 Obesity, unspecified; Z68.41 Body mass index [BMI] 40.0-44.9, adult; Z86.16 Personal history of COVID-19; Z79.899 Other long term (current) drug therapy; Z88.1 Allergy status to other antibiotic agents
CPT/HCPCS: 36415; 80053; 81001; 84484; 85025; 86140; 93005; 96374; 99284; J2405; J7030; 93010

== ENCOUNTER 2020-11-30 16:26 | Emergency (ER) | payer MEDICAID ==
--- NOTE | 2020-11-30 17:19 | EDM.PDOC ---
ED HPI GENERAL MEDICAL PROBLEM - General Chief Complaint: Bite:Animal, Insect Stated Complaint: INSECT BITE Time Seen by Provider: 11/30/20 16:53 Source of Information: Reports: Patient, RN Notes Reviewed History Limitations: Reports: No Limitations - History of Present Illness INITIAL COMMENTS - FREE TEXT/NARRATIVE: Patient is a 45-year-old female who presents to the ER for the evaluation of an insect bite. Patient notes that roughly an hour and a half ago, she was stung or bitten by some insect on her left inner ankle. States that the area started burning right after the bite. There is some surrounding erythema measuring 5 cm x 5 cm. She has not taken anything for pain or management of the bite at this time. She has not tried to ice the area. States that she has been feeling well prior to this. She is not sure what could have stung or bitten her, and she was concerned about the possibility of a retained stinger, or otherwise. Left Ankle Pain Score (Numeric/FACES): 5 - Related Data Allergies Allergy/AdvReac Type Severity Reaction Status Date / Time levofloxacin Allergy Hives Verified 06/26/20 15:11 metronidazole Allergy Hives Verified 06/26/20 15:11 Home Meds: Home Meds levETIRAcetam [Keppra] 1,000 mg PO BID 08/19/13 [History] Meclizine [Antivert] 25 mg PO Q6H PRN #30 tab 06/26/20 [Rx] Meclizine [Antivert] 25 mg PO Q6H PRN #30 tab 06/26/20 [Rx] Ondansetron [Zofran ODT] 4 mg PO Q6H PRN #20 tab.dis 06/26/20 [Rx] Ondansetron [Zofran ODT] 4 mg PO Q6H PRN #20 tab.dis 06/26/20 [Rx] Past Medical History HEENT History: Reports: Impaired Vision Other HEENT History: Wears glasses Cardiovascular History: Reports: Hypertension Respiratory History: Reports: None Gastrointestinal History: Reports: Diverticulosis Other Gastrointestinal History: diverticulitis Genitourinary History: Reports: UTI, Recurrent SHAREPOINT CONSULTANT History: Reports: None Musculoskeletal History: Reports: Arthritis Other Musculoskeletal History: "calcification tendonitis." Neurological History: Reports: Seizure Other Neuro History: Seizure-2 weeks ago. Psychiatric History: Reports: None Endocrine/Metabolic History: Reports: Obesity/BMI 30+ Hematologic History: Reports: None Immunologic History: Reports: None Oncologic (Cancer) History: Reports: None Dermatologic History: Reports: Eczema - Infectious Disease History Infectious Disease History: Reports: Chicken Pox, Measles, Mumps, Novel Coronavirus - Past Surgical History Head Surgeries/Procedures: Reports: None HEENT Surgical History: Reports: Oral Surgery Cardiovascular Surgical History: Reports: None GI Surgical History: Reports: Cholecystectomy Female Surgical History: Reports: None Endocrine Surgical History: Reports: None Neurological Surgical History: Reports: None Social & Family History - Family History Family Medical History: No Pertinent Family History - Caffeine Use Caffeine Use: Reports: None - Living Situation & Occupation Living situation: Reports: Single, with Family (Mother) Occupation: Disabled ED ROS GENERAL - Review of Systems Review Of Systems: Comprehensive ROS is negative, except as noted in HPI. ED EXAM, ANIMAL BITE - Physical Exam Exam: See Below Exam Limited By: No Limitations General Appearance: Alert, WD/WN, No Apparent Distress Respiratory/Chest: No Respiratory Distress, Lungs Clear, Normal Breath Sounds, No Accessory Muscle Use, Chest Non-Tender Cardiovascular: Normal Peripheral Pulses, Regular Rate, Rhythm, No Edema Peripheral Pulses: 2+: Dorsalis Pedis (L), Dorsalis Pedis (R) Extremities: Normal Range of Motion, Normal Capillary Refill Neurological: Alert, Oriented, Normal Cognition, No Motor/Sensory Deficits Psychiatric: Normal Affect, Normal Mood Skin Exam: Warm/Dry, Other (Erythema to the left medial ankle, measuring 5 cm x 5 cm at this time) Course - Vital Signs Last Recorded V/S: Last Vital Signs Temp 98.5 F 11/30/20 16:52 Pulse 77 11/30/20 16:52 Resp 18 11/30/20 16:52 BP 148/90 H 11/30/20 16:52 Pulse Ox 100 11/30/20 16:52 - Re-Assessments/Exams Free Text/Narrative Re-Assessment/Exam: 11/30/20 17:21 Patient presents to the ER for her insect bite. This does appear to be local inflammation at this time. There is no sign of any sort of retained foreign body made apparent at the site in question. Patient states that she does not want anything for pain management, and will go home and utilize conservative measures at this time. I did offer to give IM Toradol for pain management. Departure - Departure Time of Disposition: 17:18 Disposition: Home, Self-Care 01 Condition: Good Clinical Impression: Insect bite Qualifiers: Encounter type: initial encounter Site of insect bite: ankle Laterality: left Qualified Code(s): S90.562A - Insect bite (nonvenomous), left ankle, initial encounter - Discharge Information *PRESCRIPTION DRUG MONITORING PROGRAM REVIEWED*: No *COPY OF PRESCRIPTION DRUG MONITORING REPORT IN PATIENT HERMINIA: No Instructions: Insect Bite, Adult, [id number] Referrals: Tank Ugalde MD [Primary Care Provider] - Forms: ED Department Discharge Additional Instructions: You were evaluated in the ER today for your insect bite. At this time this looks like local inflammation, and this will take a day or 2 to feel much better. Sometimes this can take up to 48 hours to start subsiding. Please keep an eye on the area, if you should notice any red streaking, or redness that seems to be spreading far from the borders in which they are confined to today; then this would be cause for concern to return to medical management for reevaluation. You may continue to use Benadryl, 25 mg every 4 hours as needed for ongoing swelling relief, however throughout the day we recommend that you use a medication like Zyrtec (cetirizine) or Paty (fexofenadine), as this has antihistamine properties; and you only need to take 1 tablet daily for ongoing antihistamine management. The Benadryl can make you sleepy, and we caution use of this throughout the day. You may use 600 mg ibuprofen every 6 hours as needed for ongoing pain management. Do not exceed 3200 mg ibuprofen in a 24-hour time span. Please also try to use ice packs to the area on a intermittent basis to provide relief from the swelling. Do not hesitate to return to the ER at any time if symptoms change or worsen. Sepsis Event Note (ED) - Evaluation Sepsis Screening Result: No Definite Risk - Focused Exam Vital Signs: Vital Signs Temp Pulse Resp BP Pulse Ox 11/30/20 16:52 98.5 F 77 18 148/90 H 100
[2020-11-30 17:52] VITALS: BP 127/84; PULSE 66
== END 2020-11-30 17:30 | disposition home or self-care (01) ==
LOC: JD.ED 16:26
DX: S90.562A Insect bite (nonvenomous), left ankle, initial encounter (principal); I10 Essential (primary) hypertension; M19.90 Unspecified osteoarthritis, unspecified site; E66.9 Obesity, unspecified; Z79.899 Other long term (current) drug therapy; Z88.1 Allergy status to other antibiotic agents; W57.XXXA Bitten or stung by nonvenomous insect and other nonvenomous arthropods, initial encounter
CPT/HCPCS: 99281; 99283

== ENCOUNTER 2021-02-04 10:44 | Day surgery (SDC) | payer MEDICAID ==
--- NOTE | 2021-02-04 08:58 | PCM.PREANE ---
Preanesthetic Assessment - Procedure Proposed Procedure: Colonoscopy - Anesthesia/Transfusion/Family Hx Anesthesia History: Prior Anesthesia Without Reaction Family History of Anesthesia Reaction: No Transfusion History: No Prior Transfusion(s) Intubation History: Unknown - Review of Systems General: No Symptoms Pulmonary: No Symptoms Cardiovascular: No Symptoms Gastrointestinal: No Symptoms (History of dierticulosis) Neurological: Headache, Seizure (Generalized epilepsy, intractable: Still experiences episodes 1-3 times monthly: brief loss of awareness that lasts about 30 seconds.) Other: Reports: None - Physical Assessment NPO Status Date: 02/03/21 NPO Status Time: 23:00 Vital Signs: HR: 76 Sat: 95% Temp: 97.7 B/P: 144/86 Resp: 18 Height: 1.55 m Weight: 103 kg ASA Class: 3 Mental Status: Alert & Oriented x3 Airway Class: Mallampati = 2 Dentition: Reports: Normal Dentition, Missing Tooth/Teeth, Caries Thyro-Mental Finger Breadths: 3 Mouth Opening Finger Breadths: 3 ROM/Head Extension: Full Lungs: Clear to Auscultation, Normal Respiratory Effort Cardiovascular: Regular Rate, Regular Rhythm, No Murmurs - Lab Values: All labs reviewed and noted and within acceptable ranges to proceed with scheduled procedure. - Imaging/EKG Impressions: EKG: SR rate= 82, probable LAE - Allergies Allergies/Adverse Reactions: Allergies Allergy/AdvReac Type Severity Reaction Status Date / Time levofloxacin Allergy Hives Verified 02/03/21 13:13 metronidazole Allergy Hives Verified 02/03/21 13:13 - Anesthesia Plan Pre-Op Medication Ordered: None - Acknowledgements Anesthesia Type Planned: MAC Pt an Appropriate Candidate for the Planned Anesthesia: Yes Alternatives and Risks of Anesthesia Discussed w Pt/Guardian: Yes Pt/Guardian Understands and Agrees with Anesthesia Plan: Yes PreAnesthesia Questionnaire HEENT History: Reports: Impaired Vision Other HEENT History: Wears glasses Cardiovascular History: Reports: Hypertension, Other (See Below) Other Cardiovascular History: chest pain Respiratory History: Reports: Other (See Below) Other Respiratory History: bronchitis, cough Gastrointestinal History: Reports: Diverticulosis, Other (See Below) Other Gastrointestinal History: diverticulitis, vomiting Genitourinary History: Reports: UTI, Recurrent ALL SOURCE ANALYST History: Reports: None Musculoskeletal History: Reports: Arthritis Other Musculoskeletal History: "calcification tendonitis." Neurological History: Reports: Headaches, Chronic, Seizure Other Neuro History: Seizure-2 weeks ago. Psychiatric History: Reports: None Endocrine/Metabolic History: Reports: Obesity/BMI 30+ Hematologic History: Reports: None Immunologic History: Reports: None Oncologic (Cancer) History: Reports: None Dermatologic History: Reports: Eczema Other Dermatologic History: finger laceration, lump to head/neck - Infectious Disease History Infectious Disease History: Reports: None - Past Surgical History Head Surgeries/Procedures: Reports: None HEENT Surgical History: Reports: Oral Surgery Cardiovascular Surgical History: Reports: None Respiratory Surgical History: Reports: None GI Surgical History: Reports: Cholecystectomy Female Surgical History: Reports: None Male Surgical History: Reports: None Endocrine Surgical History: Reports: None Neurological Surgical History: Reports: None Musculoskeletal Surgical History: Reports: None Oncologic Surgical History: Reports: None Dermatological Surgical History: Reports: None - SUBSTANCE USE Tobacco Use Status *Q: Never Tobacco User Recreational Drug Use History: No - HOME MEDS Home Medications: Home Meds levETIRAcetam [Keppra] 1,000 mg PO BID 08/19/13 [History] Diclofenac Sodium [Voltaren 1% Gel] 1 dose TOP BID PRN 02/03/21 [History] EPINEPHrine [Epipen] 1 dose IM ASDIRECTED PRN 02/03/21 [History] Hydrocort/Neomycin/Polymyxin B [Cortisporin Otic Susp] 4 drop EARBOTH QID PRN 02/03/21 [History] Ketoconazole [Nizoral 2% Crm] 1 dose TOP BID PRN 02/03/21 [History] Ketoprofen [Frotek] 1 dose TOP BID PRN 02/03/21 [History] - CURRENT (IN HOUSE) MEDS Current Meds: Current Medications Lactated Ringer's (Ringers, Lactated) 1,000 mls @ 125 mls/hr IV ASDIRECTED ZENA Stop: 02/04/21 23:00 Lidocaine/Sodium Bicarbonate (Lidocaine 1%/Sod Bicarbonate In Ns 8.4% 1 Ml Syringe) 0.25 ml IDERM ONETIME PRN PRN Reason: Prior to IV Start Stop: 02/04/21 18:00 Sodium Chloride (Sodium Chloride 0.9% 10 Ml Syringe) 10 ml FLUSH ASDIRECTED PRN PRN Reason: Keep Vein Open Stop: 02/04/21 18:00
[~2021-02-04 10:44] MED LIST: Lactated Ringers 1,000 ML IV SCH; Lidocaine 1%/Sod Bicarbonate in NS 8.4% 1 ML Syringe IDERM PRN; Sodium Chloride 0.9% 10 ML Syringe FLUSH PRN
[2021-02-04] MEDS ORDERED: Propofol 200 MG/20 ML SDV ONE (11:57)
[2021-02-04] MEDS ORDERED: fentaNYL 100 MCG/2 ML SDV ONE (11:57)
[2021-02-04] MEDS ORDERED: Midazolam 1 MG/ML 2 ML SDV ONE (11:57)
--- NOTE | 2021-02-04 12:48 | PCM48HPAN ---
Post Anesthesia Note - EVALUATION WITHIN 48HRS OF ANESTHETIC Vital Signs in Normal Range: Yes Patient Participated in Evaluation: Yes Respiratory Function Stable: Yes Airway Patent: Yes Cardiovascular Function Stable: Yes Hydration Status Stable: Yes Pain Control Satisfactory: Yes Nausea and Vomiting Control Satisfactory: Yes Mental Status Recovered: Yes Vital Signs: Last Vital Signs Temp 97.7 F 02/04/21 10:55 Pulse 76 02/04/21 10:55 Resp 18 02/04/21 10:55 BP 144/86 H 02/04/21 10:55 Pulse Ox 95 02/04/21 10:55 Vital signs at 1243: BP 136/88 HR 66 93% RA RR 14 97.8
--- NOTE | 2021-02-04 13:19 | PROC ---
DATE OF OPERATION: 02/04/2021 SURGEON: Leno Stuart MD PREOPERATIVE DIAGNOSIS: Recurrent diverticulitis. POSTOPERATIVE DIAGNOSIS: Diverticulosis throughout the colon. OPERATION PERFORMED: Colonoscopy. ESTIMATED BLOOD LOSS: None. ANESTHESIA: Monitored anesthesia care. COMPLICATIONS: None. INDICATIONS AND CONSENT: The patient 46, has had multiple recurrent episodes of diverticulitis. The patient has had multiple CT scans and antibiotics. The patient eventually was referred to me for evaluation. I saw the patient, discussed with her about her symptoms, and recommended colonoscopy to rule out any other causes. The patient did agree to proceed. We discussed risks, benefits, and alternatives and informed consent was obtained. DESCRIPTION OF PROCEDURE: The patient was taken to procedure room, placed in supine position. Monitored anesthesia care was induced, and the patient's position was changed to left lateral decubitus. Time-out was performed, and we began the procedure by examining the perianal area, which was normal. Digital rectal exam was normal. Scope was inserted and taken all the way to the cecum. Appendiceal orifice and ileocecal valve were photographed. Then, we examined the entirety of the colon while withdrawing the scope. We noted that there were some few diverticula in the ascending colon, but there were also diverticula, few but present in the transverse. There were more diverticula in the descending and most of them were large and small in the sigmoid colon. The rectum was otherwise normal. On retroflexion, there were no abnormalities. There were no polyps that were found on this exam. Air was suctioned out, and procedure was concluded. The patient will follow up in clinic with me in 2 weeks to discuss possible surgical interventions versus observation. MMODAL /[id number]
[2021-02-05 07:36] VITALS: BP 133/89; PULSE 57
== END 2021-02-04 13:26 | disposition home or self-care (01) ==
LOC: JD.SDS 10:44
PROVIDERS: ATTEND Surgery
DX: K57.30 Diverticulosis of large intestine without perforation or abscess without bleeding (principal); G43.909 Migraine, unspecified, not intractable, without status migrainosus; E66.9 Obesity, unspecified; Z90.49 Acquired absence of other specified parts of digestive tract; Z79.899 Other long term (current) drug therapy; Z88.8 Allergy status to other drugs, medicaments and biological substances; Z68.41 Body mass index [BMI] 40.0-44.9, adult
CPT/HCPCS: 45378; J2250; J2704; J3010; J7120; 00811

== ENCOUNTER 2022-10-16 13:18 | Emergency (ER) | payer MEDICAID ==
[2022-10-16 16:01] VITALS: BP 130/88; PULSE 87
== END 2022-10-16 14:45 | disposition home or self-care (01) ==
LOC: JD.ED 13:18
DX: M25.522 Pain in left elbow (principal); I10 Essential (primary) hypertension; E66.9 Obesity, unspecified; Z68.41 Body mass index [BMI] 40.0-44.9, adult; Z88.1 Allergy status to other antibiotic agents; Z88.8 Allergy status to other drugs, medicaments and biological substances; Z79.899 Other long term (current) drug therapy
CPT/HCPCS: 99283

== ENCOUNTER 2022-11-11 16:33 | Emergency (ER) | payer MEDICAID ==
[2022-11-11] MEDS ORDERED: Sodium Chloride 0.9% 1,000 ML IV ONE (16:48)
[2022-11-11 16:57] LABS: BASOPHILS ABSOLUTE AUTO 0.02 K/mm3 (0.01-0.08); BASOPHILS PERCENT AUTO 0.2 % (0.1-1.2); EOSINOPHILS ABSOLUTE AUTO 0.07 K/mm3 (0.04-0.36); EOSINOPHILS PERCENT AUTO 0.6 (0.7-5.8); HEMATOCRIT 41.4 % (34.1-44.9); HEMOGLOBIN 13.6 gm/dl (11.2-15.7); IMMATURE GRAN ABSOLUTE AUTO 0.04 K/mm3 (0.00-0.10); IMMATURE GRAN PERCENT AUTO 0.4 % (<=1.0); LYMPHOCYTES ABSOLUTE AUTO 1.71 K/mm3 (1.18-3.74); LYMPHOCYTES PERCENT AUTO 15.6 % (19.3-51.7); MEAN CORPUSCULAR HEMOGLOBIN 28.8 pg (25.6-32.2); MEAN CORPUSCULAR HGB CONC 32.9 g/dl (32.2-35.5); MEAN CORPUSCULAR VOLUME 87.7 fl (79.4-94.8); MONOCYTES ABSOLUTE AUTO 0.59 K/mm3 (0.24-0.36); MONOCYTES PERCENT AUTO 5.4 % (4.7-12.5); NEUTROPHILS ABSOLUTE AUTO 8.53 K/mm3 (1.56-6.13); NEUTROPHILS PERCENT AUTO 77.8 % (34.0-71.1); PLATELET COUNT,PLT 425 K/mm3 (182-369); RED BLOOD CELL COUNT 4.72 M/mm3 (3.98-5.22); WHITE BLOOD CELL COUNT,WBC 10.96 K/mm3 (3.98-10.04)
[2022-11-11 17:28] LABS: A/G RATIO 0.8 (1-2); ALBUMIN 3.7 g/dl (3.4-5.0); ANION GAP 11.5 (5-15); BILIRUBIN TOTAL 0.8 mg/dL (0.2-1.0); BUN/CREATININE RATIO 11.3 (14-18); C-REACTIVE PROTEIN 2.2 mg/dL (<1.0); CALCIUM 9.2 mg/dL (8.5-10.1); CREATININE 0.8 mg/dL (0.55-1.02); EST CRCL DRUG DOSING (CG) 65.6 mL/min; MAGNESIUM 1.9 mg/dL (1.8-2.4); POTASSIUM,K 3.5 mEq/L (3.5-5.1); PROTEIN TOTAL,TP 8.3 g/dl (6.4-8.2)
[2022-11-11 18:54] VITALS: BP 119/78; PULSE 78
== END 2022-11-11 18:54 | disposition home or self-care (01) ==
LOC: JD.ED 16:33
DX: R55 Syncope and collapse (principal); E66.9 Obesity, unspecified; I10 Essential (primary) hypertension; Z68.42 Body mass index [BMI] 45.0-49.9, adult; Z88.1 Allergy status to other antibiotic agents; Z88.8 Allergy status to other drugs, medicaments and biological substances; Z79.899 Other long term (current) drug therapy
CPT/HCPCS: 36415; 80053; 82947; 83735; 84484; 85025; 86140; 93005; 96360; 99284; J7030; 93010; 99283

== ENCOUNTER 2023-08-04 12:51 | Emergency (ER) | payer MEDICAID ==
[2023-08-04 16:07] LABS: BASOPHILS PERCENT AUTO 0.3 % (0.0-1.0); EOSINOPHILS ABSOLUTE AUTO 0.1 K/mm3 (0.0-0.4); EOSINOPHILS PERCENT AUTO 0.5 % (0.0-6.0); HEMATOCRIT 40.5 % (37.0-47.0); HEMOGLOBIN 13.5 gm/dl (12.0-16.0); IMMATURE GRAN ABSOLUTE AUTO 0.05 K/mm3 (0.00-0.05); IMMATURE GRAN PERCENT AUTO 0.4 % (0.0-0.4); LYMPHOCYTES ABSOLUTE AUTO 1.4 K/mm3 (1.0-4.8); LYMPHOCYTES PERCENT AUTO 11.6 % (24.0-44.0); MEAN CORPUSCULAR HEMOGLOBIN 28.7 pg (28.0-32.0); MEAN CORPUSCULAR HGB CONC 33.3 g/dl (32.0-36.0); MEAN PLATELET VOLUME 10.2 fl (9.4-12.3); MONOCYTES ABSOLUTE AUTO 0.7 K/mm3 (0.0-0.8); MONOCYTES PERCENT AUTO 5.8 % (0.0-8.0); NEUTROPHILS ABSOLUTE AUTO 9.7 K/mm3 (1.8-7.7); NEUTROPHILS PERCENT AUTO 81.4 % (41.0-71.0); PLATELET COUNT,PLT 342 K/mm3 (150-400); RED BLOOD CELL COUNT 4.71 M/mm3 (4.10-5.30); WHITE BLOOD CELL COUNT,WBC 11.92 K/mm3 (3.9-11.3)
[2023-08-04 16:25] LABS: A/G RATIO 0.7 (1-2); ALBUMIN 3.4 g/dl (3.4-5.0); ANION GAP 15.9 (5-15); CALCIUM 9.2 mg/dL (8.5-10.1); CREATININE 0.8 mg/dL (0.55-1.02); EST CRCL DRUG DOSING (CG) 64.89 mL/min; POTASSIUM,K 3.9 mEq/L (3.5-5.1); PROTEIN TOTAL,TP 8.2 g/dl (6.4-8.2)
[2023-08-04 17:10] LABS: CORONAVIRUS COVID-19 NAA NEGATIVE (NEGATIVE); INFLUENZA A NAA NEGATIVE (NEGATIVE); RESPIRATORY SYNCYTIAL VIR NAA NEGATIVE (NEGATIVE)
[2023-08-04 17:18] LABS: APPEARANCE,URINE CLOUDY (Clear); BILIRUBIN,URINE 1+ (Negative); COLOR,URINE BROWN (Yellow); GLUCOSE,URINE NEGATIVE (Negative); KETONES,URINE 1+ (Negative); LEUKOCYTE ESTERASE,URINE NEGATIVE (Negative); NITRITE,URINE NEGATIVE (Negative); OCCULT BLOOD,URINE 3+ (Negative); PROTEIN,URINE 2+ (Negative); UROBILINOGEN,URINE 0.2 (0.2-1.0)
[2023-08-04 17:33] LABS: EPITHELIAL CELLS,URINE 0-5 /hpf (0-5); RBC,URINE >100 /hpf (0-5); WBC,URINE 0-5 /hpf (0-5)
[2023-08-04 17:34] LABS: BACTERIA,URINE FEW /hpf (FEW); MUCUS,URINE MODERATE /hpf (FEW)
[2023-08-04] MEDS: predniSONE 20 MG Tab PO ONE (17:49)
[2023-08-04 17:54] VITALS: BP 135/77; PULSE 75
== END 2023-08-04 17:55 | disposition home or self-care (01) ==
LOC: JD.ED 12:51
DX: J98.8 Other specified respiratory disorders (principal); R05.1 Acute cough; I10 Essential (primary) hypertension; E66.9 Obesity, unspecified; Z79.899 Other long term (current) drug therapy; Z91.030 Bee allergy status; Z88.1 Allergy status to other antibiotic agents
CPT/HCPCS: 0241U; 36415; 71046; 80053; 81001; 85025; 87651; 99283; J7512

== ENCOUNTER 2023-08-09 00:22 | Emergency (ER) | payer MEDICAID ==
[2023-08-09 00:33] VITALS: BP 175/78; PULSE 70
[2023-08-09] MEDS: Benzonatate 100 MG Cap PO ONE (01:13)
[2023-08-09] MEDS: Famotidine 20 MG Tab PO ONE (01:15)
== END 2023-08-09 01:24 | disposition home or self-care (01) ==
LOC: JD.ED 00:22
DX: J40 Bronchitis, not specified as acute or chronic (principal); I10 Essential (primary) hypertension; E66.9 Obesity, unspecified; Z86.16 Personal history of COVID-19; Z79.899 Other long term (current) drug therapy; Z88.1 Allergy status to other antibiotic agents; Z88.8 Allergy status to other drugs, medicaments and biological substances; Z91.030 Bee allergy status
CPT/HCPCS: 99283; A9270

== ENCOUNTER 2023-10-08 15:36 | Inpatient (IN) | payer MEDICAID ==
[2023-10-08] MEDS: Iopamidol 612 MG/ML 100 ML Bottle IVPUSH ONE (16:04)
[2023-10-08 16:48] LABS: BASOPHILS PERCENT AUTO 0.4 % (0.0-1.0); EOSINOPHILS ABSOLUTE AUTO 0.1 K/mm3 (0.0-0.4); EOSINOPHILS PERCENT AUTO 1.1 % (0.0-6.0); HEMATOCRIT 38.3 % (37.0-47.0); HEMOGLOBIN 12.8 gm/dl (12.0-16.0); IMMATURE GRAN ABSOLUTE AUTO 0.06 K/mm3 (0.00-0.05); IMMATURE GRAN PERCENT AUTO 0.7 % (0.0-0.4); LYMPHOCYTES PERCENT AUTO 12.6 % (24.0-44.0); MEAN CORPUSCULAR HEMOGLOBIN 28.7 pg (28.0-32.0); MEAN CORPUSCULAR HGB CONC 33.4 g/dl (32.0-36.0); MEAN CORPUSCULAR VOLUME 85.9 fl (83.0-99.0); MEAN PLATELET VOLUME 10.2 fl (9.4-12.3); MONOCYTES ABSOLUTE AUTO 0.6 K/mm3 (0.0-0.8); MONOCYTES PERCENT AUTO 6.8 % (0.0-8.0); NEUTROPHILS ABSOLUTE AUTO 6.3 K/mm3 (1.8-7.7); NEUTROPHILS PERCENT AUTO 78.4 % (41.0-71.0); PLATELET COUNT,PLT 369 K/mm3 (150-400); RED BLOOD CELL COUNT 4.46 M/mm3 (4.10-5.30); WHITE BLOOD CELL COUNT,WBC 8.07 K/mm3 (3.9-11.3)
[2023-10-08] MEDS: Sodium Chloride 0.9% 10 ML Syringe FLUSH PRN ×2 (16:57→17:16)
[2023-10-08] MEDS: Sodium Chloride 0.9% 1,000 ML IV STA (17:16)
[2023-10-08 17:22] LABS: A/G RATIO 0.6 (1-2); ALBUMIN 3.1 g/dl (3.4-5.0); ANION GAP 13.6 (5-15); BILIRUBIN TOTAL 1.4 mg/dL (0.2-1.0); C-REACTIVE PROTEIN 14.29 mg/dL (<0.30); CALCIUM 9.4 mg/dL (8.5-10.1); CREATININE 0.8 mg/dL (0.55-1.02); EST CRCL DRUG DOSING (CG) 68.02 mL/min; POTASSIUM,K 3.6 mEq/L (3.5-5.1); PROTEIN TOTAL,TP 8.2 g/dl (6.4-8.2)
[2023-10-08] MEDS: Piperacillin/Tazobactam 4.5 GM in Sodium Chloride 0.9% 100 ML IV ONE (18:16)
[2023-10-08] MEDS ORDERED: Morphine 2 MG/ML SYRINGE IVPUSH PRN (18:21)
[2023-10-08] MEDS ORDERED: Acetaminophen/HYDROcodone 325-5 MG Tab PO PRN (18:21)
[2023-10-08] MEDS ORDERED: Acetaminophen 325 MG Tab PO PRN (18:21)
[2023-10-08] MEDS ORDERED: ALPRAZolam 0.25 MG Tab PO PRN (18:35)
[2023-10-08] MEDS ORDERED: EPINEPHrine 0.3 MG/0.3 ML Pen Autoinjector IM PRN (18:38)
[2023-10-08 18:50] LABS: APPEARANCE,URINE CLEAR (Clear); BILIRUBIN,URINE NEGATIVE (Negative); COLOR,URINE YELLOW (Yellow); GLUCOSE,URINE NEGATIVE (Negative); KETONES,URINE 1+ (Negative); LEUKOCYTE ESTERASE,URINE NEGATIVE (Negative); NITRITE,URINE NEGATIVE (Negative); OCCULT BLOOD,URINE TRACE-INTACT (Negative); PROTEIN,URINE NEGATIVE (Negative)
[2023-10-08 18:51] LABS: LACTIC ACID 0.9 mmol/L (0.4-2.0)
[2023-10-08 19:04] LABS: BACTERIA,URINE FEW /hpf (FEW); MUCUS,URINE FEW /hpf (FEW); RBC,URINE 0-5 /hpf (0-5); SQUAMOUS EPITHELIAL CELLS,UR 0-5 /hpf (0-5); WBC,URINE 0-5 /hpf (0-5)
[2023-10-08] MEDS: Lactated Ringers 1,000 ML IV SCH (22:09)
[2023-10-08] MEDS: Enoxaparin 30 MG/0.3 ML Syringe SUBCUT SCH (22:10)
[2023-10-08] MEDS: Piperacillin/Tazobactam 4.5 GM in Sodium Chloride 0.9% 100 ML IV SCH (22:16)
[2023-10-08] MEDS: levETIRAcetam 500 MG Tab PO SCH (22:19)
[2023-10-09 05:47] LABS: BASOPHILS PERCENT AUTO 0.5 % (0.0-1.0); EOSINOPHILS ABSOLUTE AUTO 0.1 K/mm3 (0.0-0.4); EOSINOPHILS PERCENT AUTO 1.5 % (0.0-6.0); HEMATOCRIT 34.2 % (37.0-47.0); HEMOGLOBIN 11.5 gm/dl (12.0-16.0); IMMATURE GRAN ABSOLUTE AUTO 0.08 K/mm3 (0.00-0.05); LYMPHOCYTES ABSOLUTE AUTO 1.8 K/mm3 (1.0-4.8); LYMPHOCYTES PERCENT AUTO 22.4 % (24.0-44.0); MEAN CORPUSCULAR HEMOGLOBIN 28.6 pg (28.0-32.0); MEAN CORPUSCULAR HGB CONC 33.6 g/dl (32.0-36.0); MEAN CORPUSCULAR VOLUME 85.1 fl (83.0-99.0); MEAN PLATELET VOLUME 10.3 fl (9.4-12.3); MONOCYTES ABSOLUTE AUTO 0.6 K/mm3 (0.0-0.8); MONOCYTES PERCENT AUTO 7.6 % (0.0-8.0); NEUTROPHILS ABSOLUTE AUTO 5.2 K/mm3 (1.8-7.7); PLATELET COUNT,PLT 347 K/mm3 (150-400); RED BLOOD CELL COUNT 4.02 M/mm3 (4.10-5.30); WHITE BLOOD CELL COUNT,WBC 7.81 K/mm3 (3.9-11.3)
[2023-10-09 05:57] LABS: A/G RATIO 0.6 (1-2); ALBUMIN 2.8 g/dl (3.4-5.0); ANION GAP 17.2 (5-15); BUN/CREATININE RATIO 8.8 (14-18); CALCIUM 8.9 mg/dL (8.5-10.1); CREATININE 0.8 mg/dL (0.55-1.02); EST CRCL DRUG DOSING (CG) 64.89 mL/min; POTASSIUM,K 3.2 mEq/L (3.5-5.1); PROTEIN TOTAL,TP 7.3 g/dl (6.4-8.2)
[2023-10-09] MEDS: Pantoprazole 40 MG Tab.CR PO SCH (08:24)
[2023-10-09] MEDS: Sennosides/Docusate Sodium 50-8.6 MG Tab PO SCH (08:24)
[2023-10-09] MEDS: Bisacodyl 5 MG Tab PO SCH (08:25)
[2023-10-09] MEDS: Potassium Chloride 10 MEQ in Premix Bag 1 BAG IV SCH (08:39)
[2023-10-09] MEDS ORDERED: predniSONE 20 MG Tab PO SCH (09:00)
[2023-10-09] MEDS: Ondansetron 4 MG/2 ML SDV IV PRN (10:29)
[2023-10-09] MEDS: Sodium Chloride 0.9% 1,000 ML IV SCH (21:14)
[2023-10-10 05:31] LABS: BASOPHILS PERCENT AUTO 0.5 % (0.0-1.0); EOSINOPHILS ABSOLUTE AUTO 0.1 K/mm3 (0.0-0.4); HEMATOCRIT 33.3 % (37.0-47.0); HEMOGLOBIN 10.9 gm/dl (12.0-16.0); IMMATURE GRAN ABSOLUTE AUTO 0.05 K/mm3 (0.00-0.05); IMMATURE GRAN PERCENT AUTO 0.8 % (0.0-0.4); LYMPHOCYTES ABSOLUTE AUTO 1.7 K/mm3 (1.0-4.8); LYMPHOCYTES PERCENT AUTO 27.5 % (24.0-44.0); MEAN CORPUSCULAR HEMOGLOBIN 28.7 pg (28.0-32.0); MEAN CORPUSCULAR HGB CONC 32.7 g/dl (32.0-36.0); MEAN CORPUSCULAR VOLUME 87.6 fl (83.0-99.0); MEAN PLATELET VOLUME 9.9 fl (9.4-12.3); MONOCYTES ABSOLUTE AUTO 0.4 K/mm3 (0.0-0.8); MONOCYTES PERCENT AUTO 7.1 % (0.0-8.0); NEUTROPHILS ABSOLUTE AUTO 3.8 K/mm3 (1.8-7.7); NEUTROPHILS PERCENT AUTO 62.1 % (41.0-71.0); PLATELET COUNT,PLT 329 K/mm3 (150-400); WHITE BLOOD CELL COUNT,WBC 6.07 K/mm3 (3.9-11.3)
[2023-10-10 06:06] LABS: A/G RATIO 0.7 (1-2); ALBUMIN 2.7 g/dl (3.4-5.0); ANION GAP 14.3 (5-15); BILIRUBIN TOTAL 0.6 mg/dL (0.2-1.0); CALCIUM 8.5 mg/dL (8.5-10.1); CREATININE 0.8 mg/dL (0.55-1.02); EST CRCL DRUG DOSING (CG) 64.89 mL/min; POTASSIUM,K 3.3 mEq/L (3.5-5.1); PROTEIN TOTAL,TP 6.6 g/dl (6.4-8.2)
[2023-10-10] MEDS: Potassium Chloride 20 MEQ Tab.ER PO ONE (09:27)
[2023-10-10] MEDS: Potassium Chloride 10 MEQ in Premix Bag 1 BAG IV SCH (10:37)
[2023-10-11 05:49] LABS: BASOPHILS PERCENT AUTO 0.7 % (0.0-1.0); EOSINOPHILS ABSOLUTE AUTO 0.2 K/mm3 (0.0-0.4); EOSINOPHILS PERCENT AUTO 2.6 % (0.0-6.0); HEMATOCRIT 30.9 % (37.0-47.0); IMMATURE GRAN ABSOLUTE AUTO 0.06 K/mm3 (0.00-0.05); LYMPHOCYTES ABSOLUTE AUTO 1.7 K/mm3 (1.0-4.8); LYMPHOCYTES PERCENT AUTO 29.5 % (24.0-44.0); MEAN CORPUSCULAR HEMOGLOBIN 28.1 pg (28.0-32.0); MEAN CORPUSCULAR HGB CONC 32.4 g/dl (32.0-36.0); MEAN CORPUSCULAR VOLUME 86.8 fl (83.0-99.0); MEAN PLATELET VOLUME 10.2 fl (9.4-12.3); MONOCYTES ABSOLUTE AUTO 0.4 K/mm3 (0.0-0.8); MONOCYTES PERCENT AUTO 6.7 % (0.0-8.0); NEUTROPHILS ABSOLUTE AUTO 3.5 K/mm3 (1.8-7.7); NEUTROPHILS PERCENT AUTO 59.5 % (41.0-71.0); PLATELET COUNT,PLT 296 K/mm3 (150-400); RED BLOOD CELL COUNT 3.56 M/mm3 (4.10-5.30); WHITE BLOOD CELL COUNT,WBC 5.84 K/mm3 (3.9-11.3)
[2023-10-11 05:56] LABS: A/G RATIO 0.7 (1-2); ALBUMIN 2.4 g/dl (3.4-5.0); ANION GAP 12.3 (5-15); BILIRUBIN TOTAL 0.4 mg/dL (0.2-1.0); BUN/CREATININE RATIO 2.9 (14-18); CALCIUM 8.1 mg/dL (8.5-10.1); CREATININE 0.7 mg/dL (0.55-1.02); EST CRCL DRUG DOSING (CG) 74.17 mL/min; POTASSIUM,K 3.3 mEq/L (3.5-5.1)
[2023-10-11] MEDS: Potassium Chloride 20 MEQ Tab.ER PO ONE (11:01)
[2023-10-11 15:44] VITALS: BP 121/82; PULSE 70
== END 2023-10-11 15:45 | disposition home or self-care (01) | DRG 392 ==
LOC: JD.ED 15:36 → JD.MS 18:18 → UNDOADMIN 18:52
PROVIDERS: ADMIT Student in an Organized Health Care Education/Training Program; ATTEND Student in an Organized Health Care Education/Training Program
DX: K57.20 Diverticulitis of large intestine with perforation and abscess without bleeding (principal); Z68.42 Body mass index [BMI] 45.0-49.9, adult; E66.01 Morbid (severe) obesity due to excess calories; I10 Essential (primary) hypertension; H54.7 Unspecified visual loss; M19.90 Unspecified osteoarthritis, unspecified site; G43.909 Migraine, unspecified, not intractable, without status migrainosus; E88.09 Other disorders of plasma-protein metabolism, not elsewhere classified; R79.89 Other specified abnormal findings of blood chemistry; F41.9 Anxiety disorder, unspecified; E87.6 Hypokalemia; G40.909 Epilepsy, unspecified, not intractable, without status epilepticus; Z90.49 Acquired absence of other specified parts of digestive tract; Z88.1 Allergy status to other antibiotic agents; Z88.8 Allergy status to other drugs, medicaments and biological substances; Z91.030 Bee allergy status; Z79.899 Other long term (current) drug therapy; Z87.440 Personal history of urinary (tract) infections; Z86.16 Personal history of COVID-19; Z98.890 Other specified postprocedural states
CPT/HCPCS: 36415; 74176; 74176-26; 74177; 74177-26; 76705; 76705-26; 80053; 81001; 83605; 84703; 85025; 86140; 96361; 96374; 99285-25; A9270-GY; J1650; J2405; J2543; J3480; J3490; J7030; J7120; Q9967

== ENCOUNTER 2023-11-04 07:56 | Emergency (ER) | payer MEDICAID ==
[2023-11-04] MEDS: Sodium Chloride 0.9% 1,000 ML IV SCH (08:49)
[2023-11-04 09:20] LABS: A/G RATIO 0.8 (1-2); ALBUMIN 3.5 g/dl (3.4-5.0); ANION GAP 13.9 (5-15); BILIRUBIN TOTAL 1.1 mg/dL (0.2-1.0); BUN/CREATININE RATIO 8.6 (14-18); C-REACTIVE PROTEIN 3.15 mg/dL (<0.30); CALCIUM 9.4 mg/dL (8.5-10.1); CREATININE 0.7 mg/dL (0.55-1.02); EST CRCL DRUG DOSING (CG) 74.17 mL/min; MAGNESIUM 1.8 mg/dL (1.8-2.4); POTASSIUM,K 3.9 mEq/L (3.5-5.1); PROTEIN TOTAL,TP 7.7 g/dl (6.4-8.2)
[2023-11-04 09:26] LABS: BASOPHILS PERCENT AUTO 0.2 % (0.0-1.0); EOSINOPHILS ABSOLUTE AUTO 0.1 K/mm3 (0.0-0.4); EOSINOPHILS PERCENT AUTO 0.5 % (0.0-6.0); HEMATOCRIT 40.4 % (37.0-47.0); HEMOGLOBIN 13.3 gm/dl (12.0-16.0); IMMATURE GRAN ABSOLUTE AUTO 0.06 K/mm3 (0.00-0.05); IMMATURE GRAN PERCENT AUTO 0.5 % (0.0-0.4); LYMPHOCYTES PERCENT AUTO 7.7 % (24.0-44.0); MEAN CORPUSCULAR HEMOGLOBIN 28.4 pg (28.0-32.0); MEAN CORPUSCULAR HGB CONC 32.9 g/dl (32.0-36.0); MEAN CORPUSCULAR VOLUME 86.1 fl (83.0-99.0); MEAN PLATELET VOLUME 10.9 fl (9.4-12.3); MONOCYTES ABSOLUTE AUTO 0.8 K/mm3 (0.0-0.8); MONOCYTES PERCENT AUTO 5.9 % (0.0-8.0); NEUTROPHILS ABSOLUTE AUTO 10.9 K/mm3 (1.8-7.7); NEUTROPHILS PERCENT AUTO 85.2 % (41.0-71.0); PLATELET COUNT,PLT 279 K/mm3 (150-400); RED BLOOD CELL COUNT 4.69 M/mm3 (4.10-5.30)
[2023-11-04 09:32] LABS: LACTIC ACID 1.1 mmol/L (0.4-2.0)
[2023-11-04 09:56] LABS: APPEARANCE,URINE CLEAR (Clear); BILIRUBIN,URINE NEGATIVE (Negative); COLOR,URINE YELLOW (Yellow); GLUCOSE,URINE NEGATIVE (Negative); KETONES,URINE NEGATIVE (Negative); LEUKOCYTE ESTERASE,URINE NEGATIVE (Negative); NITRITE,URINE NEGATIVE (Negative); OCCULT BLOOD,URINE NEGATIVE (Negative); PROTEIN,URINE NEGATIVE (Negative); UROBILINOGEN,URINE 0.2 (0.2-1.0)
[2023-11-04] MEDS ORDERED: Iopamidol 612 MG/ML 100 ML Bottle IVPUSH ONE (11:10)
[2023-11-04] MEDS: Iopamidol 612 MG/ML 100 ML Bottle IVPUSH ONE (11:26)
[2023-11-04] MEDS: Sodium Chloride 0.9% 10 ML Syringe FLUSH ONE (11:26)
[2023-11-04 11:32] LABS: HEMOGLOBIN A1C 5.2 %
[2023-11-04] MEDS: Sodium Chloride 0.9% 10 ML Syringe FLUSH PRN (11:32)
[2023-11-04] MEDS: Piperacillin/Tazobactam 4.5 GM in Sodium Chloride 0.9% 100 ML IV ONE (11:32)
[2023-11-04 16:29] VITALS: BP 133/78; PULSE 78
== END 2023-11-04 14:45 | disposition home or self-care (01) ==
LOC: JD.ED 07:56
DX: K57.32 Diverticulitis of large intestine without perforation or abscess without bleeding (principal); I10 Essential (primary) hypertension; E66.9 Obesity, unspecified; Z88.8 Allergy status to other drugs, medicaments and biological substances; Z91.030 Bee allergy status; Z88.1 Allergy status to other antibiotic agents; Z79.899 Other long term (current) drug therapy; Z86.16 Personal history of COVID-19; Z90.49 Acquired absence of other specified parts of digestive tract; Z68.41 Body mass index [BMI] 40.0-44.9, adult
CPT/HCPCS: 36415; 74018; 74177; 80053; 81003; 83036; 83605; 83690; 83735; 85025; 86140; 96361; 96365; 99284; J2543; J3490; J7030; Q9967

== ENCOUNTER 2023-11-18 12:30 | Emergency (ER) | payer MEDICAID ==
[2023-11-18] MEDS ORDERED: Sodium Chloride 0.9% 10 ML Syringe FLUSH PRN (13:15)
[2023-11-18 13:32] LABS: BASOPHILS PERCENT AUTO 0.3 % (0.0-1.0); EOSINOPHILS ABSOLUTE AUTO 0.1 K/mm3 (0.0-0.4); EOSINOPHILS PERCENT AUTO 0.4 % (0.0-6.0); HEMATOCRIT 39.9 % (37.0-47.0); HEMOGLOBIN 13.2 gm/dl (12.0-16.0); IMMATURE GRAN ABSOLUTE AUTO 0.06 K/mm3 (0.00-0.05); IMMATURE GRAN PERCENT AUTO 0.5 % (0.0-0.4); LYMPHOCYTES ABSOLUTE AUTO 0.9 K/mm3 (1.0-4.8); LYMPHOCYTES PERCENT AUTO 7.4 % (24.0-44.0); MEAN CORPUSCULAR HEMOGLOBIN 28.4 pg (28.0-32.0); MEAN CORPUSCULAR HGB CONC 33.1 g/dl (32.0-36.0); MEAN PLATELET VOLUME 10.8 fl (9.4-12.3); MONOCYTES ABSOLUTE AUTO 0.8 K/mm3 (0.0-0.8); MONOCYTES PERCENT AUTO 6.3 % (0.0-8.0); NEUTROPHILS ABSOLUTE AUTO 10.7 K/mm3 (1.8-7.7); NEUTROPHILS PERCENT AUTO 85.1 % (41.0-71.0); PLATELET COUNT,PLT 296 K/mm3 (150-400); RED BLOOD CELL COUNT 4.64 M/mm3 (4.10-5.30); WHITE BLOOD CELL COUNT,WBC 12.61 K/mm3 (3.9-11.3)
[2023-11-18] MEDS: Sodium Chloride 0.9% 1,000 ML IV ONE (13:35)
[2023-11-18 14:03] LABS: A/G RATIO 0.8 (1-2); ALBUMIN 3.4 g/dl (3.4-5.0); ANION GAP 12.8 (5-15); BILIRUBIN TOTAL 1.2 mg/dL (0.2-1.0); BUN/CREATININE RATIO 11.3 (14-18); C-REACTIVE PROTEIN 5.92 mg/dL (<0.30); CALCIUM 8.9 mg/dL (8.5-10.1); CREATININE 0.8 mg/dL (0.55-1.02); EST CRCL DRUG DOSING (CG) 64.89 mL/min; MAGNESIUM 1.8 mg/dL (1.8-2.4); POTASSIUM,K 3.8 mEq/L (3.5-5.1); PROTEIN TOTAL,TP 7.6 g/dl (6.4-8.2)
[2023-11-18 14:50] LABS: APPEARANCE,URINE SLT CLOUDY (Clear); BILIRUBIN,URINE NEGATIVE (Negative); COLOR,URINE YELLOW (Yellow); GLUCOSE,URINE NEGATIVE (Negative); KETONES,URINE NEGATIVE (Negative); LEUKOCYTE ESTERASE,URINE NEGATIVE (Negative); NITRITE,URINE NEGATIVE (Negative); OCCULT BLOOD,URINE 2+ (Negative); PROTEIN,URINE NEGATIVE (Negative); UROBILINOGEN,URINE 0.2 (0.2-1.0)
[2023-11-18 15:14] LABS: BACTERIA,URINE FEW /hpf (FEW); SQUAMOUS EPITHELIAL CELLS,UR 0-5 /hpf (0-5); WBC,URINE 0-5 /hpf (0-5)
[2023-11-18 15:15] LABS: MUCUS,URINE MODERATE /hpf (FEW)
[2023-11-18 19:56] VITALS: BP 100/81; PULSE 79
== END 2023-11-18 16:04 | disposition home or self-care (01) ==
LOC: JD.ED 12:30
DX: K57.92 Diverticulitis of intestine, part unspecified, without perforation or abscess without bleeding (principal); I10 Essential (primary) hypertension; E66.9 Obesity, unspecified; Z86.16 Personal history of COVID-19; Z88.1 Allergy status to other antibiotic agents; Z91.030 Bee allergy status; Z88.8 Allergy status to other drugs, medicaments and biological substances; Z79.899 Other long term (current) drug therapy; Z90.49 Acquired absence of other specified parts of digestive tract; Z68.41 Body mass index [BMI] 40.0-44.9, adult
CPT/HCPCS: 36415; 80053; 81001; 83690; 83735; 85025; 86140; 96360; 96361; 99284; J7030

== ENCOUNTER 2023-11-19 08:39 | Emergency (ER) | payer MEDICAID ==
[2023-11-19] MEDS: Ketorolac 30 MG/ML SDV IVPUSH ONE (09:27)
[2023-11-19] MEDS: Sodium Chloride 0.9% 10 ML Syringe FLUSH PRN (09:35)
[2023-11-19 09:47] LABS: BASOPHILS PERCENT AUTO 0.3 % (0.0-1.0); EOSINOPHILS ABSOLUTE AUTO 0.1 K/mm3 (0.0-0.4); EOSINOPHILS PERCENT AUTO 0.8 % (0.0-6.0); HEMATOCRIT 36.8 % (37.0-47.0); HEMOGLOBIN 12.2 gm/dl (12.0-16.0); IMMATURE GRAN ABSOLUTE AUTO 0.04 K/mm3 (0.00-0.05); IMMATURE GRAN PERCENT AUTO 0.4 % (0.0-0.4); LYMPHOCYTES ABSOLUTE AUTO 1.2 K/mm3 (1.0-4.8); LYMPHOCYTES PERCENT AUTO 11.6 % (24.0-44.0); MEAN CORPUSCULAR HGB CONC 33.2 g/dl (32.0-36.0); MEAN CORPUSCULAR VOLUME 84.4 fl (83.0-99.0); MEAN PLATELET VOLUME 10.7 fl (9.4-12.3); MONOCYTES ABSOLUTE AUTO 0.7 K/mm3 (0.0-0.8); MONOCYTES PERCENT AUTO 6.3 % (0.0-8.0); NEUTROPHILS ABSOLUTE AUTO 8.5 K/mm3 (1.8-7.7); NEUTROPHILS PERCENT AUTO 80.6 % (41.0-71.0); PLATELET COUNT,PLT 300 K/mm3 (150-400); RED BLOOD CELL COUNT 4.36 M/mm3 (4.10-5.30); WHITE BLOOD CELL COUNT,WBC 10.47 K/mm3 (3.9-11.3)
[2023-11-19 09:49] LABS: APPEARANCE,URINE CLEAR (Clear); BILIRUBIN,URINE NEGATIVE (Negative); COLOR,URINE YELLOW (Yellow); GLUCOSE,URINE NEGATIVE (Negative); KETONES,URINE NEGATIVE (Negative); LEUKOCYTE ESTERASE,URINE NEGATIVE (Negative); NITRITE,URINE NEGATIVE (Negative); OCCULT BLOOD,URINE 2+ (Negative); PROTEIN,URINE NEGATIVE (Negative); UROBILINOGEN,URINE 0.2 (0.2-1.0)
[2023-11-19 10:24] LABS: A/G RATIO 0.8 (1-2); ALBUMIN 3.3 g/dl (3.4-5.0); ANION GAP 11.5 (5-15); BILIRUBIN TOTAL 1.6 mg/dL (0.2-1.0); BUN/CREATININE RATIO 8.8 (14-18); C-REACTIVE PROTEIN 15.11 mg/dL (<0.30); CALCIUM 9.1 mg/dL (8.5-10.1); CREATININE 0.8 mg/dL (0.55-1.02); EST CRCL DRUG DOSING (CG) 64.89 mL/min; MAGNESIUM 2.1 mg/dL (1.8-2.4); POTASSIUM,K 3.5 mEq/L (3.5-5.1); PROTEIN TOTAL,TP 7.6 g/dl (6.4-8.2)
[2023-11-19 10:33] LABS: BACTERIA,URINE FEW /hpf (FEW); RBC,URINE 0-5 /hpf (0-5); WBC,URINE 0-5 /hpf (0-5)
[2023-11-19 10:34] LABS: MUCUS,URINE RARE /hpf (FEW)
[2023-11-19] MEDS: methylPREDNISolone Sodium Succinate 125 MG/2 ML SDV IVPUSH ONE (11:18)
[2023-11-19 12:14] VITALS: BP 119/77; PULSE 60
== END 2023-11-19 12:28 | disposition home or self-care (01) ==
LOC: JD.ED 08:39
DX: K57.92 Diverticulitis of intestine, part unspecified, without perforation or abscess without bleeding (principal); I10 Essential (primary) hypertension; Z88.1 Allergy status to other antibiotic agents; Z91.030 Bee allergy status; Z88.8 Allergy status to other drugs, medicaments and biological substances; Z79.899 Other long term (current) drug therapy; Z86.16 Personal history of COVID-19; Z90.49 Acquired absence of other specified parts of digestive tract
CPT/HCPCS: 36415; 76700; 80053; 81001; 83735; 85025; 86140; 96374; 96375; 99284; J1885; J2919; J3490

== ENCOUNTER 2023-12-16 07:00 | Day surgery (SDC) | payer MEDICAID ==
[2023-12-16] MEDS: Lactated Ringers 1,000 ML IV SCH (07:25)
[2023-12-16] MEDS ORDERED: Midazolam 1 MG/ML 2 ML SDV ONE (07:38)
[2023-12-16] MEDS ORDERED: Propofol 200 MG/20 ML SDV ONE ×4 (07:38→07:57)
[2023-12-16] MEDS ORDERED: Lidocaine 1% 4 ML ONE ×2 (07:41→08:20)
[2023-12-16] MEDS ORDERED: Lidocaine 1% PF 2 ML SDV ONE ×2 (07:41)
[2023-12-16] MEDS ORDERED: Sodium Chloride 0.9% 10 ML Syringe FLUSH SCH (09:00)
[2023-12-16 09:12] VITALS: BP 134/61; PULSE 57
== END 2023-12-16 08:57 | disposition home or self-care (01) ==
LOC: JD.SDS 07:00
PROVIDERS: ATTEND Surgery
DX: K57.30 Diverticulosis of large intestine without perforation or abscess without bleeding (principal); I10 Essential (primary) hypertension; E78.00 Pure hypercholesterolemia, unspecified; E66.9 Obesity, unspecified; Z68.41 Body mass index [BMI] 40.0-44.9, adult; Z91.030 Bee allergy status; Z88.1 Allergy status to other antibiotic agents; Z79.899 Other long term (current) drug therapy
CPT/HCPCS: 45378; J2250; J2704; J7120; 00811; J3490

== ENCOUNTER 2023-12-17 10:59 | Emergency (ER) | payer MEDICAID ==
[2023-12-17 12:04] LABS: BASOPHILS PERCENT AUTO 0.3 % (0.0-1.0); EOSINOPHILS ABSOLUTE AUTO 0.1 K/mm3 (0.0-0.4); EOSINOPHILS PERCENT AUTO 1.1 % (0.0-6.0); HEMATOCRIT 36.9 % (37.0-47.0); IMMATURE GRAN ABSOLUTE AUTO 0.04 K/mm3 (0.00-0.05); IMMATURE GRAN PERCENT AUTO 0.4 % (0.0-0.4); LYMPHOCYTES ABSOLUTE AUTO 1.2 K/mm3 (1.0-4.8); LYMPHOCYTES PERCENT AUTO 11.5 % (24.0-44.0); MEAN CORPUSCULAR HEMOGLOBIN 28.3 pg (28.0-32.0); MEAN CORPUSCULAR HGB CONC 32.5 g/dl (32.0-36.0); MEAN PLATELET VOLUME 10.5 fl (9.4-12.3); MONOCYTES ABSOLUTE AUTO 0.9 K/mm3 (0.0-0.8); MONOCYTES PERCENT AUTO 8.6 % (0.0-8.0); NEUTROPHILS ABSOLUTE AUTO 8.1 K/mm3 (1.8-7.7); NEUTROPHILS PERCENT AUTO 78.1 % (41.0-71.0); PLATELET COUNT,PLT 279 K/mm3 (150-400); RED BLOOD CELL COUNT 4.24 M/mm3 (4.10-5.30); WHITE BLOOD CELL COUNT,WBC 10.35 K/mm3 (3.9-11.3)
[2023-12-17 12:26] LABS: A/G RATIO 0.8 (1-2); ALBUMIN 3.3 g/dl (3.4-5.0); ANION GAP 13.8 (5-15); BILIRUBIN TOTAL 1.6 mg/dL (0.2-1.0); BUN/CREATININE RATIO 12.5 (14-18); CALCIUM 9.3 mg/dL (8.5-10.1); CREATININE 0.8 mg/dL (0.55-1.02); EST CRCL DRUG DOSING (CG) 68.02 mL/min; POTASSIUM,K 3.8 mEq/L (3.5-5.1); PROTEIN TOTAL,TP 7.3 g/dl (6.4-8.2)
[2023-12-17 12:28] LABS: LACTIC ACID 0.6 mmol/L (0.4-2.0)
[2023-12-17 13:01] LABS: APPEARANCE,URINE CLEAR (Clear); BILIRUBIN,URINE NEGATIVE (Negative); COLOR,URINE DARK YELLOW (Yellow); GLUCOSE,URINE NEGATIVE (Negative); KETONES,URINE NEGATIVE (Negative); LEUKOCYTE ESTERASE,URINE NEGATIVE (Negative); NITRITE,URINE NEGATIVE (Negative); OCCULT BLOOD,URINE NEGATIVE (Negative); PH,URINE 5.5 (5.0-8.0); PROTEIN,URINE NEGATIVE (Negative); UROBILINOGEN,URINE 0.2 (0.2-1.0)
[2023-12-17] MEDS: Lactated Ringers 1,000 ML IV ONE (13:09)
[2023-12-17] MEDS: Sodium Chloride 0.9% 10 ML Syringe FLUSH ONE (13:36)
[2023-12-17] MEDS: Iopamidol 612 MG/ML 100 ML Bottle IVPUSH ONE (13:36)
[2023-12-17] MEDS: Amoxicillin/Clavulanate K 875-125 MG Tab PO ONE (15:44)
[2023-12-17 19:48] VITALS: BP 111/74; PULSE 75
== END 2023-12-17 15:40 | disposition home or self-care (01) ==
LOC: JD.ED 10:59
DX: K57.92 Diverticulitis of intestine, part unspecified, without perforation or abscess without bleeding (principal); I10 Essential (primary) hypertension; E66.9 Obesity, unspecified; Z91.030 Bee allergy status; Z88.1 Allergy status to other antibiotic agents; Z88.8 Allergy status to other drugs, medicaments and biological substances; Z79.899 Other long term (current) drug therapy; Z86.16 Personal history of COVID-19; Z90.49 Acquired absence of other specified parts of digestive tract; Z68.41 Body mass index [BMI] 40.0-44.9, adult
CPT/HCPCS: 36415; 74177; 80053; 81003; 81025; 83605; 83690; 85025; 96360; 99284; A9270; J3490; J7120; Q9967

== ENCOUNTER 2024-04-26 14:27 | Emergency (ER) | payer MEDICAID ==
[2024-04-26 16:16] VITALS: BP 136/96; PULSE 93
[2024-04-26 17:09] LABS: BASOPHILS PERCENT AUTO 0.5 % (0.0-1.0); EOSINOPHILS ABSOLUTE AUTO 0.1 K/mm3 (0.0-0.4); EOSINOPHILS PERCENT AUTO 1.2 % (0.0-6.0); HEMATOCRIT 38.8 % (37.0-47.0); HEMOGLOBIN 12.8 gm/dl (12.0-16.0); IMMATURE GRAN ABSOLUTE AUTO 0.03 K/mm3 (0.00-0.05); IMMATURE GRAN PERCENT AUTO 0.4 % (0.0-0.4); LYMPHOCYTES ABSOLUTE AUTO 1.6 K/mm3 (1.0-4.8); LYMPHOCYTES PERCENT AUTO 21.4 % (24.0-44.0); MEAN CORPUSCULAR HEMOGLOBIN 28.3 pg (28.0-32.0); MEAN CORPUSCULAR VOLUME 85.7 fl (83.0-99.0); MONOCYTES ABSOLUTE AUTO 0.5 K/mm3 (0.0-0.8); NEUTROPHILS ABSOLUTE AUTO 5.2 K/mm3 (1.8-7.7); NEUTROPHILS PERCENT AUTO 69.5 % (41.0-71.0); PLATELET COUNT,PLT 353 K/mm3 (150-400); RED BLOOD CELL COUNT 4.53 M/mm3 (4.10-5.30); WHITE BLOOD CELL COUNT,WBC 7.44 K/mm3 (3.9-11.3)
[2024-04-26 17:29] LABS: A/G RATIO 0.9 (1-2); ALBUMIN 3.6 g/dl (3.4-5.0); BILIRUBIN TOTAL 0.8 mg/dL (0.2-1.0); BUN/CREATININE RATIO 18.6 (14-18); CALCIUM 8.9 mg/dL (8.5-10.1); CREATININE 0.7 mg/dL (0.55-1.02); EST CRCL DRUG DOSING (CG) 73.36 mL/min; MAGNESIUM 1.9 mg/dL (1.8-2.4); PROTEIN TOTAL,TP 7.7 g/dl (6.4-8.2)
[2024-04-26] MEDS: Metoclopramide 10 MG/2 ML SDV IVPUSH ONE (17:51)
[2024-04-26] MEDS: Sodium Chloride 0.9% 1,000 ML IV ONE (17:51)
[2024-04-26] MEDS: Ketorolac 30 MG/ML SDV IVPUSH ONE (18:39)
== END 2024-04-26 18:49 | disposition home or self-care (01) ==
LOC: JD.ED 14:27
DX: R51.9 Headache, unspecified (principal); R11.0 Nausea; I10 Essential (primary) hypertension; E66.9 Obesity, unspecified; Z68.41 Body mass index [BMI] 40.0-44.9, adult; Z86.16 Personal history of COVID-19; Z90.49 Acquired absence of other specified parts of digestive tract; Z88.8 Allergy status to other drugs, medicaments and biological substances; Z91.030 Bee allergy status; Z79.899 Other long term (current) drug therapy
CPT/HCPCS: 36415; 80053; 83735; 85025; 93005; 96361; 96374; 99284; J2765; J7030; 93010; 99283

== ENCOUNTER 2024-12-30 12:51 | Emergency (ER) | payer MEDICAID ==
[2024-12-30 13:34] LABS: BASOPHILS ABSOLUTE AUTO 0.0 K/mm3 (0.0-0.2); BASOPHILS PERCENT AUTO 0.4 % (0.0-1.0); EOSINOPHILS ABSOLUTE AUTO 0.1 K/mm3 (0.0-0.4); EOSINOPHILS PERCENT AUTO 0.7 % (0.0-6.0); IMMATURE GRAN ABSOLUTE AUTO 0.05 K/mm3 (0.00-0.05); IMMATURE GRAN PERCENT AUTO 0.5 % (0.0-0.4); LYMPHOCYTES ABSOLUTE AUTO 1.3 K/mm3 (1.0-4.8); LYMPHOCYTES PERCENT AUTO 12.0 % (24.0-44.0); MEAN PLATELET VOLUME 10.2 fl (9.4-12.3); MONOCYTES ABSOLUTE AUTO 0.6 K/mm3 (0.0-0.8); MONOCYTES PERCENT AUTO 5.4 % (0.0-8.0); NEUTROPHILS ABSOLUTE AUTO 8.5 K/mm3 (1.8-7.7); NEUTROPHILS PERCENT AUTO 81.0 % (41.0-71.0); NRBC ABSOLUTE 0.00 (0.00-0.02); NRBC PERCENT 0.0 % (0.0-0.2); PLATELET COUNT,PLT 374 K/mm3 (150-400); RED BLOOD CELL COUNT 4.43 M/mm3 (4.10-5.30); WHITE BLOOD CELL COUNT,WBC 10.52 K/mm3 (3.9-11.3)
[2024-12-30] MEDS: Iopamidol 612 MG/ML 100 ML Bottle IVPUSH ONE (13:42)
[2024-12-30] MEDS: Ketorolac 15 MG/ML SDV IVPUSH ONE (13:44)
[2024-12-30] MEDS: Sodium Chloride 0.9% 10 ML Syringe FLUSH PRN (13:44)
[2024-12-30 13:49] LABS: APPEARANCE,URINE CLEAR (Clear); GLUCOSE,URINE NEGATIVE (Negative); OCCULT BLOOD,URINE NEGATIVE (Negative)
[2024-12-30 13:58] LABS: A/G RATIO 0.7 (1-2); ALANINE AMINOTRANSFERASE,ALT 44.0 U/L (14-59); ASPARTATE AMNIOTRANSFERASE,AST 20.0 U/L (15-37); BILIRUBIN TOTAL 0.7 mg/dL (0.2-1.0); BLOOD UREA NITROGEN,BUN 5.0 mg/dL (7-18); CARBON DIOXIDE,CO2 28.0 mEq/L (21-32); CHLORIDE,CL 102.0 mEq/L (98-107); CREATININE 0.6 mg/dL (0.55-1.02); EST CRCL DRUG DOSING (CG) 85.59 mL/min; ESTIMATED GFR 110.0 mL/min (>60); GLUCOSE RANDOM 109.0 mg/dL (70-99); POTASSIUM,K 3.5 mEq/L (3.5-5.1); PROTEIN TOTAL,TP 7.5 g/dl (6.4-8.2); SODIUM,NA 136.0 mEq/L (136-145)
[2024-12-30 18:03] VITALS: BP 122/78; PULSE 78
== END 2024-12-30 17:50 | disposition home or self-care (01) ==
LOC: JD.ED 12:51
DX: K57.32 Diverticulitis of large intestine without perforation or abscess without bleeding (principal); I10 Essential (primary) hypertension; E66.9 Obesity, unspecified; Z86.16 Personal history of COVID-19; Z79.899 Other long term (current) drug therapy; Z88.8 Allergy status to other drugs, medicaments and biological substances; Z91.030 Bee allergy status; Z88.1 Allergy status to other antibiotic agents; Z68.43 Body mass index [BMI] 50.0-59.9, adult
CPT/HCPCS: 36415; 74177; 80053; 81001; 83690; 84703; 85025; 96361; 96365; 96375; 99285; J1885; J2543; J7030; Q9967

== ENCOUNTER 2024-12-31 05:53 | Inpatient (IN) | payer MEDICAID ==
[2024-12-31] MEDS ORDERED: Sodium Chloride 0.9% 10 ML Syringe FLUSH PRN (06:01)
[2024-12-31 06:36] LABS: BASOPHILS ABSOLUTE AUTO 0.0 K/mm3 (0.0-0.2); BASOPHILS PERCENT AUTO 0.2 % (0.0-1.0); EOSINOPHILS ABSOLUTE AUTO 0.0 K/mm3 (0.0-0.4); EOSINOPHILS PERCENT AUTO 0.1 % (0.0-6.0); IMMATURE GRAN ABSOLUTE AUTO 0.07 K/mm3 (0.00-0.05); IMMATURE GRAN PERCENT AUTO 0.4 % (0.0-0.4); LYMPHOCYTES ABSOLUTE AUTO 0.9 K/mm3 (1.0-4.8); LYMPHOCYTES PERCENT AUTO 5.7 % (24.0-44.0); MEAN PLATELET VOLUME 10.0 fl (9.4-12.3); MONOCYTES ABSOLUTE AUTO 0.9 K/mm3 (0.0-0.8); MONOCYTES PERCENT AUTO 5.7 % (0.0-8.0); NEUTROPHILS ABSOLUTE AUTO 13.8 K/mm3 (1.8-7.7); NEUTROPHILS PERCENT AUTO 87.9 % (41.0-71.0); NRBC ABSOLUTE 0.00 (0.00-0.02); NRBC PERCENT 0.0 % (0.0-0.2); PLATELET COUNT,PLT 350 K/mm3 (150-400); RED BLOOD CELL COUNT 4.39 M/mm3 (4.10-5.30); WHITE BLOOD CELL COUNT,WBC 15.67 K/mm3 (3.9-11.3)
[2024-12-31 06:58] LABS: APPEARANCE,URINE SLT CLOUDY (Clear); GLUCOSE,URINE NEGATIVE (Negative); OCCULT BLOOD,URINE TRACE-INTACT (Negative)
[2024-12-31 07:01] LABS: A/G RATIO 0.7 (1-2); ALANINE AMINOTRANSFERASE,ALT 37.0 U/L (14-59); ASPARTATE AMNIOTRANSFERASE,AST 15.0 U/L (15-37); BILIRUBIN TOTAL 1.1 mg/dL (0.2-1.0); BLOOD UREA NITROGEN,BUN 5.0 mg/dL (7-18); CARBON DIOXIDE,CO2 24.0 mEq/L (21-32); CHLORIDE,CL 101.0 mEq/L (98-107); CREATININE 0.6 mg/dL (0.55-1.02); EST CRCL DRUG DOSING (CG) 85.59 mL/min; ESTIMATED GFR 110.0 mL/min (>60); GLUCOSE RANDOM 159.0 mg/dL (70-99); POTASSIUM,K 3.5 mEq/L (3.5-5.1); PROTEIN TOTAL,TP 7.3 g/dl (6.4-8.2); SODIUM,NA 137.0 mEq/L (136-145)
[2024-12-31 07:04] LABS: LACTIC ACID 1.0 mmol/L (0.4-2.0)
[2024-12-31] MEDS: Sodium Chloride 0.9% 10 ML Syringe FLUSH PRN (07:19)
[2024-12-31] MEDS: Ondansetron 4 MG/2 ML SDV IVPUSH ONE (07:20)
[2024-12-31] MEDS: fentaNYL 100 MCG/2 ML SDV IVPUSH ONE (07:20)
[2024-12-31] MEDS: Iopamidol 612 MG/ML 100 ML Bottle IVPUSH ONE (09:02)
[2024-12-31] MEDS ORDERED: Ondansetron 4 MG/2 ML SDV IV PRN (09:41)
[2024-12-31] MEDS ORDERED: Ondansetron 4 MG Tab.DIS PO PRN (09:41)
[2024-12-31] MEDS ORDERED: Naloxone 0.4 MG/ML SDV IVPUSH PRN (09:41)
[2024-12-31] MEDS ORDERED: Sennosides/Docusate Sodium 50-8.6 MG Tab PO PRN (09:41)
[2024-12-31] MEDS: Magnesium Sulfat/D5W 1GM/100ML 1 GM in Premix Bag 1 BAG IV ONE (12:42)
[2024-12-31] MEDS: Potassium Chloride 20 MEQ Tab.ER PO ONE (12:42)
[2025-01-01 05:40] LABS: BASOPHILS ABSOLUTE AUTO 0.0 K/mm3 (0.0-0.2); BASOPHILS PERCENT AUTO 0.2 % (0.0-1.0); EOSINOPHILS ABSOLUTE AUTO 0.0 K/mm3 (0.0-0.4); EOSINOPHILS PERCENT AUTO 0.1 % (0.0-6.0); IMMATURE GRAN ABSOLUTE AUTO 0.13 K/mm3 (0.00-0.05); IMMATURE GRAN PERCENT AUTO 0.7 % (0.0-0.4); LYMPHOCYTES ABSOLUTE AUTO 1.1 K/mm3 (1.0-4.8); LYMPHOCYTES PERCENT AUTO 6.0 % (24.0-44.0); MEAN PLATELET VOLUME 10.3 fl (9.4-12.3); MONOCYTES ABSOLUTE AUTO 1.2 K/mm3 (0.0-0.8); MONOCYTES PERCENT AUTO 6.9 % (0.0-8.0); NEUTROPHILS ABSOLUTE AUTO 15.3 K/mm3 (1.8-7.7); NEUTROPHILS PERCENT AUTO 86.1 % (41.0-71.0); NRBC ABSOLUTE 0.00 (0.00-0.02); NRBC PERCENT 0.0 % (0.0-0.2); PLATELET COUNT,PLT 308 K/mm3 (150-400); RED BLOOD CELL COUNT 3.90 M/mm3 (4.10-5.30); WHITE BLOOD CELL COUNT,WBC 17.76 K/mm3 (3.9-11.3)
[2025-01-01 05:58] LABS: A/G RATIO 0.6 (1-2); ALANINE AMINOTRANSFERASE,ALT 31.0 U/L (14-59); ASPARTATE AMNIOTRANSFERASE,AST 15.0 U/L (15-37); BILIRUBIN TOTAL 1.8 mg/dL (0.2-1.0); BLOOD UREA NITROGEN,BUN 4.0 mg/dL (7-18); CARBON DIOXIDE,CO2 25.0 mEq/L (21-32); CHLORIDE,CL 101.0 mEq/L (98-107); CREATININE 0.8 mg/dL (0.55-1.02); EST CRCL DRUG DOSING (CG) 64.19 mL/min; ESTIMATED GFR 90.0 mL/min (>60); GLUCOSE RANDOM 133.0 mg/dL (70-99); PHOSPHORUS 2.6 mg/dL (2.6-4.7); POTASSIUM,K 3.5 mEq/L (3.5-5.1); PROTEIN TOTAL,TP 6.7 g/dl (6.4-8.2); SODIUM,NA 135.0 mEq/L (136-145)
[2025-01-01] MEDS: Saccharomyces Boulardii (Probiotic) 250 MG Cap PO SCH (08:10)
[2025-01-01] MEDS: NS + KCl 20mEq/L 1,000 ML IV SCH (15:40)
[2025-01-02 04:46] LABS: BASOPHILS ABSOLUTE AUTO 0.0 K/mm3 (0.0-0.2); BASOPHILS PERCENT AUTO 0.3 % (0.0-1.0); EOSINOPHILS ABSOLUTE AUTO 0.1 K/mm3 (0.0-0.4); EOSINOPHILS PERCENT AUTO 0.7 % (0.0-6.0); IMMATURE GRAN ABSOLUTE AUTO 0.11 K/mm3 (0.00-0.05); IMMATURE GRAN PERCENT AUTO 0.8 % (0.0-0.4); LYMPHOCYTES ABSOLUTE AUTO 1.1 K/mm3 (1.0-4.8); LYMPHOCYTES PERCENT AUTO 7.9 % (24.0-44.0); MEAN PLATELET VOLUME 10.7 fl (9.4-12.3); MONOCYTES ABSOLUTE AUTO 0.9 K/mm3 (0.0-0.8); MONOCYTES PERCENT AUTO 6.2 % (0.0-8.0); NEUTROPHILS ABSOLUTE AUTO 11.9 K/mm3 (1.8-7.7); NEUTROPHILS PERCENT AUTO 84.1 % (41.0-71.0); NRBC ABSOLUTE 0.00 (0.00-0.02); NRBC PERCENT 0.0 % (0.0-0.2); PLATELET COUNT,PLT 247 K/mm3 (150-400); RED BLOOD CELL COUNT 3.68 M/mm3 (4.10-5.30); WHITE BLOOD CELL COUNT,WBC 14.11 K/mm3 (3.9-11.3)
[2025-01-02 05:17] LABS: A/G RATIO 0.6 (1-2); ALANINE AMINOTRANSFERASE,ALT 26.0 U/L (14-59); ASPARTATE AMNIOTRANSFERASE,AST 13.0 U/L (15-37); BILIRUBIN TOTAL 1.1 mg/dL (0.2-1.0); BLOOD UREA NITROGEN,BUN 5.0 mg/dL (7-18); CARBON DIOXIDE,CO2 24.0 mEq/L (21-32); CHLORIDE,CL 104.0 mEq/L (98-107); CREATININE 0.6 mg/dL (0.55-1.02); EST CRCL DRUG DOSING (CG) 85.59 mL/min; ESTIMATED GFR 110.0 mL/min (>60); GLUCOSE RANDOM 116.0 mg/dL (70-99); PHOSPHORUS 3.0 mg/dL (2.6-4.7); POTASSIUM,K 3.6 mEq/L (3.5-5.1); PROTEIN TOTAL,TP 6.4 g/dl (6.4-8.2); SODIUM,NA 137.0 mEq/L (136-145)
[2025-01-03 07:07] LABS: BASOPHILS ABSOLUTE AUTO 0.0 K/mm3 (0.0-0.2); BASOPHILS PERCENT AUTO 0.2 % (0.0-1.0); EOSINOPHILS ABSOLUTE AUTO 0.2 K/mm3 (0.0-0.4); EOSINOPHILS PERCENT AUTO 1.9 % (0.0-6.0); IMMATURE GRAN ABSOLUTE AUTO 0.07 K/mm3 (0.00-0.05); IMMATURE GRAN PERCENT AUTO 0.7 % (0.0-0.4); LYMPHOCYTES ABSOLUTE AUTO 1.2 K/mm3 (1.0-4.8); LYMPHOCYTES PERCENT AUTO 11.3 % (24.0-44.0); MEAN PLATELET VOLUME 10.1 fl (9.4-12.3); MONOCYTES ABSOLUTE AUTO 0.7 K/mm3 (0.0-0.8); MONOCYTES PERCENT AUTO 6.4 % (0.0-8.0); NEUTROPHILS ABSOLUTE AUTO 8.3 K/mm3 (1.8-7.7); NEUTROPHILS PERCENT AUTO 79.5 % (41.0-71.0); NRBC ABSOLUTE 0.00 (0.00-0.02); NRBC PERCENT 0.0 % (0.0-0.2); PLATELET COUNT,PLT 298 K/mm3 (150-400); RED BLOOD CELL COUNT 3.39 M/mm3 (4.10-5.30); WHITE BLOOD CELL COUNT,WBC 10.47 K/mm3 (3.9-11.3)
[2025-01-03 07:28] LABS: A/G RATIO 0.5 (1-2); ALANINE AMINOTRANSFERASE,ALT 27.0 U/L (14-59); ASPARTATE AMNIOTRANSFERASE,AST 15.0 U/L (15-37); BILIRUBIN TOTAL 0.8 mg/dL (0.2-1.0); BLOOD UREA NITROGEN,BUN 3.0 mg/dL (7-18); CARBON DIOXIDE,CO2 26.0 mEq/L (21-32); CHLORIDE,CL 104.0 mEq/L (98-107); CREATININE 0.7 mg/dL (0.55-1.02); EST CRCL DRUG DOSING (CG) 73.36 mL/min; ESTIMATED GFR 106.0 mL/min (>60); GLUCOSE RANDOM 112.0 mg/dL (70-99); POTASSIUM,K 3.1 mEq/L (3.5-5.1); PROTEIN TOTAL,TP 6.5 g/dl (6.4-8.2); SODIUM,NA 140.0 mEq/L (136-145)
[2025-01-03] MEDS: Potassium Chloride 20 MEQ Tab.ER PO ONE (08:22)
[2025-01-03 12:11] VITALS: BP 136/83; PULSE 75
== END 2025-01-03 12:15 | disposition home or self-care (01) | DRG 392 ==
LOC: JD.ED 05:53 → JD.MS 07:55
PROVIDERS: ADMIT Student in an Organized Health Care Education/Training Program; ATTEND Family Medicine
DX: K57.32 Diverticulitis of large intestine without perforation or abscess without bleeding (principal); Z68.41 Body mass index [BMI] 40.0-44.9, adult; E03.9 Hypothyroidism, unspecified; E87.6 Hypokalemia; Z79.890 Hormone replacement therapy; D64.9 Anemia, unspecified; E86.0 Dehydration; Z91.030 Bee allergy status; H54.7 Unspecified visual loss; R56.9 Unspecified convulsions; E88.89 Other specified metabolic disorders; N83.209 Unspecified ovarian cyst, unspecified side; I10 Essential (primary) hypertension; M19.90 Unspecified osteoarthritis, unspecified site; G43.909 Migraine, unspecified, not intractable, without status migrainosus; E66.9 Obesity, unspecified; Z86.16 Personal history of COVID-19; Z98.890 Other specified postprocedural states; Z90.49 Acquired absence of other specified parts of digestive tract; Z79.899 Other long term (current) drug therapy; Z88.8 Allergy status to other drugs, medicaments and biological substances
CPT/HCPCS: 36415; 80053; 81001; 83605; 83690; 83735; 84703; 85025; 86140; 96361; 96374; 96375; 99284; J2405; J3010; J7030; 84100; 99285; A9270-GY; J1650; J2270; J2543; J3475; J3480